=== PATIENT | female | born 1995 | race Caucasian/White ===

== ENCOUNTER 2020-08-18 16:25 | Emergency (ER) | payer OTHER, SELFPAY ==
[2020-08-18 16:52] VITALS: BP 119/92; PULSE 95; RESP 18; TEMP 37.4; O2SAT 99
[2020-08-18 17:08] VITALS: BMI 26.4
--- NOTE | 2020-08-18 17:57 | PC.NURSE ---
covid swab performed
--- NOTE | 2020-08-18 18:40 | ED.URI ---
HPI - URI/Sore Throat General Chief Complaint: Upper Respiratory Symptoms <Arthur Guan NP - Last Filed: 08/18/20 20:34> Stated Complaint: covid screening <Arthur Guan NP - Last Filed: 08/18/20 20:34> Time Seen by Provider: 08/18/20 18:40 <Arthur Guan NP - Last Filed: 08/18/20 20:34> Source: patient <Arthur Guan NP - Last Filed: 08/18/20 20:34> Mode of arrival: ambulatory <Arthur Guan NP - Last Filed: 08/18/20 20:34> Limitations: no limitations <Arthur Guan NP - Last Filed: 08/18/20 20:34> History of Present Illness HPI Narrative: 24-year-old female who reports she had runny nose and sore throat 3 days ago her symptoms resolved now her children have developed symptoms of runny nose and congestion states she would like to get tested for COVID-19. Asymptomatic otherwise. <Arthur Guan NP - Last Filed: 08/18/20 20:34> Severity: mild <Arthur Guan NP - Last Filed: 08/18/20 20:34> Able to tolerate fluids by mouth: Yes <Arthur Guan NP - Last Filed: 08/18/20 20:34> Treatments prior to arrival: none <Arthur Guan NP - Last Filed: 08/18/20 20:34> Related Data Allergies/Adverse Reactions: Allergies Allergy/AdvReac Type Severity Reaction Status Date / Time No Known Allergies Allergy Unverified 04/14/20 19:52 [No Known Allergies*] <Arthur Guan NP - Last Filed: 08/18/20 20:34> Review of Systems Review of Systems: Constitutional: No Weight loss, No Fever, No Chills, No Night Sweats, No Fatigue, No Malaise ENT/Mouth: No Hearing loss, No Ear Pain, No Nasal Congestion, No Sinus Pain, No Hoarseness, No sore throat, No Rhinorrhea, No Swallowing Difficulty Eyes: No Eye Pain, No Swelling, No Redness, No Foreign Body, No Discharge, No Vision Changes Cardiovascular: No Chest Pain, No SOB, No Dyspnea on Exertion, No Orthopnea, No Edema, No Palpitations Respiratory: No Cough, No Sputum, No Wheezing, No Smoke Exposure, No Dyspnea Gastrointestinal: No Nausea, No Vomiting, No Diarrhea, No Constipation, No abdominal Pain, No Hematochezia, No Melena Genitourinary: no irregular bleeding, No Dysuria, No Urinary Frequency, No Hematuria, No Urinary Incontinence, No Urgency, No Flank Pain, No Urinary Flow Changes, No Hesitancy Musculoskeletal: No joint pain, No Myalgias, No Joint Swelling Skin: No Skin Lesions, No rash Neuro: No Weakness, No Numbness, No Paresthesias, No Loss of Consciousness, No Dizziness, No Headache Psych: No Social Issues Heme/Lymph: No Bruising, No Bleeding,No Lymphadenopathy Endocrine: No Polyuria, No Polydipsia, No Temperature Intolerance <Arthur Guan NP - Last Filed: 08/18/20 20:34> Yes all other systems are reviewed and are negative <Arthur Guan NP - Last Filed: 08/18/20 20:34> PMFSH Past Medical History Medical History: Medical History (Updated 08/18/20 @ 18:41 by Arthur Guan NP) No significant past medical history <Arthur Guan NP - Last Filed: 08/18/20 20:34> Social History Social History: Social History Advance Directives: No Advance Directives Information Provided: No <Arthur Guan NP - Last Filed: 08/18/20 20:34> Physical Exam Vital Signs: Vital Signs: Last Vital Signs Temp 99.3 F 08/18/20 16:52 Pulse 95 08/18/20 16:52 Resp 18 08/18/20 16:52 BP 119/92 H 08/18/20 16:52 Pulse Ox 99 08/18/20 16:52 Body Mass Index 26.4 Reviewed <Arthur Guan NP - Last Filed: 08/18/20 20:34> Vital Signs: Last Vital Signs Temp 99.3 F 08/18/20 16:52 Pulse 95 08/18/20 16:52 Resp 18 08/18/20 16:52 BP 119/92 H 08/18/20 16:52 Pulse Ox 99 08/18/20 16:52 Body Mass Index 26.4 <Ross Mendoza MD - Last Filed: 08/29/20 16:48> Const: General: cooperative and healthy appearing; No acute distress or intoxicated appearing <[facility] [employer] BUSINESS [employer]ST - Last Filed: 08/18/20 20:34> Nutritional Appearance: average body habitus <[facility] [employer] BUSINESS ANALYST - Last Filed: 08/18/20 20:34> Orientation/consciousness: patient oriented x3 <[facility] - Last Filed: 08/18/20 20:34> HENMT: Head: Yes normal to inspection <[facility] [employer] BUSINESS ANALYST - Last Filed: 08/18/20 20:34> Ears: hearing grossly normal bilaterally <[facility] - Last Filed: 08/18/20 20:34> Eyes: General: appearance normal, both eyes and all related structures <[facility] - Last Filed: 08/18/20 20:34> Visual Vo: normal visual vo by confrontation <[facility] - Last Filed: 08/18/20 20:34> Neck: Neck: Yes normal visual inspection, No positive Brudzinski's sign, No positive Kernig's sign and No tender <[facility] [employer] BUSINESS ANALYST - Last Filed: 08/18/20 20:34> Thyroid: Thyroid normal <[facility] Last Filed: 08/18/20 20:34> Chest: Chest palpation & inspection: normal inspection of the chest <[facility] [employer] BUSINESS ANALYST - Last Filed: 08/18/20 20:34> Resp: Effort & Inspection: normal respiratory effort <[facility] Last Filed: 08/18/20 20:34> Auscultation: clear to auscultation bilaterally <[facility] - Last Filed: 08/18/20 20:34> Cardio: Jugular venous distension: no JVD <[facility] - Last Filed: 08/18/20 20:34> Rhythm: regular rhythm <[facility] - Last Filed: 08/18/20 20:34> Heart sounds: S1 normal heart sound present and S2 normal heart sound present <[facility] [employer] BUSINESS ANALYST - Last Filed: 08/18/20 20:34> GI: Inspection: Yes normal to inspection <[facility] [employer] BUSINESS ANALYST - Last Filed: 08/18/20 20:34> Percussion: Yes normal to percussion <Arthur Guan NP - Last Filed: 08/18/20 20:34> Auscultation: normal bowel sounds <Arthur Guan NP - Last Filed: 08/18/20 20:34> : General: Yes no CVA tenderness <Arthurshahida Guan NP - Last Filed: 08/18/20 20:34> Back/Spine/Pelvis: Back: no CVA tenderness <Arthur Guan NP - Last Filed: 08/18/20 20:34> Skin: General skin exam: no rashes or lesions noted <Arthur Guan NP - Last Filed: 08/18/20 20:34> Neuro: General: patient oriented x3 <Arthur Guan NP - Last Filed: 08/18/20 20:34> Extrem: General: Yes normal to inspection <Arthurshahida Guan NP - Last Filed: 08/18/20 20:34> Course Course Course Narrative: Asymptomatic requesting COVID-19 here with multiple family members. No other complaints. Requesting the scene to be called with results. , <Arthur Guan NP - Last Filed: 08/18/20 20:34> I have reviewed the chart <Ross Mendoza MD - Last Filed: 08/29/20 16:48> MDM - URI/Sore Throat Lab Data Labs: Lab Results 08/18/20 Range/Units 17:50 Coronavirus (PCR) NEGATIVE (Negative) Influenza Type A (PCR) NEGATIVE (Negative) Influenza Type B (PCR) NEGATIVE (Negative) RSV RNA Qual (PCR) NEGATIVE (Negative) <Arthur Guan NP - Last Filed: 08/18/20 20:34> Lab Results 08/18/20 Range/Units 17:50 Coronavirus (PCR) NEGATIVE (Negative) Influenza Type A (PCR) NEGATIVE (Negative) Influenza Type B (PCR) NEGATIVE (Negative) RSV RNA Qual (PCR) NEGATIVE (Negative) <Ross Mendoza MD - Last Filed: 08/29/20 16:48> Discharge Plan Discharge Clinical Impression: COVID-19 ruled out by laboratory testing <Arthur Guan NP - Last Filed: 08/18/20 20:34> Patient Disposition: Home, Self-Care <Arthur Guan NP - Last Filed: 08/18/20 20:34> Instructions: Viral Syndrome (ED) <Arthur Guan NP - Last Filed: 08/18/20 20:34> Additional Instructions: We will call you with the COVID-19 test results and have home Return if any concerns or worsening symptoms Follow CDC/state guidelines Thank you <Arthur Guan NP - Last Filed: 08/18/20 20:34> Referrals: ED Physician,Generic [Physician] - 1 week <Arthur Guan NP - Last Filed: 08/18/20 20:34> Discharge Date/Time: 08/18/20 18:55 <Arthur Guan NP - Last Filed: 08/18/20 20:34>
[2020-08-18 18:50] LABS: Influenza A PCR NEGATIVE (Negative); Influenza B PCR NEGATIVE (Negative); Resp Syncy Virus RNA Qual PCR NEGATIVE (Negative); SARS COV2 PCR INHOUSE NEGATIVE (Negative)
== END 2020-08-18 18:55 | disposition home or self-care (01) ==
PROVIDERS: Nurse Practitioner Primary Care; Emergency Provider Emergency Medicine
DX: U07.1 COVID-19 (principal); R09.89 Other specified symptoms and signs involving the circulatory and respiratory systems
CPT/HCPCS: 0241U; 36415; 99283

== ENCOUNTER 2021-03-14 10:41 | Emergency (ER) | payer OTHER, SELFPAY ==
--- NOTE | ~2021-03-14 | US_ITS ---
EXAMINATION: US PELVIS CLINICAL INFORMATION: Suprapubic pain. COMPARISON: None TECHNIQUE: Ultrasound of the pelvis is performed using both transabdominal and transvaginal transducers along with Doppler. Transvaginal imaging is performed due to inadequate visualization transabdominally. FINDINGS: Uterus: The uterus is anteverted and measures 10.1 x 3.2 x 4.3 cm. The double wall endometrial thickness is 0.3 mm. The uterus is smooth in contour and has normal myometrial echogenicity. No visible fibroid. Adnexa: Both ovaries are visualized. There is normal color flow to the adnexa. There is no ovarian torsion There is no pelvic ascites or fluid collection. Right ovary measures 1.2 x 2.0 x 2.2 cm (volume 2.8 mL). There is normal Doppler flow. Left ovary measures 3.2 x 1.4 x 1.3 cm (volume 3.1 mL). There is normal Doppler flow. US/US pelvic and transvaginal IMPRESSION: Unremarkable examination.
--- NOTE | ~2021-03-14 | US_ITS ---
EXAMINATION: US PELVIS CLINICAL INFORMATION: Suprapubic pain. COMPARISON: None TECHNIQUE: Ultrasound of the pelvis is performed using both transabdominal and transvaginal transducers along with Doppler. Transvaginal imaging is performed due to inadequate visualization transabdominally. FINDINGS: Uterus: The uterus is anteverted and measures 10.1 x 3.2 x 4.3 cm. The double wall endometrial thickness is 0.3 mm. The uterus is smooth in contour and has normal myometrial echogenicity. No visible fibroid. Adnexa: Both ovaries are visualized. There is normal color flow to the adnexa. There is no ovarian torsion There is no pelvic ascites or fluid collection. Right ovary measures 1.2 x 2.0 x 2.2 cm (volume 2.8 mL). There is normal Doppler flow. Left ovary measures 3.2 x 1.4 x 1.3 cm (volume 3.1 mL). There is normal Doppler flow. US/US pelvic ovarian doppler IMPRESSION: Unremarkable examination.
--- NOTE | ~2021-03-14 | CT_ITS ---
EXAMINATION: CT ABDOMEN AND PELVIS WITHOUT CONTRAST CLINICAL INFORMATION: Lower abdominal pain. COMPARISON: Pelvic ultrasound dated 03/14/2021. TECHNIQUE: Multidetector volumetric imaging was performed from the superior aspect of the liver through the pubic symphysis. Sagittal and coronal reformatted images were obtained on the technologist's workstation. This CT examination was performed using dose optimization techniques as appropriate, variously including the following: *Automated exposure control *Adjustment of mA and/or kV according to patient size (this includes techniques or standardized protocols for targeted exams where dose is matched to indication/reason for exam; i.e. extremities or head) *Use of iterative reconstruction technique DLP: 424 mGy-cm FINDINGS: LUNG BASES: The visualized lung bases are unremarkable. LIVER, GALLBLADDER, AND BILIARY TREE: The liver is normal in size, shape, and attenuation. No focal hepatic lesion or biliary ductal dilatation is present. The gallbladder is unremarkable with no evidence of radiopaque gallstones, gallbladder wall thickening, or obvious pericholecystic inflammatory changes. PANCREAS: Unremarkable. SPLEEN: Unremarkable. ADRENAL GLANDS: Unremarkable. KIDNEYS AND URETERS: The kidneys are normal in size, shape, and attenuation. No hydronephrosis, hydroureter, or calculi seen. No perinephric stranding. BLADDER: Unremarkable. GASTROINTESTINAL TRACT: There is a mild to moderate stool burden, suggesting possible constipation. No bowel obstruction, free intraperitoneal air or abscess is seen. There is no focal bowel wall thickening. No significant diverticulosis or diverticulitis is seen. The vermiform appendix is not appreciated with certainty; however, there is no finding to suggest appendicitis. ABDOMINAL WALL: No significant hernia is appreciated. LYMPH NODES: Normal. VASCULAR: Unremarkable. PELVIC VISCERA: The uterus and adnexa are unremarkable. OSSEOUS STRUCTURES: Unremarkable. CT/CT abdomen pelvis wo con IMPRESSION: 1. Findings suggest possible constipation. Please correlate clinically. No bowel obstruction, free intraperitoneal air or abscess is seen. There is no appendicitis or diverticulitis seen. 2. There is no urinary calculus or obstructive uropathy noted. 3. No abdominopelvic mass, free fluid or lymphadenopathy is seen.
[2021-03-14 11:32] VITALS: BP 121/94; PULSE 75; RESP 15; TEMP 36.6; O2SAT 100; BMI 26.4
[2021-03-14 12:28] LABS: MANUAL DIFF FLAG NO
[2021-03-14 12:32] LABS: Glucose Urine UA NEG (NEG); Leukocyte Esterase Urine 2+ (NEG); Nitrite Urine NEG (NEG); Specific Gravity - Urine 1.025 (1.005-1.025); UACC Culture Trigger YES; Urine Blood 3+ (NEG); Urine Ketones NEG (NEG); Urine Protein TRACE MG/DL (NEG-TRACE)
[2021-03-14 12:33] LABS: Appearance Urine HAZY; Color Urine YELLOW
[2021-03-14 12:34] LABS: Basophils Percent Auto 0.4 % (0-2); Eosinophils Absolute Auto 0.3 X10*3/uL (0.0-0.4); Hematocrit 44.7 % (37-47); Hemoglobin 14.5 g/dl (12.0-16.0); Imm Gran Abs Auto 0.02 X10*3/uL (0.00-0.03); Imm Gran Pct Auto 0.3 % (0.0-0.4); Lymphocytes Absolute Auto 2.4 X10*3/uL (1.2-4.9); Lymphocytes Percent Auto 30.6 % (20-40); Mean Corpuscular HGB Conc 32.4 g/dl (31.0-35.0); Mean Corpuscular Hemoglobin 28.4 pg (27.0-33.0); Mean Corpuscular Volume 87.6 fL (80-98); Mean Platelet Volume 10.2 fL (9.4-12.3); Monocytes Absolute Auto 0.3 X10*3/uL (0.1-1.2); Monocytes Percent Auto 4.1 % (2-11); Neutrophils Absolute Auto 4.8 X10*3/uL (2.0-8.3); Neutrophils Percent Auto 60.6 % (45-73); Platelet Count 286 X10*3/uL (160-400); Red Cell Distribution Width 12.5 % (11.0-16.0)
[2021-03-14 12:43] LABS: Bacteria Urine TRACE /LPF; Squamous Epithelial Cell Urine 1+ /LPF; WBC Urine 30-49 /HPF (0-4)
--- NOTE | 2021-03-14 12:43 | PC.NURSE ---
Pt currently off unit in Ultrasound. No acute distress noted. Urine specimens and labs obtained prior to departure to US.
[2021-03-14 12:44] LABS: Renal Epithelial Cells Urine 1+ /LPF
[2021-03-14 12:54] LABS: UPreg QC Valid YES; Urine Pregnancy NEGATIVE (NEGATIVE)
[2021-03-14 12:59] LABS: Alanine Aminotransferase 16 U/L (0-31); Albumin Level 4.3 g/dL (3.5-5.0); Alkaline Phosphatase 90 U/L (39-117); Anion Gap 11 (12-20); Aspartate Amino Transferase 15 U/L (5-31); Bilirubin Total 0.4 mg/dL (0.0-1.0); Blood Urea Nitrogen 9 mg/dL (9-16); Calcium 9.5 mg/dL (8.4-10.2); Carbon Dioxide 24 mmol/L (22-29); Chloride 107 mmol/L (96-108); Creatinine Clr Calc Pharmacy 102.9; Estimated Glomerular Filt Rate > 60; Glucose Random 82 mg/dL (60-115); Magnesium 2.4 mg/dL (1.6-2.6); Potassium 4.3 mmol/L (3.3-5.1); Sodium 138 mmol/L (135-145); Total Protein 7.3 g/dL (6.5-8.0)
[2021-03-14 13:17] LABS: Influenza A PCR NEGATIVE (Negative); Influenza B PCR NEGATIVE (Negative); Resp Syncy Virus RNA Qual PCR NEGATIVE (Negative); SARS COV2 PCR INHOUSE NEGATIVE (Negative)
[2021-03-14 14:00] VITALS: BP 120/70; PULSE 72; RESP 16; TEMP 36.8; O2SAT 98
--- NOTE | 2021-03-14 14:47 | ED_ITS ---
HPI - Abdominal Pain General Chief Complaint: Urogenital-Female Stated Complaint: pelvic pain Time Seen by Provider: 03/14/21 11:44 Source: patient Mode of arrival: ambulatory Limitations: no limitations History of Present Illness HPI narrative: 25-year-old female with a past surgical history of an appendectomy and a presenting to the ED with complaints of suprapubic abdominal pain with associated dysuria/increased urinary urgency/frequency and dark colored urine or the past few days worse today. Denies any fevers, chills, headaches, dizziness, chest pain, shortness of breath, radiation of the abdom inal pain, back pain, hematuria, abnormal vaginal discharge, diarrhea or constipation, recent travel or sick contacts or any other symptoms complaints or concerns at this time. Patient reports she has not had a menstrual period in approximately 2 years due to the Depo shot. MD elicited complaint: abdominal pain Pertinent past history: none Onset (ago): day(s) Pain Consistency: constant Location: suprapubic Severity: moderate Quality: cramping and aching Radiation: none Migration to: no migration Exacerbating factors: nothing Relieving factors: nothing Associated symptoms: dysuria Related Data Previous Rx's Medication Instructions Recorded docusate sodium 100 mg capsule 100 mg PO BID PRN #14 cap 03/14/21 (Colace) nitrofurantoin 100 mg PO BID 7 Days #14 cap 03/14/21 monohydrate/macrocrystals 100 mg capsule (Macrobid) phenazopyridine 100 mg tablet 100 mg PO TID PRN #6 tab 03/14/21 (Pyridium) sennosides 15 mg chewable tablet 7.5 mg PO DAILY 5 Days #3 tab 03/14/21 (Chocolate Laxative) Allergies Allergy/AdvReac Type Severity Reaction Status Date / Time No Known Allergies Allergy Unverified 04/14/20 19:52 [No Known Allergies*] Review of Systems Review of Systems Constitutional : No Weight loss, No Fever, No Chills, No Night Sweats, No Fatigue, NoMalaise ENT/Mouth: No ear pain, No sore throat, No Difficulty swallowing Cardiovascular : No Chest Pain, No SOB, No Dyspnea on Exertion, No Orthopnea, N oEdema, No Palpitations Respiratory : No Cough, No Sputum, No Wheezing, No Dyspnea Gastrointestinal : Positive suprapubic abdominal pain, No Nausea, No Vomiting, No Diarrhea, No blood streaked emesis, No coffee-ground emesis, No gross hematemesis, No blood streak stool, No gross hematochezia, No Melena Genitourinary : Positive dysuria/urinary frequency/urgency, No irregular bleeding, No Hematuria,No Urinary Incontinence, No Flank Pain Musculoskeletal : No joint pain, No Myalgias, No Joint Swelling Skin : No Skin Lesions, No rash Neuro : No Weakness, No Numbness, No Paresthesias, No Loss of Consciousness, NoDizziness, No Headache Psych : No Social Issues, Heme/Lymph: No Bruising, No Bleeding,No Lymphadenopathy Endocrine : No Polyuria, No Polydipsia, No Temperature Intolerance Yes all other systems are reviewed and are negative Physical Exam Vital Signs: Vital Signs: Last Vital Signs Temp 97.9 F 03/14/21 11:32 Pulse 75 03/14/21 11:32 Resp 15 03/14/21 11:32 BP 121/94 H 03/14/21 11:32 Pulse Ox 100 03/14/21 11:32 Body Mass Index 26.4 vital signs have been reviewed as normal and appeared to be correct. Blood pressure hypertensive at 121/94. Heart rate normal. Respiration rate normal. Temperature normal. Oxygen saturation normal. Appearance: Alert. Oriented X3. No acute distress. Head: Normal external exam. Normocephalic. Eyes: PERRLA. EOMI. Conjunctiva and sclera normal. Eyelids normal. ENT: Pharynx normal. Uvula midline. Moist mucous membranes. Neck: Normal inspection. Neck supple. FROM. No adenopathy. No meningeal signs. CVS: Normal heart rate and rhythm. Heart sound normal. No murmurs noted. Pulses normal throughout. Respiratory: No respiratory distress. Painless inspiration. Breath sounds normal. No wheezes/rales/rhonchi noted. Chest nontender. No accessory muscle usage noted or decreased air movement noted. Abdomen: Soft and and mild suprapubic abdominal tenderness. Nondistended. No guarding. No rigidity. Bowel sounds normal in all 4 quadrants. No distention noted. No organomegaly noted. No visible injury noted. No rebound tenderness. Negative Rovsing sign. Negative obturator's sign. Negative psoas sign. Negative Donnelly sign. Back: No CVA tenderness. Full range of motion noted. Skin: Skin warm and dry. Normal skin color. Normal skin turgor. No rashes/lesions/lacerations noted. Extremities: Extremities exhibit normal range of motion. Extremities nontender. Neuro: Oriented X 3. No motor deficit. No sensory deficit. Reflexes normal. Normal steady gait. Course Course Course Narrative: 12pm - 25-year-old female presenting to the ED with complaints of suprapubic abdominal pain with associated dysuria/increased urinary urgency/frequency and dark colored urine or the past few days worse today. Plan: Labs, UA, UHCG, Doppler/transvaginal/pelvic ultrasound and re-evaluate. Reevaluation(s) Reevaluation #1: - labs reviewed and all within normal limits. UA appears consistent with a UTI. UHCG negative for . Patient negative for COVID/RSV/flu. - gonorrhea/chlamydia swab pending. - transvaginal/Doppler/pelvic ultrasound unremarkable no acute processes noted. - this time I ordered a CT scan abdomen pelvis without IV contrast to evaluate for possible kidney stones if negative will DC home with antibiotics for UTI. Time: 13:22 Reevaluation #2: - CT scan abdomen pelvis revealed mild constipation otherwise no other acute processes therefore at this time will DC home with antibiotics for UTI symptomatic treatment along instructions return if any new or worsening symptoms follow-up with primary care provider. Patient understands agrees with plan. Time: 15:08 [facility] - Abdominal Pain Medical Records Attestation: I reviewed the patient's medical records. Lab Data Attestation: I reviewed the patient's lab results. Result diagrams: 03/14/21 12:16 03/14/21 12:15 Labs: Lab Results 03/14/21 03/14/21 03/14/21 Range/Units 12:15 12:15 12:15 WBC (4.8-10.8) X10*3/uL RBC (4.20-5.50) X10*6/uL Hgb (12.0-16.0) g/dl Hct (37-47) % MCV (80-98) fL MCH (27.0-33.0) pg MCHC (31.0-35.0) g/dl RDW (11.0-16.0) % Plt Count (160-400) X10*3/uL MPV (9.4-12.3) fL Immature Gran % (Auto) (0.0-0.4) % Neut % (Auto) (45-73) % Lymph % (Auto) (20-40) % Tate % (Auto) (2-11) % Eos % (Auto) (0-4) % Baso % (Auto) (0-2) % Lymph # (Auto) (1.2-4.9) X10*3/uL Tate # (Auto) (0.1-1.2) X10*3/uL Eos # (Auto) (0.0-0.4) X10*3/uL Baso # (Auto) (0.0-0.2) X10*3/uL Abs Immat Gran (auto) (0.00-0.03) X10*3/uL Absolute Neuts (auto) (2.0-8.3) X10*3/uL Absolute Nucleated RBC (0.0-0.012) X10*3/uL Nucleated RBC % (auto) (0.0-0.2) /100WBC Sodium 138 (135-145) mmol/L Potassium 4.3 (3.3-5.1) mmol/L Chloride 107 (96-108) mmol/L Carbon Dioxide 24 (22-29) mmol/L Anion Gap 11 L (12-20) BUN 9 (9-16) mg/dL Creatinine 0.72 (0.5-1.4) mg/dL Estim Creat Clear Calc 102.9 Estimated GFR > 60 Random Glucose 82 (60-115) mg/dL Calcium 9.5 (8.4-10.2) mg/dL Magnesium 2.4 (1.6-2.6) mg/dL Total Bilirubin 0.4 (0.0-1.0) mg/dL AST 15 (5-31) U/L ALT 16 (0-31) U/L Alkaline Phosphatase 90 (39-117) U/L Total Protein 7.3 (6.5-8.0) g/dL Albumin 4.3 (3.5-5.0) g/dL Urine Color Urine Appearance Urine pH (5.0-8.0) Ur Specific [place] (1.005-1.025) Urine Protein (NEG-TRACE) MG/DL Urine Glucose (UA) (NEG) MG/DL Urine Ketones (NEG) MG/DL Urine Blood (NEG) Urine Nitrite (NEG) Ur Leukocyte Esterase (NEG) Urine RBC (0) /HPF Urine WBC (0-4) /HPF Ur Squamous Epith Cells /LPF Ur Renal Epithelial Cell /LPF Urine Bacteria /LPF Urine Yeast /HPF Urine Test (NEGATIVE) Coronavirus (PCR) NEGATIVE (Negative) Influenza Type A (PCR) NEGATIVE (Negative) Influenza Type B (PCR) NEGATIVE (Negative) RSV RNA Qual (PCR) NEGATIVE (Negative) 03/14/21 03/14/21 03/14/21 Range/Units 12:16 12:16 12:16 WBC 8.0 (4.8-10.8) X10*3/uL RBC 5.10 (4.20-5.50) X10*6/uL Hgb 14.5 (12.0-16.0) g/dl Hct 44.7 (37-47) % MCV 87.6 (80-98) fL MCH 28.4 (27.0-33.0) pg MCHC 32.4 (31.0-35.0) g/dl RDW 12.5 (11.0-16.0) % Plt Count 286 (160-400) X10*3/uL MPV 10.2 (9.4-12.3) fL Immature Gran % (Auto) 0.3 (0.0-0.4) % Neut % (Auto) 60.6 (45-73) % Lymph % (Auto) 30.6 (20-40) % Tate % (Auto) 4.1 (2-11) % Eos % (Auto) 4.0 (0-4) % Baso % (Auto) 0.4 (0-2) % Lymph # (Auto) 2.4 (1.2-4.9) X10*3/uL Tate # (Auto) 0.3 (0.1-1.2) X10*3/uL Eos # (Auto) 0.3 (0.0-0.4) X10*3/uL Baso # (Auto) 0.0 (0.0-0.2) X10*3/uL Abs Immat Gran (auto) 0.02 (0.00-0.03) X10*3/uL Absolute Neuts (auto) 4.8 (2.0-8.3) X10*3/uL Absolute Nucleated RBC 0.000 (0.0-0.012) X10*3/uL Nucleated RBC % (auto) 0.0 (0.0-0.2) /100WBC Sodium (135-145) mmol/L Potassium (3.3-5.1) mmol/L Chloride (96-108) mmol/L Carbon Dioxide (22-29) mmol/L Anion Gap (12-20) BUN (9-16) mg/dL Creatinine (0.5-1.4) mg/dL Estim Creat Clear Calc Estimated GFR Random Glucose (60-115) mg/dL Calcium (8.4-10.2) mg/dL Magnesium (1.6-2.6) mg/dL Total Bilirubin (0.0-1.0) mg/dL AST (5-31) U/L ALT (0-31) U/L Alkaline Phosphatase (39-117) U/L Total Protein (6.5-8.0) g/dL Albumin (3.5-5.0) g/dL Urine Color YELLOW Urine Appearance HAZY Urine pH 6.0 (5.0-8.0) Ur Specific [place] 1.025 (1.005-1.025) Urine Protein TRACE (NEG-TRACE) MG/DL Urine Glucose (UA) NEG (NEG) MG/DL Urine Ketones NEG (NEG) MG/DL Urine Blood 3+ H (NEG) Urine Nitrite NEG (NEG) Ur Leukocyte Esterase 2+ H (NEG) Urine RBC 15-29 H (0) /HPF Urine WBC 30-49 H (0-4) /HPF Ur Squamous Epith Cells 1+ /LPF Ur Renal Epithelial Cell 1+ /LPF Urine Bacteria TRACE /LPF Urine Yeast TRACE /HPF Urine Test NEGATIVE (NEGATIVE) Coronavirus (PCR) (Negative) Influenza Type A (PCR) (Negative) Influenza Type B (PCR) (Negative) RSV RNA Qual (PCR) (Negative) Imaging Data Pelvis/Doppler/ovarian ultrasound: Attestation: I personally reviewed and interpreted this imaging study as follows: Radiologist's impression: FINDINGS: Uterus: The uterus is anteverted and measures 10.1 x 3.2 x 4.3 cm. The double wall endometrial thickness is 0.3 mm.? The uterus is smooth in contour and has normal myometrial echogenicity. ? No visible fibroid. Adnexa: Both ovaries are visualized. There is normal color flow to the adnexa. There is no ovarian torsion? There is no pelvic ascites or fluid collection. Right ovary measures 1.2 x 2.0 x 2.2 cm (volume 2.8 mL). There is normal Doppler flow. Left ovary measures 3.2 x 1.4 x 1.3 cm (volume 3.1 mL). There is normal Doppler flow. US/US pelvic ovarian doppler IMPRESSION: Unremarkable examination. CT scan abdomen pelvis with out IV contrast: Attestation: I personally reviewed and interpreted this imaging study as follows: Radiologist's impression: FINDINGS: LUNG BASES: The visualized lung bases are unremarkable.? LIVER, GALLBLADDER, AND BILIARY TREE: The liver is normal in size, shape, and attenuation. No focal hepatic lesion or biliary ductal dilatation is present. The gallbladder is unremarkable with no evidence of radiopaque gallstones, gallbladder wall thickening, or obvious pericholecystic inflammatory changes.? PANCREAS: Unremarkable.? SPLEEN: Unremarkable.? ADRENAL GLANDS: Unremarkable.? KIDNEYS AND URETERS: The kidneys are normal in size, shape, and attenuation. No hydronephrosis, hydroureter, or calculi seen. No perinephric stranding. ? BLADDER: Unremarkable.? GASTROINTESTINAL TRACT: There is a mild to moderate stool burden, suggesting possible constipation. No bowel obstruction, free intraperitoneal air or abscess is seen. There is no focal bowel wall thickening. No significant diverticulosis or diverticulitis is seen. The vermiform appendix is not appreciated with certainty; however, there is no finding to suggest appendicitis.? ABDOMINAL WALL: No significant hernia is appreciated.? LYMPH NODES: Normal. VASCULAR: Unremarkable. PELVIC VISCERA: The uterus and adnexa are unremarkable.? OSSEOUS STRUCTURES: Unremarkable.? CT/CT abdomen pelvis wo con IMPRESSION: ? 1. Findings suggest possible constipation. Please correlate clinically. No bowel obstruction, free intraperitoneal air or abscess is seen. There is no appendicitis or diverticulitis seen. ? 2. There is no urinary calculus or obstructive uropathy noted. ? 3. No abdominopelvic mass, free fluid or lymphadenopathy is seen.? Discharge Plan Discharge Clinical Impression: Urinary tract infection, Constipation Patient Disposition: Home, Self-Care Instructions: Constipation (ED), Urinary Tract Infection in Women (ED) Additional Instructions: You have pending lab results if any are positive you will be contacted. Prescriptions: New nitrofurantoin monohyd/m-cryst [Macrobid] 100 mg capsule 100 mg PO BID 7 Days Qty: 14 RF: 0 phenazopyridine [Pyridium] 100 mg tablet 100 mg PO TID PRN (Reason: pain) Qty: 6 RF: 0 docusate sodium [Colace] 100 mg capsule 100 mg PO BID PRN (Reason: Constipation) Qty: 14 RF: 0 Chocolate Laxative 15 mg tablet,chewable 7.5 mg PO DAILY 5 Days Qty: 3 RF: 0 Referrals: Physician,None [Primary Care Provider] - 2 days (your pcp) Print Language: Bulgarian [facility] Past Medical History Attestation statement: The following information was validated with the patient. Medical History No significant past medical history Surgical History History of appendectomy Social History Social History Advance Directives: No Advance Directives Information Provided: No Patient : No
[2021-03-14 15:12] LABS: CT PCR NOT DETECTED (Not Detect.); NG PCR NOT DETECTED (Not Detect.)
== END 2021-03-14 15:45 | disposition home or self-care (01) ==
PROVIDERS: Physician Assistant Medical; Emergency Provider Internal Medicine
DX: N39.0 Urinary tract infection, site not specified (principal); K59.00 Constipation, unspecified; Z20.822 Contact with and (suspected) exposure to COVID-19
CPT/HCPCS: 0241U; 36415; 74176; 76830; 76856; 80053; 81001; 81025; 83735; 85025; 87086; 87491; 87591; 93975; 99284

== ENCOUNTER 2021-05-06 14:38 | Emergency (ER) | payer OTHER, SELFPAY ==
--- NOTE | 2021-05-06 | ECG_ITS ---
Test Reason : CHEST PAIN Blood Pressure : / mmHG Vent. Rate : 075 BPM Atrial Rate : 075 BPM P-R Int : 120 ms QRS Dur : 098 ms QT Int : 378 ms P-R-T Axes : 000 127 151 degrees QTc Int : 422 ms Normal sinus rhythm Right axis deviation Nonspecific ST and T wave abnormality Abnormal ECG No previous ECGs available question limb lead reversal-advise repeat study Referred By: Generic ED Physician Electronically Signed By:JESSICA PIERRE MD
--- NOTE | ~2021-05-06 | XR_ITS ---
EXAMINATION: XR CHEST CLINICAL INFORMATION: Chest pain and shortness of breath COMPARISON: None TECHNIQUE: Frontal view of the chest was obtained. FINDINGS: Lungs are well-inflated and clear. Trachea is midline in position. No interstitial disease, consolidation or mass. No pulmonary edema, pleural effusion or pneumothorax. Cardiac silhouette and pulmonary vessels are normal in size. The mediastinum and kirill have normal contour. The visualized bones, and upper abdomen, are unremarkable. XR/XR chest 1V IMPRESSION: No acute cardiopulmonary abnormality.
[2021-05-06 15:39] VITALS: BP 132/91; PULSE 78; RESP 80; TEMP 37.2; O2SAT 100; BMI 24.5
[2021-05-06 18:25] VITALS: BP 136/87; PULSE 76; RESP 20; O2SAT 99
--- NOTE | 2021-05-06 20:33 | ED_ITS ---
HPI - Chest Pain General Chief Complaint: Chest Pain Stated Complaint: diff breathing, chest pain Time Seen by Provider: 05/06/21 16:21 Source: patient Mode of arrival: ambulatory Limitations: no limitations History of Present Illness HPI narrative: 25-year-old female who presents emergency department for evaluation of sudden onset left-sided chest pain. At 2:00 p.m., the patient was at work. 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 She had a sudden onset of sharp left-sided chest pain. She points to her left breast and left shoulder when asked to localize the pain. She states that the pain was a sharp, constant pain which did not change with movement or breathing she states the pain radiated to her left shoulder and down her left arm. She feels short of breath and had associated dyspnea on exertion. She denied fever, chills, nausea, vomiting, lightheadedness, dizziness, diaphoresis, abdominal pain. The patient states that this is her 1st episode of this type of pain. She denies any pain or swelling in her extremities. She has not been on any long trips recently. She is not aware of any history of clotting disorders in her family. The patient is on Depo-Provera and she gets a shot every 3 months. She states that she is due for her next injection in June of 2021. Related Data Previous Rx's Medication Instructions Recorded docusate sodium 100 mg capsule 100 mg PO BID PRN #14 cap 03/14/21 (Colace) nitrofurantoin 100 mg PO BID 7 Days #14 cap 03/14/21 monohydrate/macrocrystals 100 mg capsule (Macrobid) phenazopyridine 100 mg tablet 100 mg PO TID PRN #6 tab 03/14/21 (Pyridium) sennosides 15 mg chewable tablet 7.5 mg PO DAILY 5 Days #3 tab 03/14/21 (Chocolate Laxative) Allergies Allergy/AdvReac Type Severity Reaction Status Date / Time No Known Allergies Allergy Unverified 04/14/20 19:52 [No Known Allergies*] Review of Systems Review of Systems: Yes all other systems are reviewed and are negative [facility] Past Medical History [facility] Narrative: Past medical history: . Past surgical history: None. 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 She denies tobacco, alcohol and drug use. Medical History No significant past medical history Surgical History History of appendectomy Social History Social History Alcohol intake: never Patient Tobacco Use Status: Never used Tobacco Use of substances other than those prescribed or required for medical reasons: No Advance Directives: No Advance Directives Information Provided: No Patient : No Physical Exam Vital Signs: Vital Signs: Last Vital Signs Temp 98.7 F 05/06/21 21:03 Pulse 66 05/06/21 21:03 Resp 18 05/06/21 21:03 BP 129/84 05/06/21 21:03 Pulse Ox 100 05/06/21 21:03 Body Mass Index 24.5 Const: General: cooperative and no acute distress Orientation/consciousnes s: oriented to person and oriented to place Limitations: no limitations HENMT: Head: Yes normal to inspection, Yes normocephalic and Yes atraumatic Ears: external ears normal General nose exam: Normal external nose present Face and sinus: Yes normal facial exam Mouth: Normal oral and palatal mucosa present Throat: Yes posterior oropharynx normal Eyes: General: appearance normal, both eyes and all related structures Pupils: Equal, round and reactive pupils present Neck: Neck: Yes normal visual inspection, Yes no lymphadenopathy, Yes trachea midline and Yes supple Chest: Chest palpation & inspection: normal inspection of the chest and tenderness sternum, costochondral junction and costal cartilage Resp: Effort & Inspection: normal respiratory effort and able to speak in complete sentences Auscultation: clear to auscultation bilaterally Cardio: Rate: regular rate Rhythm: regular rhythm Heart sounds: S1 normal heart sound present, S2 normal heart sound present and no murmurs GI: Inspection: Yes normal to inspection Palpation (GI): Soft to palpation, nontender and no guarding Auscultation: normal bowel sounds : General: Yes no CVA tenderness Back/Spine/Pelvis: Back: no CVA tenderness Skin: General skin exam: no rashes or lesions noted Neuro: General: oriented to person and oriented to place Cranial nerves: Yes CN's II-XII intact bilaterally and Yes Equal, round and reactive pupils present Cognition (Neuro): normal cognition Motor exam (neuro): 5/5 motor strength present throughout Extrem: General: Yes normal to inspection Psych: Appearance: grossly normal Speech and movement: Normal speech and movement present Affect: normal affect Attitude: cooperative Thought process: Normal thought process present Thought content: Normal thought content present Course Course Course Narrative: 25-year-old female who presents emergency department for evaluation of sudden onset of left-sided chest pain associated with shortness of breath and dyspnea on exertion. The pain does radiate down left arm. The pain did not change with breathing or with movement. Patient's vital signs revealed a normal respiratory rate of 20 and normal pulse of 76. O2 saturation was 99- 100% on room air. The patient does have significant chest wall tenderness. The patient however does take Depo-Provera which does put her at increased risk for pulmonary embolism. The patient's chest x-ray and 12 EKG for unremarkable. I did order a CBC, CMP, INR, PTT and D-dimer. The patient's pain was treated with Toradol 30 mg IV. 2110: The patient's CBC revealed a normal WBC of 6200, she has increased number of lymphocytes 51%. H&H was normal. Coags revealed a non elevated D-dimer. Comprehensive metabolic panel was unremarkable. I did discuss these results with the patient. Given the patient's chest wall tenderness, she most likely has acute costochondritis. She was advised to take ibuprofen 60 mg every 6 hours as needed for pain and extra-strength Tylenol 1000 mg every 6 hours as needed for pain. She was given a note not return to work 05/11/2021. MDM - Chest Pain Lab Data Result diagrams: 05/06/21 20:49 05/06/21 20:49 Labs: Lab Results 05/06/21 05/06/21 05/06/21 Range/Units 20:49 20:49 20:49 WBC 6.2 (4.8-10.8) X10*3/uL RBC 4.87 (4.20-5.50) X10*6/uL Hgb 14.2 (12.0-16.0) g/dl Hct 41.9 (37-47) % MCV 86.0 (80-98) fL MCH 29.2 (27.0-33.0) pg MCHC 33.9 (31.0-35.0) g/dl RDW 12.3 (11.0-16.0) % Plt Count 266 (160-400) X10*3/uL MPV 10.0 (9.4-12.3) fL Immature Gran % (Auto) 0.2 (0.0-0.4) % Neut % (Auto) 39.1 L (45-73) % Lymph % (Auto) 51.0 H (20-40) % [place] % (Auto) 5.2 (2-11) % Eos % (Auto) 4.2 H (0-4) % Baso % (Auto) 0.3 (0-2) % Lymph # (Auto) 3.1 (1.2-4.9) X10*3/uL [place] # (Auto) 0.3 (0.1-1.2) X10*3/uL Eos # (Auto) 0.3 (0.0-0.4) X10*3/uL Baso # (Auto) 0.0 (0.0-0.2) X10*3/uL Abs Immat Gran (auto) 0.01 (0.00-0.03) X10*3/uL Absolute Neuts (auto) 2.4 (2.0-8.3) X10*3/uL Absolute Nucleated RBC 0.000 (0.0-0.012) X10*3/uL Nucleated RBC % (auto) 0.0 (0.0-0.2) /100WBC PT 13.1 H (9.9-13.0) SEC INR 1.2 H (0.9-1.1) APTT 35.9 (24.1-38.0) SEC D-Dimer < 200 NG/ML Sodium 141 (135-145) mmol/L Potassium 3.6 (3.3-5.1) mmol/L Chloride 109 H (96-108) mmol/L Carbon Dioxide 25 (22-29) mmol/L Anion Gap 11 L (12-20) BUN 8 L (9-16) mg/dL Creatinine 0.70 (0.5-1.4) mg/dL Estim Creat Clear Calc 102.2 Estimated GFR > 60 Random Glucose 96 (60-115) mg/dL Calcium 9.1 (8.4-10.2) mg/dL Total Bilirubin 0.6 (0.0-1.0) mg/dL AST 15 (5-31) U/L ALT 12 (0-31) U/L Alkaline Phosphatase 82 (39-117) U/L Total Protein 6.7 (6.5-8.0) g/dL Albumin 4.0 (3.5-5.0) g/dL ECG Data ECG #1: Interpretation: 1549: Normal sinus rhythm rate of 75, normal NE interval QRS duration and QTC interval. No ST segment elevation, no ST segment depression, inverted T-wave in lead 1 , aVL and V1. No ST segment elevation, no ST segment depression, no PACs, no PVCs. The limb leadsAVR and aVL appear to be reverse, this does not change the interpretation. Discharge Plan Discharge Clinical Impression: Costalchondritis Patient Disposition: Home, Self-Care Instructions: Costochondritis (ED) Additional Instructions: Your chest x-ray was normal. Your 12 EKG (electrical picture of your was normal. Your blood work was normal, your D-dimer (marker of making too many blood clots) was below detectable limits which is very reassuring suggesting that your pain is not caused by a blood clot to your lungs. On your exam your very tender when I pushed on the joints of your chest. Your pain is most likely caused by inflammation of your chest joints (costochondritis). Take ibuprofen 200 mg pills, 3 pills every 6 hours as needed for pain. Take Tylenol (acetaminophen) 500 mg pills, 2 pills every 4 to 6 hours as needed for pain. Follow-up with your doctor in 2 days. Please return to the emergency department if your symptoms get worse or if you develop any symptoms that are concerning to you. Please see work note Prescriptions: No Action nitrofurantoin monohyd/m-cryst [Macrobid] 100 mg capsule 100 mg PO BID 7 Days Qty: 14 RF: 0 phenazopyridine [Pyridium] 100 mg tablet 100 mg PO TID PRN (Reason: pain) Qty: 6 RF: 0 docusate sodium [Colace] 100 mg capsule 100 mg PO BID PRN (Reason: Constipation) Qty: 14 RF: 0 Chocolate Laxative 15 mg tablet,chewable 7.5 mg PO DAILY 5 Days Qty: 3 RF: 0 Stand Alone Forms: Work/School Release
[2021-05-06 20:55] LABS: MANUAL DIFF FLAG NO
[2021-05-06 20:56] LABS: Basophils Percent Auto 0.3 % (0-2); Eosinophils Absolute Auto 0.3 X10*3/uL (0.0-0.4); Eosinophils Percent Auto 4.2 % (0-4); Hematocrit 41.9 % (37-47); Hemoglobin 14.2 g/dl (12.0-16.0); Imm Gran Abs Auto 0.01 X10*3/uL (0.00-0.03); Imm Gran Pct Auto 0.2 % (0.0-0.4); Lymphocytes Absolute Auto 3.1 X10*3/uL (1.2-4.9); Mean Corpuscular HGB Conc 33.9 g/dl (31.0-35.0); Mean Corpuscular Hemoglobin 29.2 pg (27.0-33.0); Monocytes Absolute Auto 0.3 X10*3/uL (0.1-1.2); Monocytes Percent Auto 5.2 % (2-11); Neutrophils Absolute Auto 2.4 X10*3/uL (2.0-8.3); Neutrophils Percent Auto 39.1 % (45-73); Platelet Count 266 X10*3/uL (160-400); Red Blood Count 4.87 X10*6/uL (4.20-5.50); Red Cell Distribution Width 12.3 % (11.0-16.0); White Blood Count 6.2 X10*3/uL (4.8-10.8)
[2021-05-06] MEDS: Ketorolac Tromethamine 15 MG/ML VIAL 30 MG IVPUSH (21:01)
[2021-05-06 21:02] LABS: INTERNATIONAL NORM RATIO 1.2 (0.9-1.1); Prothrombin Time 13.1 SEC (9.9-13.0)
[2021-05-06 21:03] VITALS: BP 129/84; PULSE 66; RESP 18; TEMP 37.1; O2SAT 100
[2021-05-06 21:04] LABS: Partial Thromboplastin Time 35.9 SEC (24.1-38.0)
[2021-05-06 21:05] LABS: D Dimer < 200 NG/ML
--- NOTE | 2021-05-06 21:05 | PC.NURSE ---
Patient a&ox3, iv inserted, labs drawn, pt medicated per order, cardiac nurse applied nsr 70s, vss, will continue to monitor.
[2021-05-06 21:10] LABS: Alanine Aminotransferase 12 U/L (0-31); Alkaline Phosphatase 82 U/L (39-117); Anion Gap 11 (12-20); Aspartate Amino Transferase 15 U/L (5-31); Bilirubin Total 0.6 mg/dL (0.0-1.0); Blood Urea Nitrogen 8 mg/dL (9-16); Calcium 9.1 mg/dL (8.4-10.2); Carbon Dioxide 25 mmol/L (22-29); Chloride 109 mmol/L (96-108); Creatinine Clr Calc Pharmacy 102.2; Estimated Glomerular Filt Rate > 60; Glucose Random 96 mg/dL (60-115); Potassium 3.6 mmol/L (3.3-5.1); Sodium 141 mmol/L (135-145); Total Protein 6.7 g/dL (6.5-8.0)
== END 2021-05-06 21:26 | disposition home or self-care (01) ==
PROVIDERS: Emergency Provider Emergency Medicine Emergency Medical Services
DX: M94.0 Chondrocostal junction syndrome [Tietze] (principal); R06.02 Shortness of breath; R07.9 Chest pain, unspecified; Z79.899 Other long term (current) drug therapy
CPT/HCPCS: 36415; 71045; 80053; 85025; 85379; 85610; 85730; 93005; 96374; 99284; 99285; J1885

== ENCOUNTER 2021-05-12 13:57 | Emergency (ER) | payer OTHER, SELFPAY ==
--- NOTE | 2021-05-12 | ECG_ITS ---
Test Reason : CHEST PAIN Blood Pressure : / mmHG Vent. Rate : 103 BPM Atrial Rate : 103 BPM P-R Int : 138 ms QRS Dur : 092 ms QT Int : 336 ms P-R-T Axes : 045 053 025 degrees QTc Int : 440 ms Sinus tachycardia Nonspecific ST abnormality Inferior leads Abnormal ECG Heart rate has increased Referred By: Generic ED Physician Electronically Signed By:JESSCIA PIERRE MD
[2021-05-12 14:18] VITALS: BP 117/84; PULSE 102; RESP 18; TEMP 36.8; O2SAT 100; BMI 26.0
--- NOTE | 2021-05-12 14:23 | PC.NURSE ---
pt not given zofran in triage as she took it at home.
[2021-05-12 14:41] LABS: Appearance Urine CLEAR; Color Urine YELLOW; Glucose Urine UA NEG (NEG); Leukocyte Esterase Urine NEG (NEG); Nitrite Urine NEG (NEG); PH 5.5 (5.0-8.0); Specific Gravity - Urine 1.025 (1.005-1.025); UACC Culture Trigger NO; Urine Blood TRACE (NEG); Urine Ketones NEG (NEG); Urine Protein NEG (NEG-TRACE)
[2021-05-12 14:55] LABS: Bacteria Urine TRACE /LPF; Mucus Urine 2+ /LPF; RBC Urine 0-2 /HPF (0); Squamous Epithelial Cell Urine 2+ /LPF; WBC Urine 0 /HPF (0-4)
[2021-05-12 15:17] LABS: Basophils Percent Auto 0.1 % (0-2); Eosinophils Absolute Auto 0.1 X10*3/uL (0.0-0.4); Eosinophils Percent Auto 0.7 % (0-4); Hematocrit 46.5 % (37-47); Hemoglobin 15.5 g/dl (12.0-16.0); Imm Gran Abs Auto 0.02 X10*3/uL (0.00-0.03); Imm Gran Pct Auto 0.3 % (0.0-0.4); Lymphocytes Absolute Auto 0.4 X10*3/uL (1.2-4.9); Lymphocytes Percent Auto 5.7 % (20-40); MANUAL DIFF FLAG SCAN; Mean Corpuscular HGB Conc 33.3 g/dl (31.0-35.0); Mean Corpuscular Hemoglobin 28.7 pg (27.0-33.0); Mean Corpuscular Volume 86.1 fL (80-98); Mean Platelet Volume 10.2 fL (9.4-12.3); Monocytes Absolute Auto 0.2 X10*3/uL (0.1-1.2); Monocytes Percent Auto 2.2 % (2-11); Neutrophils Absolute Auto 6.7 X10*3/uL (2.0-8.3); Platelet Count 241 X10*3/uL (160-400); Red Cell Distribution Width 12.4 % (11.0-16.0); SCAN SMEAR FLAG 1; White Blood Count 7.4 X10*3/uL (4.8-10.8)
[2021-05-12 15:34] LABS: Alanine Aminotransferase 15 U/L (0-31); Albumin Level 4.4 g/dL (3.5-5.0); Alkaline Phosphatase 86 U/L (39-117); Anion Gap 12 (12-20); Aspartate Amino Transferase 17 U/L (5-31); Bilirubin Direct 0.3 mg/dL (0.0-0.5); Blood Urea Nitrogen 15 mg/dL (9-16); Calcium 9.6 mg/dL (8.4-10.2); Carbon Dioxide 24 mmol/L (22-29); Chloride 110 mmol/L (96-108); Creatinine Clr Calc Pharmacy 96.7; Estimated Glomerular Filt Rate > 60; Glucose Random 88 mg/dL (60-115); Lipase 20 U/L (8-78); Potassium 4.7 mmol/L (3.3-5.1); Sodium 141 mmol/L (135-145); Total Protein 7.5 g/dL (6.5-8.0)
[2021-05-12 15:56] LABS: SLIDE REVIEW VERIFIED
--- NOTE | 2021-05-12 18:00 | ED_ITS ---
HPI - Nausea/Vomiting/Diarrhea General Chief complaint: Nausea/Vomiting/Diarrhea Stated complaint: vomiting, diff breathing, diarrhea Time Seen by Provider: 05/12/21 18:00 Source: patient Mode of arrival: ambulatory Limitations: no limitations History of Present Illness HPI Narrative: seen 05/06 negative EKG, neg ddimer dx with costochondritis, CXR normal at that time as well. MD elicited complaint: nausea, vomiting and abdominal pain Pertinent past history: other (dx with costochondritis last week) Onset (ago): day(s) (woke up this AM with symptoms) Description of vomiting: food contents and watery Associated nausea: Yes Associated abdominal pain: Yes Location of pain: diffuse Radiation: diffuse Pain consistency: constant Severity: moderate Quality: cramping Exacerbating factors: eating Relieving factors: none Associated symptoms: chest pain (states her chest pain never improved) and nausea/vomiting Related Data Previous Rx's Medication Instructions Recorded docusate sodium 100 mg capsule 100 mg PO BID PRN #14 cap 03/14/21 (Colace) nitrofurantoin 100 mg PO BID 7 Days #14 cap 03/14/21 monohydrate/macrocrystals 100 mg capsule (Macrobid) phenazopyridine 100 mg tablet 100 mg PO TID PRN #6 tab 03/14/21 (Pyridium) sennosides 15 mg chewable tablet 7.5 mg PO DAILY 5 Days #3 tab 03/14/21 (Chocolate Laxative) cyclobenzaprine 10 mg tablet 10 mg PO TID PRN #14 tab 05/12/21 promethazine 25 mg rectal 25 mg NM Q6H PRN #12 ea 05/12/21 suppository Allergies Allergy/AdvReac Type Severity Reaction Status Date / Time No Known Allergies Allergy Verified 05/12/21 14:18 [No Known Allergies*] Review of Systems Review of Systems: Constitutional : No Weight loss, No Fever, No Chills ENT/Mouth : No sore throat, No Rhinorrhea Eyes: No Swelling, No Redness Cardiovascular : pos Chest Pain, No SOB, NoEdema Respiratory : No Cough, No Sputum, No Wheezing Gastrointestinal : Positive Nausea, Positive Vomiting, positive Diarrhea, positive abdominal Pain, No Hematochezia, No Melena Genitourinary : No Dysuria, No Urinary Frequency, No Hematuria, No Urgency Musculoskeletal : No joint pain, No Myalgias, No Joint Swelling Skin : No Skin Lesions, No rash Neuro : No Weakness, No Numbness, No Dizziness, No Headache Psych : No Anxiety/Panic, No Depression Heme/Lymph: No Bruising, No Lymphadenopathy Endocrine : No Polyuria, No Polydipsia All other systems reviewed and are negative. Gastrointestinal: Gastrointestinal: Reports nausea PMFSH Past Medical History Attestation statement: The following information was validated with the patient. Medical History Costochondritis Surgical History History of appendectomy [place] teeth extracted Social History Social History Alcohol intake: never Patient Tobacco Use Status: Never used Tobacco Use of substances other than those prescribed or required for medical reasons: No Advance Directives: No Patient : No Physical Exam Vital Signs: Vital Signs: Last Vital Signs Temp 98.3 F 05/12/21 14:18 Pulse 102 H 05/12/21 14:18 Resp 18 05/12/21 14:18 BP 117/84 05/12/21 14:18 Pulse Ox 100 05/12/21 14:18 Body Mass Index 26.0 Appearance: Alert. Oriented X3. No acute distress. Eyes: Pupils equal, round and reactive to light. ENT: Pharynx normal. Neck: Normal inspection. Neck supple. CVS: Normal heart rate and rhythm. Pulses normal. Chest: ttp along sternal rib border Respiratory: No respiratory distress. Breath sounds normal. Abdomen: Soft and mild diffuse ttp no rebound or guarding Skin: Skin warm and dry. Normal skin color. Normal skin turgor. Extremities: No lower extremity edema. No calf ttp Neuro: Oriented X 3. No motor deficit. No sensory deficit. Course Course Course Narrative: feeling better stable for DC MDM - Nausea/Vomiting/Diarrhea MDM Narrative Medical decision making narrative: 25 yo female no sig PMH here with c/o n/v/d and abdominal cramps all day no risk factors no abx use, also notes her CWP has worsened she has no ACS risk factors, pain is reproduceable has no signs of DVT on depo has slight tachycardia but I do not think she has a PE - dispo per results and findings. Lab Data Result diagrams: 05/12/21 15:10 05/12/21 15:10 Labs: Lab Results 05/12/21 05/12/21 05/12/21 Range/Units 14:31 14:31 15:10 WBC 7.4 (4.8-10.8) X10*3/uL RBC 5.40 (4.20-5.50) X10*6/uL Hgb 15.5 (12.0-16.0) g/dl Hct 46.5 (37-47) % MCV 86.1 (80-98) fL MCH 28.7 (27.0-33.0) pg MCHC 33.3 (31.0-35.0) g/dl RDW 12.4 (11.0-16.0) % Plt Count 241 (160-400) X10*3/uL MPV 10.2 (9.4-12.3) fL Immature Gran % (Auto) 0.3 (0.0-0.4) % Neut % (Auto) 91.0 H (45-73) % Lymph % (Auto) 5.7 L (20-40) % [place] % (Auto) 2.2 (2-11) % Eos % (Auto) 0.7 (0-4) % Baso % (Auto) 0.1 (0-2) % Lymph # (Auto) 0.4 L (1.2-4.9) X10*3/uL [place] # (Auto) 0.2 (0.1-1.2) X10*3/uL Eos # (Auto) 0.1 (0.0-0.4) X10*3/uL Baso # (Auto) 0.0 (0.0-0.2) X10*3/uL Abs Immat Gran (auto) 0.02 (0.00-0.03) X10*3/uL Absolute Neuts (auto) 6.7 (2.0-8.3) X10*3/uL Absolute Nucleated RBC 0.000 (0.0-0.012) X10*3/uL Nucleated RBC % (auto) 0.0 (0.0-0.2) /100WBC Smear Tech's Comments VERIFIED Sodium (135-145) mmol/L Potassium (3.3-5.1) mmol/L Chloride (96-108) mmol/L Carbon Dioxide (22-29) mmol/L Anion Gap (12-20) BUN (9-16) mg/dL Creatinine (0.5-1.4) mg/dL Estim Creat Clear Calc Estimated GFR Random Glucose (60-115) mg/dL Calcium (8.4-10.2) mg/dL Total Bilirubin (0.0-1.0) mg/dL Direct Bilirubin (0.0-0.5) mg/dL AST (5-31) U/L ALT (0-31) U/L Alkaline Phosphatase (39-117) U/L Total Protein (6.5-8.0) g/dL Albumin (3.5-5.0) g/dL Lipase (8-78) U/L Urine Color YELLOW Urine Appearance CLEAR Urine pH 5.5 (5.0-8.0) Ur Specific [place] 1.025 (1.005-1.025) Urine Protein NEG (NEG-TRACE) MG/DL Urine Glucose (UA) NEG (NEG) MG/DL Urine Ketones NEG (NEG) MG/DL Urine Blood TRACE (NEG) Urine Nitrite NEG (NEG) Ur Leukocyte Esterase NEG (NEG) Urine RBC 0-2 (0) /HPF Urine WBC 0 (0-4) /HPF Ur Squamous Epith Cells 2+ /LPF Urine Bacteria TRACE /LPF Urine Mucus 2+ /LPF Urine Test NEGATIVE (NEGATIVE) COVID-19 ([place]) (Negative) COVID-19 Clin Com 05/12/21 05/12/21 Range/Units 15:10 21:45 WBC (4.8-10.8) X10*3/uL RBC (4.20-5.50) X10*6/uL Hgb (12.0-16.0) g/dl Hct (37-47) % MCV (80-98) fL MCH (27.0-33.0) pg MCHC (31.0-35.0) g/dl RDW (11.0-16.0) % Plt Count (160-400) X10*3/uL MPV (9.4-12.3) fL Immature Gran % (Auto) (0.0-0.4) % Neut % (Auto) (45-73) % Lymph % (Auto) (20-40) % [place] % (Auto) (2-11) % Eos % (Auto) (0-4) % Baso % (Auto) (0-2) % Lymph # (Auto) (1.2-4.9) X10*3/uL [place] # (Auto) (0.1-1.2) X10*3/uL Eos # (Auto) (0.0-0.4) X10*3/uL Baso # (Auto) (0.0-0.2) X10*3/uL Abs Immat Gran (auto) (0.00-0.03) X10*3/uL Absolute Neuts (auto) (2.0-8.3) X10*3/uL Absolute Nucleated RBC (0.0-0.012) X10*3/uL Nucleated RBC % (auto) (0.0-0.2) /100WBC Smear Tech's Comments Sodium 141 (135-145) mmol/L Potassium 4.7 D (3.3-5.1) mmol/L Chloride 110 H (96-108) mmol/L Carbon Dioxide 24 (22-29) mmol/L Anion Gap 12 (12-20) BUN 15 D (9-16) mg/dL Creatinine 0.76 (0.5-1.4) mg/dL Estim Creat Clear Calc 96.7 Estimated GFR > 60 Random Glucose 88 (60-115) mg/dL Calcium 9.6 (8.4-10.2) mg/dL Total Bilirubin 1.0 (0.0-1.0) mg/dL Direct Bilirubin 0.3 (0.0-0.5) mg/dL AST 17 (5-31) U/L ALT 15 (0-31) U/L Alkaline Phosphatase 86 (39-117) U/L Total Protein 7.5 (6.5-8.0) g/dL Albumin 4.4 (3.5-5.0) g/dL Lipase 20 (8-78) U/L Urine Color Urine Appearance Urine pH (5.0-8.0) Ur Specific [place] (1.005-1.025) Urine Protein (NEG-TRACE) MG/DL Urine Glucose (UA) (NEG) MG/DL Urine Ketones (NEG) MG/DL Urine Blood (NEG) Urine Nitrite (NEG) Ur Leukocyte Esterase (NEG) Urine RBC (0) /HPF Urine WBC (0-4) /HPF Ur Squamous Epith Cells /LPF Urine Bacteria /LPF Urine Mucus /LPF Urine Test (NEGATIVE) COVID-19 ([place]) Negative (Negative) COVID-19 Clin Com See Note ECG Data Attestation: I personally reviewed and interpreted this ECG as follows: ECG interpretation date: 05/12/21 ECG interpretation time: 18:01 Interpretation: Rate: 103 Rhythm: sinus tachycardia [place]: normal Normal P waves. Normal [place]. Normal QRS complex. ST T wave : no [place]< normal qTC: normal prior studies: no acute ischemia The study has been interpreted contemporaneously by me. . Discharge Plan Discharge Clinical Impression: Vomiting, Diarrhea Patient Disposition: Home, Self-Care Instructions: Acute Nausea and Vomiting (ED), Acute Diarrhea (ED) Additional Instructions: return to ED for any worsening symptoms or concerns NEGATIVE FOR COVID Prescriptions: New cyclobenzaprine 10 mg tablet 10 mg PO TID PRN (Reason: muscle spasm) Qty: 14 RF: 0 promethazine 25 mg suppository 25 mg NM Q6H PRN (Reason: nausea and vomiting) Qty: 12 RF: 0 No Action nitrofurantoin monohyd/m-cryst [Macrobid] 100 mg capsule 100 mg PO BID 7 Days Qty: 14 RF: 0 phenazopyridine [Pyridium] 100 mg tablet 100 mg PO TID PRN (Reason: pain) Qty: 6 RF: 0 docusate sodium [Colace] 100 mg capsule 100 mg PO BID PRN (Reason: Constipation) Qty: 14 RF: 0 Chocolate Laxative 15 mg tablet,chewable 7.5 mg PO DAILY 5 Days Qty: 3 RF: 0 Stand Alone Forms: Work/School Release
[2021-05-12 18:20] LABS: UPreg QC Valid YES; Urine Pregnancy NEGATIVE (NEGATIVE)
[2021-05-12] MEDS: Ketorolac Tromethamine 15 MG/ML VIAL 30 MG IVPUSH (20:47)
[2021-05-12] MEDS: 0.9 % Sodium Chloride 1,000 ML 999 ML IV (20:47)
[2021-05-12] MEDS: ondansetron HCL 4 MG/2 ML VIAL IVPUSH (20:48)
--- NOTE | 2021-05-12 21:32 | PC.NURSE ---
Pt alert and oriented x4, clam and cooperative. pt states abd pain and nausea. pt received IV meds and tolerated well. IV intact, vitals stable. Pt resting in stretcher sleeping at this time, will continue to monitor.
[2021-05-12] MEDS: Cyclobenzaprine HCl 10 MG TABLET PO (21:52)
[2021-05-12] MEDS: Lidocaine 4 % Patch ADH..PATCH 1 PATCH TRANSDERMA (21:53)
[2021-05-12 22:13] LABS: COVID-19 Test Negative (Negative)
[2021-05-12 22:31] VITALS: BP 122/64; PULSE 86; RESP 18; TEMP 37; O2SAT 98
== END 2021-05-12 22:31 | disposition home or self-care (01) ==
PROVIDERS: Emergency Provider Emergency Medicine
DX: R11.2 Nausea with vomiting, unspecified (principal); R19.7 Diarrhea, unspecified; Z20.822 Contact with and (suspected) exposure to COVID-19; Z79.899 Other long term (current) drug therapy
CPT/HCPCS: 36415; 80048; 80076; 81001; 81025; 83690; 85025; 87635; 93005; 96361; 96374; 96375; 99284; 99285; J1885; J2405

== ENCOUNTER 2021-07-08 18:30 | Emergency (ER) | payer OTHER, SELFPAY ==
--- NOTE | ~2021-07-08 | XR_ITS ---
EXAMINATION: XR HAND, RIGHT CLINICAL INFORMATION: Pain. COMPARISON: None TECHNIQUE: PA, lateral, and oblique views of the right hand. FINDINGS: The bones and soft tissues are normal. No fracture. Alignment is anatomic. Joint spaces are maintained. No erosions or soft tissue calcifications. XR/XR hand RT min 3V IMPRESSION: Unremarkable examination.
[2021-07-08 18:51] VITALS: BP 124/85; PULSE 98; RESP 18; TEMP 36.9; O2SAT 98; BMI 26.2
--- NOTE | 2021-07-08 20:06 | ED.EXTPRO ---
HPI - Extremity Problem General Chief complaint: Extremity Injury, Upper Stated complaint: hand injury - work related Time Seen by Provider: 07/08/21 20:06 Source: patient Mode of arrival: ambulatory Limitations: no limitations History of Present Illness HPI Narrative: 25-year-old female came in for evaluation of right hand/ right wrist injury at work. 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 Patient reportedly no other injury. Related Data Previous Rx's Medication Instructions Recorded docusate sodium 100 mg capsule 100 mg PO BID PRN #14 cap 03/14/21 (Colace) nitrofurantoin 100 mg PO BID 7 Days #14 cap 03/14/21 monohydrate/macrocrystals 100 mg capsule (Macrobid) phenazopyridine 100 mg tablet 100 mg PO TID PRN #6 tab 03/14/21 (Pyridium) sennosides 15 mg chewable tablet 7.5 mg PO DAILY 5 Days #3 tab 03/14/21 (Chocolate Laxative) cyclobenzaprine 10 mg tablet 10 mg PO TID PRN #14 tab 05/12/21 promethazine 25 mg rectal 25 mg MN Q6H PRN #12 ea 05/12/21 suppository Allergies Allergy/AdvReac Type Severity Reaction Status Date / Time No Known Allergies Allergy Verified 07/08/21 19:16 [No Known Allergies*] Review of Systems Review of Systems: All other systems are reviewed and are negative Constitutional: Reports as per HPI and Reports no additional constitutional complaints Eyes: Reports as per HPI and Reports no additional eye complaints Reports system reviewed and no additional complaints, except as documented Cardiovascular: Reports as per HPI and Reports no additional cardiovascular complaints Respiratory: Reports as per HPI and Reports no additional respiratory complaints Gastrointestinal: Reports as per HPI and Reports no additional gastrointestinal complaints Genitourinary: Reports no additional female genitourinary complaints Musculoskeletal: Reports no additional musculoskeletal complaints Skin/Breast: Reports system reviewed and no additional complaints, except as docu Psychiatric: Reports no additional psychiatric complaints Endocrine: Reports no additional endocrine complaints Hematologic/Lymphatic: Reports no additional hematologic/lymphatic complaints Allergic/Immunologic: Reports no additional allergic/immunologic complaints Reports system reviewed and no additional complaints, except as documented and Reports Abnormal speech present [facility] Past Medical History Medical History Costochondritis Surgical History History of appendectomy [place] teeth extracted Social History Social History Alcohol intake: never Patient Tobacco Use Status: Never used Tobacco Advance Directives: No Patient : No Physical Exam Vital Signs: Vital Signs: Last Vital Signs Temp 98.5 F 07/08/21 18:51 Pulse 98 07/08/21 18:51 Resp 18 07/08/21 18:51 BP 124/85 07/08/21 18:51 Pulse Ox 98 07/08/21 18:51 BMI result Body Mass Index 26.2 vital signs have been reviewed as appeared to be correct. Blood pressure normal. Heart rate normal. Respiration rate normal. Temperature normal. Oxygen saturation normal. Appearance: Alert. Oriented X3. No acute distress. Head: Normal external exam. Normocephalic. Atraumatic. No Interiano signs noted. No raccoon eyes noted Eyes: PERRLA. EOMI. Conjunctiva and sclera normal. Eyelids normal. ENT: TM's Normal. Pharynx normal. Uvula midline. Moist mucous membranes. No trismus noted. No drooling noted. No muffled voice noted. Neck: Normal inspection. Neck supple. FROM. No adenopathy. Thyroid Normal. No meningeal signs. No neck mass noted. CVS: Normal heart rate and rhythm. Heart sound normal. No murmurs noted. Pulses normal throughout. Respiratory: No respiratory distress. Painless inspiration. Breath sounds normal. No wheezes/rales/rhonchi noted. Chest nontender. No accessory muscle usage noted or decreased air movement noted. Abdomen: Soft and nontender. Bowel sounds normal in all 4 quadrants. No distention noted. No organomegaly noted. No visible injury noted. Back: No CVA tenderness. Full range of motion noted. Skin: Skin warm and dry. Normal skin color. Normal skin turgor. No rashes/lesions/lacerations noted. Extremities: Right hand/ right wrist exam: Tenderness over right radial styloid , increased pain when tucking thumb into fist and ulnarly deviate the wrist causing pain Neuro: Oriented X 3. Cranial nerve exam: II-XII are grossly intact No motor deficit. No sensory deficit. Reflexes normal. Course Course Course Narrative: assessment and plan. 25-year-old female with repetitive right hand use, head injury at work, physical exam is consistent with de quervain's injury. Ice/ NSAIDs/ thumb immobilization/follow-up with Ortho. MDM - Extremity (Nontraumatic) Imaging Data Right hand x-ray: Attestation: I personally reviewed and interpreted this imaging study as follows: Radiologist's impression: unremarkable examination Discharge Plan Discharge Clinical Impression: De Quervain's disease (tenosynovitis) Patient Disposition: Home, Self-Care Instructions: De Quervain Disease (ED) Additional Instructions: You can purchase right thumb immobilizer from any drug store, and use it while awake. Prescriptions: No Action nitrofurantoin monohyd/m-cryst [Macrobid] 100 mg capsule 100 mg PO BID 7 Days Qty: 14 RF: 0 phenazopyridine [Pyridium] 100 mg tablet 100 mg PO TID PRN (Reason: pain) Qty: 6 RF: 0 docusate sodium [Colace] 100 mg capsule 100 mg PO BID PRN (Reason: Constipation) Qty: 14 RF: 0 Chocolate Laxative 15 mg tablet,chewable 7.5 mg PO DAILY 5 Days Qty: 3 RF: 0 cyclobenzaprine 10 mg tablet 10 mg PO TID PRN (Reason: muscle spasm) Qty: 14 RF: 0 promethazine 25 mg suppository 25 mg MN Q6H PRN (Reason: nausea and vomiting) Qty: 12 RF: 0 Referrals: Roz Johnson MD [Physician] - 2 days Stand Alone Forms: Work/School Release
== END 2021-07-08 20:30 | disposition home or self-care (01) ==
PROVIDERS: Emergency Provider Emergency Medicine
DX: Z04.2 Encounter for examination and observation following work accident (principal); M65.4 Radial styloid tenosynovitis [de Quervain]; M79.641 Pain in right hand
CPT/HCPCS: 73130; 99283; 99284

== ENCOUNTER → 2021-08-02 09:45 | Outpatient (BNVA) | payer OTHER, SELFPAY | PROVIDERS: Visit Provider Orthopaedic Surgery | DX: M77.8 Other enthesopathies, not elsewhere classified (principal); R20.0 Anesthesia of skin; R20.2 Paresthesia of skin | CPT/HCPCS: 99202 ==

== ENCOUNTER 2021-08-05 22:46 | Emergency (ER) | payer OTHER, SELFPAY ==
--- NOTE | ~2021-08-05 | XR_ITS ---
EXAMINATION: XR ANKLE, LEFT CLINICAL INFORMATION: Fall and rolled ankle and unable to ambulate COMPARISON: None TECHNIQUE: AP, lateral, and mortise views of the left ankle. FINDINGS: The bones and soft tissues are normal. No fracture. Alignment is anatomic. Joint spaces are maintained. No joint effusion. XR/XR ankle LT min 3V IMPRESSION: Normal left ankle.
[2021-08-05 22:59] VITALS: BP 129/91; PULSE 89; RESP 20; TEMP 36.8; O2SAT 100; BMI 58.3
--- NOTE | 2021-08-06 01:01 | ED_ITS ---
HPI - Extremity Injury (Lower) General Chief Complaint: Extremity Injury, Lower Stated Complaint: left ankle pain Source: patient Mode of arrival: ambulatory Limitations: no limitations History of Present Illness HPI Narrative: 25-year-old female presents to ED for left ankle pain. Patient states she was going down stairs and she rolled her ankle and heard a pop in her ankle. Patient denies hitting head or any loss of consciousness Related Data Previous Rx's Medication Instructions Recorded docusate sodium 100 mg capsule 100 mg PO BID PRN #14 cap 03/14/21 (Colace) nitrofurantoin 100 mg PO BID 7 Days #14 cap 03/14/21 monohydrate/macrocrystals 100 mg capsule (Macrobid) phenazopyridine 100 mg tablet 100 mg PO TID PRN #6 tab 03/14/21 (Pyridium) sennosides 15 mg chewable tablet 7.5 mg PO DAILY 5 Days #3 tab 03/14/21 (Chocolate Laxative) cyclobenzaprine 10 mg tablet 10 mg PO TID PRN #14 tab 05/12/21 promethazine 25 mg rectal 25 mg AR Q6H PRN #12 ea 05/12/21 suppository naproxen 500 mg tablet 500 mg PO BID PRN 10 Days #20 tab 08/06/21 prednisone 20 mg tablet 40 mg PO DAILY 5 Days #10 tab 08/06/21 Allergies Allergy/AdvReac Type Severity Reaction Status Date / Time No Known Allergies Allergy Verified 08/02/21 10:10 [No Known Allergies*] Review of Systems Review of Systems: Left ankle pain Yes all other systems are reviewed and are negative PMFSH Past Medical History Medical History Costochondritis Surgical History History of appendectomy [place] teeth extracted Social History Social History (Updated 08/02/21 @ 10:10 by RADHA Swann) Alcohol intake: never Patient Tobacco Use Status: Never used Tobacco Advance Directives: No Advance Directives Information Provided: No Current occupational status: employed 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/ [employer] Physical Exam Vital Signs: Vital Signs: Last Vital Signs Temp 98.3 F 08/05/21 22:59 Pulse 89 08/05/21 22:59 Resp 20 08/05/21 22:59 BP 129/91 H 08/05/21 22:59 Pulse Ox 100 08/05/21 22:59 BMI result Body Mass Index 58.3 Const: General: cooperative, healthy appearing, comfortable, no acute distress, well developed, alert, awake and Physically active Orientation/consciousness: patient oriented x3 HENMT: Head: Yes normal to inspection, Yes No palpable skull fracture present, Yes normocephalic, Yes atraumatic and No abrasion Eyes: General: appearance normal, both eyes and all related structures Neck: Neck: Yes normal visual inspection, Yes full ROM, Yes no lymphadenopathy, Yes no meningeal signs, Yes trachea midline, Yes supple, No anterior neck swelling and No tender Chest: Chest palpation & inspection: normal inspection of the chest and normal palpation of entire chest wall Resp: Effort & Inspection: normal respiratory effort and able to speak in complete sentences Cardio: Jugular venous distension: no JVD Heart sounds: S1 normal heart sound present and S2 normal heart sound present GI: Inspection: Yes normal to inspection and No abdominal wall ecchymosis Palpation (GI): Soft to palpation, not firm, nontender, no guarding and not rigid : General: No CVA tenderness and Yes no CVA tenderness Back/Spine/Pelvis: Back: no CVA tenderness, No CVA tenderness and No back tenderness Skin: General skin exam: no rashes or lesions noted and elasticity normal Neuro: General: patient oriented x3, gait normal, no meningeal signs and CN's II-XI intact bilaterally Cranial nerves: Yes CN's II-XII intact bilaterally Extrem: General: Yes normal to inspection and Yes full ROM Ankle/foot/toe images: 1. Positive for tenderness on palpation. Vascular and neuro exam intact. Motor exam intact but limited due to pain. Alvarado negative. patient has achilles tendon function. Negative for any ecchymosis or deformity of left lower extremity. Left foot negative for any ecchymosis/tenderness/ erythema Psych: Appearance: grossly normal, well kempt and not disheveled Course Course Course Narrative: Left ankle x-ray Reevaluation(s) Reevaluation #1: Left x-ray negative for fracture. Patient placed in Daniel wrap and crutches. Patient informed pain does not improve shortly to follow with primary care provider for MRI to make sure there is no tendon/ligament injury Time: 01:10 MDM - Extremity Injury (Lower) MDM Narrative Medical decision making narrative: Ankle sprain Discharge Plan Discharge Clinical Impression: Ankle sprain and strain Patient Disposition: Home, Self-Care Instructions: Ankle Sprain (ED) Additional Instructions: X-ray came back negative for fracture. Please follow-up with primary care provider for MRI if pain does not improve. Return to ED for any ecchymosis, swelling, redness, bluish black discoloration, numbness, calf pain, swelling, coldenss, hotness, or any other concerning symptoms. Prescriptions: New naproxen 500 mg tablet 500 mg PO BID PRN (Reason: pain) 10 Days Qty: 20 RF: 0 prednisone 20 mg tablet 40 mg PO DAILY 5 Days Qty: 10 RF: 0 No Action nitrofurantoin monohyd/m-cryst [Macrobid] 100 mg capsule 100 mg PO BID 7 Days Qty: 14 RF: 0 phenazopyridine [Pyridium] 100 mg tablet 100 mg PO TID PRN (Reason: pain) Qty: 6 RF: 0 docusate sodium [Colace] 100 mg capsule 100 mg PO BID PRN (Reason: Constipation) Qty: 14 RF: 0 Chocolate Laxative 15 mg tablet,chewable 7.5 mg PO DAILY 5 Days Qty: 3 RF: 0 cyclobenzaprine 10 mg tablet 10 mg PO TID PRN (Reason: muscle spasm) Qty: 14 RF: 0 promethazine 25 mg suppository 25 mg AR Q6H PRN (Reason: nausea and vomiting) Qty: 12 RF: 0 Stand Alone Forms: Work/School Release Interventions: ED Discharge Assessment Last Done: 08/06/21 01:24 Discharge Date/Time: 08/06/21 01:25 Print Language: Swedish
[2021-08-06] MEDS: Ibuprofen 800 MG TABLET PO (01:10)
[2021-08-06] MEDS: predniSONE 20 MG TABLET 60 MG PO (01:11)
== END 2021-08-06 01:25 | disposition home or self-care (01) ==
PROVIDERS: Emergency Provider Emergency Medicine
DX: S93.402A Sprain of unspecified ligament of left ankle, initial encounter (principal); W10.8XXA Fall (on) (from) other stairs and steps, initial encounter; Y93.89 Activity, other specified; Y92.018 Other place in single-family (private) house as the place of occurrence of the external cause; Y99.9 Unspecified external cause status
CPT/HCPCS: 73610; 99283

== ENCOUNTER 2022-03-02 20:20 | Emergency (ER) | payer OTHER, SELFPAY ==
[2022-03-02 20:45] VITALS: BP 154/95; PULSE 93; RESP 16; TEMP 36.9; O2SAT 99; BMI 29.3
[2022-03-02 21:04] LABS: MANUAL DIFF FLAG NO
[2022-03-02 21:06] LABS: Basophils Percent Auto 0.4 % (0-2); Eosinophils Absolute Auto 0.3 X10*3/uL (0.0-0.4); Eosinophils Percent Auto 2.5 % (0-4); Hematocrit 44.3 % (37.0-47.0); Hemoglobin 14.8 g/dl (12.0-16.0); Imm Gran Abs Auto 0.02 X10*3/uL (0.00-0.03); Imm Gran Pct Auto 0.2 % (0.0-0.4); Lymphocytes Absolute Auto 4.9 X10*3/uL (1.2-4.9); Lymphocytes Percent Auto 48.2 % (20-40); Mean Corpuscular HGB Conc 33.4 g/dl (31.0-35.0); Mean Corpuscular Hemoglobin 28.5 pg (27.0-33.0); Mean Corpuscular Volume 85.2 fL (80.0-98.0); Mean Platelet Volume 9.6 fL (9.4-12.3); Monocytes Absolute Auto 0.5 X10*3/uL (0.1-1.2); Monocytes Percent Auto 4.5 % (2-11); Neutrophils Absolute Auto 4.5 x10*3/uL (2.0-8.3); Neutrophils Percent Auto 44.2 % (45-73); Platelet Count 351 X10*3/uL (160-400); Red Cell Distribution Width 12.4 % (11.0-16.0); White Blood Count 10.2 X10*3/uL (4.8-10.8)
[2022-03-02 21:13] LABS: COVID-19 Test Negative (Negative)
[2022-03-02 21:19] LABS: Alanine Aminotransferase 20 U/L (0-31); Albumin Level 4.2 g/dL (3.5-5.0); Alkaline Phosphatase 96 U/L (39-117); Anion Gap 13 (12-20); Aspartate Amino Transferase 17 U/L (5-31); Bilirubin Direct 0.2 mg/dL (0.0-0.5); Bilirubin Total 0.5 mg/dL (0.0-1.0); Blood Urea Nitrogen 11 mg/dL (9-16); Carbon Dioxide 26 mmol/L (22-29); Chloride 105 mmol/L (96-108); Creatinine Clr Calc Pharmacy 97.7; Estimated Glomerular Filt Rate > 60; Glucose Random 89 mg/dL (60-115); Lipase 27 U/L (8-78); Potassium 3.9 mmol/L (3.3-5.1); Sodium 140 mmol/L (135-145); Total Protein 7.2 g/dL (6.5-8.0)
[2022-03-02 23:15] VITALS: BP 135/89; PULSE 82; RESP 16; TEMP 37.3; O2SAT 100
[2022-03-02 23:31] LABS: Appearance Urine CLEAR; Color Urine YELLOW; Glucose Urine UA NEG (NEG); Leukocyte Esterase Urine NEG (NEG); Nitrite Urine NEG (NEG); Urine Blood NEG (NEG); Urine Ketones NEG (NEG); Urine Protein NEG (NEG-TRACE)
--- NOTE | 2022-03-03 00:15 | ED_ITS ---
HPI - Nausea/Vomiting/Diarrhea General Chief complaint: Nausea/Vomiting/Diarrhea Stated complaint: Nauseas Time Seen by Provider: 03/03/22 00:15 Source: patient Mode of arrival: ambulatory Limitations: no limitations History of Present Illness HPI Narrative: 26-year-old female no known pmhx A0 presenting to the emergency department with complaints of nausea since Saturday, 3 days ago. Patient tells me that she has had nausea and poor appetite since this day, she tells me she has not been eating or drinking much because of nausea. She tells me she is currently trying to get . She reports that she has been keeping down fluids however having a hard time eating solids/food because it causes her nausea. She tells me when she does not eat she feels dizzy, confused, fatigued. Tells me this is never happened to her before. Patient tells me she took a test on Saturday which is negative. She denies any fevers, chills, chest pain, shortness of breath, vomiting, diarrhea, abdominal pain, headache, dizziness, headaches or vision changes at this time. MD elicited complaint: nausea Onset (ago): day(s) (3) Associated nausea: Yes Associated abdominal pain: No Location of pain: none Pain consistency: intermittent Severity: moderate Exacerbating factors: other (not eating ) Relieving factors: none Related Data Previous Rx's Medication Instructions Recorded docusate sodium 100 mg capsule 100 mg PO BID PRN Constipation #14 03/14/21 (Colace) caps nitrofurantoin 100 mg PO BID 7 days #14 caps 03/14/21 monohydrate/macrocrystals 100 mg capsule (Macrobid) phenazopyridine 100 mg tablet 100 mg PO TID PRN pain 6 doses #6 03/14/21 (Pyridium) tabs sennosides 15 mg chewable tablet 7.5 mg PO DAILY Constipation 5 03/14/21 (Chocolate Laxative) days #3 tabs cyclobenzaprine 10 mg tablet 10 mg PO TID PRN muscle spasm #14 05/12/21 tabs promethazine 25 mg rectal 25 mg OR Q6H PRN nausea and 05/12/21 suppository vomiting #12 ea naproxen 500 mg tablet 500 mg PO BID PRN pain 10 days #20 01/09/22 tabs prednisone 20 mg tablet 40 mg PO DAILY 5 days #10 tabs 08/06/21 ondansetron 4 mg disintegrating 4 mg PO ONCE PRN nausea and 03/03/22 tablet vomiting #10 tabs Allergies Allergy/AdvReac Type Severity Reaction Status Date / Time No Known Allergies Allergy Verified 03/02/22 20:44 [No Known Allergies*] Review of Systems Review of Systems: Constitutional : No Weight loss, No Fever, No Chills, + Fatigue, + Malaise ENT/Mouth : No sore throat, No Rhinorrhea Eyes: No Eye Pain, No Swelling, No Redness Cardiovascular : No Chest Pain, No SOB, No Dyspnea on Exertion, No Orthopnea, No Edema, No Palpitations Respiratory : No Cough, No Sputum, No Wheezing Gastrointestinal : + Nausea, No Vomiting, No Diarrhea, No Constipation, No abdominal Pain, No Hematochezia, No Melena Genitourinary : No Dysuria, No Urinary Frequency, No Hematuria, Musculoskeletal : No joint pain, No Myalgias, No Joint Swelling Skin : No Skin Lesions, No rash Neuro : + Weakness, No Numbness, + Dizziness, No Headache All other systems reviewed and are negative Yes all other systems are reviewed and are negative Gastrointestinal: Gastrointestinal: Reports nausea PMFSH Past Medical History Attestation statement: The following information was validated with the patient. 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 Oriented X3.? No acute distress.? Head: Normocephalic, atraumatic, no step-offs or deformities Eyes: Pupils equal, round and reactive to light.? ENT: Pharynx normal.?Moist mucus membranes Neck: Normal inspection.? Neck supple.? CVS: Normal heart rate and rhythm.? Pulses normal.? Respiratory: No respiratory distress.? Breath sounds normal.? Abdomen: Soft and nontender.? Negative Donnelly's, Rovsing, obturator, psoas and McBurney's point. Skin: Skin warm and dry.? Normal skin color.? Normal skin turgor.? Extremities: No lower extremity edema.? No calf ttp. 5/5 strength to bilateral upper and lower extremities Neuro: Oriented X 3.? No motor deficit.? No sensory deficit. CN 2-12 intact. Steady tandem gait, normal finger to nose. Course Reevaluation(s) Reevaluation #1: CBC within normal limits. Chemistry with no acute electrolyte abnormalities requiring intervention. HCG by serum negative. Urine clean. COVID negative. Patient currently getting IV fluids Time: 00:41 Reevaluation #2: Reports improvement after fluids and Zofran. Now reports she is having some reflux. Will give and Maalox. Time: 01:15 Reevaluation #3: Relief with medications. At this time patient will be discharged home with p.o. Zofran. Advised her to start vitamins if she is planning to get . At this time I feel comfortable discharge home with prompt PCP follow-up. Educated on worrisome signs and symptoms and when to return. Nausea likely secondary to viral infection. Time: 01:46 MDM - Nausea/Vomiting/Diarrhea [facility] Narrative Medical decision making narrative: 0030 26-year-old female presents with nausea x3 days. Currently trying to get . Reports poor p.o. intake over the past 3 days secondary to nausea. Denies abdominal pain, fevers, chills, changes in urinary habits. Physical examination benign. Likely viral. No pain with palpation of abdomen, low suspicion for any intra- abdominal processes. Neuro exam non focal unlikey ICH or posterior stroke Plan at this time is to obtain labs, urine, COVID. Will give Zofran and fluids. Medical Records Attestation: I reviewed the patient's medical records. Lab Data Attestation: I reviewed the patient's lab results. Result diagrams: 03/02/22 20:50 03/02/22 20:50 Labs: Lab Results 03/02/22 03/02/22 03/02/22 Range/Units 20:50 20:50 20:50 WBC 10.2 (4.8-10.8) X10*3/uL RBC 5.20 (4.20-5.50) X10*6/uL Hgb 14.8 (12.0-16.0) g/dl Hct 44.3 (37.0-47.0) % MCV 85.2 (80.0-98.0) fL MCH 28.5 (27.0-33.0) pg MCHC 33.4 (31.0-35.0) g/dl RDW 12.4 (11.0-16.0) % Plt Count 351 (160-400) X10*3/uL MPV 9.6 (9.4-12.3) fL Immature Gran % (Auto) 0.2 (0.0-0.4) % Neut % (Auto) 44.2 L (45-73) % Lymph % (Auto) 48.2 H (20-40) % [place] % (Auto) 4.5 (2-11) % Eos % (Auto) 2.5 (0-4) % Baso % (Auto) 0.4 (0-2) % Lymph # (Auto) 4.9 (1.2-4.9) X10*3/uL [place] # (Auto) 0.5 (0.1-1.2) X10*3/uL Eos # (Auto) 0.3 (0.0-0.4) X10*3/uL Baso # (Auto) 0.0 (0.0-0.2) X10*3/uL Abs Immat Gran (auto) 0.02 (0.00-0.03) X10*3/uL Absolute Neuts (auto) 4.5 (2.0-8.3) x10*3/uL Absolute Nucleated RBC 0.000 (0.0-0.012) X10*3/uL Nucleated RBC % (auto) 0.0 (0.0-0.2) /100WBC Sodium 140 (135-145) mmol/L Potassium 3.9 (3.3-5.1) mmol/L Chloride 105 (96-108) mmol/L Carbon Dioxide 26 (22-29) mmol/L Anion Gap 13 (12-20) BUN 11 (9-16) mg/dL Creatinine 0.79 (0.5-1.4) mg/dL Estim Creat Clear Calc 97.7 Estimated GFR > 60 Random Glucose 89 (60-115) mg/dL Calcium 9.0 D (8.4-10.2) mg/dL Total Bilirubin 0.5 (0.0-1.0) mg/dL Direct Bilirubin 0.2 (0.0-0.5) mg/dL AST 17 (5-31) U/L ALT 20 (0-31) U/L Alkaline Phosphatase 96 (39-117) U/L Total Protein 7.2 (6.5-8.0) g/dL Albumin 4.2 (3.5-5.0) g/dL Lipase 27 (8-78) U/L Beta HCG, Quant < 2 mIU/mL Urine Color Urine Appearance Urine pH (5.0-8.0) Ur Specific [place] (1.005-1.025) Urine Protein (NEG-TRACE) MG/DL Urine Glucose (UA) (NEG) MG/DL Urine Ketones (NEG) MG/DL Urine Blood (NEG) Urine Nitrite (NEG) Ur Leukocyte Esterase (NEG) COVID-19 ([place]) Negative (Negative) COVID-19 Clin Com See Note 03/02/22 Range/Units 23:24 WBC (4.8-10.8) X10*3/uL RBC (4.20-5.50) X10*6/uL Hgb (12.0-16.0) g/dl Hct (37.0-47.0) % MCV (80.0-98.0) fL MCH (27.0-33.0) pg MCHC (31.0-35.0) g/dl RDW (11.0-16.0) % Plt Count (160-400) X10*3/uL MPV (9.4-12.3) fL Immature Gran % (Auto) (0.0-0.4) % Neut % (Auto) (45-73) % Lymph % (Auto) (20-40) % [place] % (Auto) (2-11) % Eos % (Auto) (0-4) % Baso % (Auto) (0-2) % Lymph # (Auto) (1.2-4.9) X10*3/uL [place] # (Auto) (0.1-1.2) X10*3/uL Eos # (Auto) (0.0-0.4) X10*3/uL Baso # (Auto) (0.0-0.2) X10*3/uL Abs Immat Gran (auto) (0.00-0.03) X10*3/uL Absolute Neuts (auto) (2.0-8.3) x10*3/uL Absolute Nucleated RBC (0.0-0.012) X10*3/uL Nucleated RBC % (auto) (0.0-0.2) /100WBC Sodium (135-145) mmol/L Potassium (3.3-5.1) mmol/L Chloride (96-108) mmol/L Carbon Dioxide (22-29) mmol/L Anion Gap (12-20) BUN (9-16) mg/dL Creatinine (0.5-1.4) mg/dL Estim Creat Clear Calc Estimated GFR Random Glucose (60-115) mg/dL Calcium (8.4-10.2) mg/dL Total Bilirubin (0.0-1.0) mg/dL Direct Bilirubin (0.0-0.5) mg/dL AST (5-31) U/L ALT (0-31) U/L Alkaline Phosphatase (39-117) U/L Total Protein (6.5-8.0) g/dL Albumin (3.5-5.0) g/dL Lipase (8-78) U/L Beta HCG, Quant mIU/mL Urine Color YELLOW Urine Appearance CLEAR Urine pH 7.0 (5.0-8.0) Ur Specific [place] 1.020 (1.005-1.025) Urine Protein NEG (NEG-TRACE) MG/DL Urine Glucose (UA) NEG (NEG) MG/DL Urine Ketones NEG (NEG) MG/DL Urine Blood NEG (NEG) Urine Nitrite NEG (NEG) Ur Leukocyte Esterase NEG (NEG) COVID-19 ([place]) (Negative) COVID-19 Clin Com Critical Care Time Critical Care Time Critical Care Time: No Discharge Plan Discharge Clinical Impression: Nausea, Viral infection Patient Disposition: Home, Self-Care Instructions: Acute Nausea and Vomiting (ED), Viral Syndrome (ED) Additional Instructions: Take your medications as prescribed. If you were prescribed antibiotics today, it is important that you take your medication to their entirety, do not skip any doses, do not finish them early. Follow-up with your primary care provider this week. Return to the emergency department with new or worsening symptoms. Such as fevers, chills, chest pain, shortness of breath, nausea, vomiting, dizziness, headache, vision changes, lethargy In case of emergency call 911 Please drink plenty of fluids to prevent dehydration. If you are planning to get you should start taking vitamins [id number]. Ladi has been sent to her pharmacy, please take this as prescribed, do not take more than the prescribed dose as this can cause cardiac arrhythmias. Prescriptions: New ondansetron 4 mg tablet,disintegrating 4 mg PO ONCE PRN (Reason: nausea and vomiting) Qty: 10 0RF No Action nitrofurantoin monohyd/m-cryst [Macrobid] 100 mg capsule 100 mg PO BID 7 Days Qty: 14 0RF Rx Instructions: must administer with a meal/food phenazopyridine [Pyridium] 100 mg tablet 100 mg PO TID PRN (Reason: pain) Qty: 6 0RF docusate sodium [Colace] 100 mg capsule 100 mg PO BID PRN (Reason: Constipation) Qty: 14 0RF Chocolate Laxative 15 mg tablet,chewable 7.5 mg PO DAILY 5 Days Qty: 3 0RF cyclobenzaprine 10 mg tablet 10 mg PO TID PRN (Reason: muscle spasm) Qty: 14 0RF promethazine 25 mg suppository 25 mg OR Q6H PRN (Reason: nausea and vomiting) Qty: 12 0RF naproxen 500 mg tablet 500 mg PO BID PRN (Reason: pain) 10 Days Qty: 20 0RF prednisone 20 mg tablet 40 mg PO DAILY 5 Days Qty: 10 0RF Referrals: Physician,None [Primary Care Provider] - 2 days Stand Alone Forms: Work/School Release
[2022-03-03 00:37] LABS: HCG Quantitative < 2 mIU/mL
[2022-03-03] MEDS: 0.9 % Sodium Chloride 1,000 ML 999 ML IV (00:48)
[2022-03-03] MEDS: ondansetron HCL 4 MG/2 ML VIAL IVPUSH (00:49)
--- NOTE | 2022-03-03 00:50 | PC.NURSE ---
pt a&o, no chest pain. pt reporting n/v and dizziness. This started saturday. Iv and medication given per Sep.
[2022-03-03 02:00] VITALS: BP 134/96; PULSE 75; RESP 16; TEMP 36.8; O2SAT 98
[2022-03-03] MEDS: Magnesium Hydrox/Alum Hydrox 30 ML ORAL.SUSP PO (02:04)
[2022-03-03] MEDS: PHENobarb/Hyoscy/Atropine/Scop 10 ML ELIXIR PO (02:04)
--- NOTE | 2022-03-03 02:08 | PC.NURSE ---
pt a&o, no sob or chest pain at discharge. medicated per Sep. reviewed discharge instructions with pt . pt verbalized understanding.
== END 2022-03-03 02:20 | disposition home or self-care (01) ==
PROVIDERS: Physician Assistant; Emergency Provider Student in an Organized Health Care Education/Training Program
DX: B34.9 Viral infection, unspecified (principal); R11.2 Nausea with vomiting, unspecified; R19.7 Diarrhea, unspecified; Z20.822 Contact with and (suspected) exposure to COVID-19; Z79.899 Other long term (current) drug therapy
CPT/HCPCS: 36415; 80048; 80076; 81003; 83690; 84702; 85025; 87635; 96374; 99284; J2405

== ENCOUNTER 2022-03-12 11:17 | Emergency (ER) | payer OTHER, SELFPAY ==
--- NOTE | ~2022-03-12 | XR_ITS ---
EXAMINATION: XR CHEST CLINICAL INFORMATION: Chest pain COMPARISON: Chest x-ray 05/06/2021 TECHNIQUE: Frontal portable view of the chest was obtained. 6:13 PM FINDINGS: No significant abnormality is noted involving the heart, lungs, mediastinum, bony thorax or soft tissues. XR/XR chest 1V IMPRESSION: Unremarkable examination.
[2022-03-12 11:23] VITALS: BP 140/101; PULSE 88; RESP 19; TEMP 36.6; O2SAT 98; BMI 28.3
--- NOTE | 2022-03-12 11:28 | ECG_ITS ---
Test Reason : chest pain Blood Pressure : / mmHG Vent. Rate : 088 BPM Atrial Rate : 088 BPM P-R Int : 148 ms QRS Dur : 098 ms QT Int : 362 ms P-R-T Axes : 036 045 028 degrees QTc Int : 438 ms Normal sinus rhythm with sinus arrhythmia Normal ECG When compared with ECG of 12-MAY-2021 15:03, Heart rate has decreased Referred By: Generic ED Physician Electronically Signed By:STEPHANIE HAGER
--- NOTE | 2022-03-12 18:08 | ED_ITS ---
HPI - General Adult General Chief complaint: General Medical Stated complaint: chest pain, cant eat, disoriented Time Seen by Provider: 03/12/22 18:05 Source: patient Mode of arrival: ambulatory Limitations: no limitations History of Present Illness HPI narrative: 26-year-old female came in for evaluation of chest pain and headache. Patient's symptoms started about a week ago with nausea 1st now the symptoms is progressing to chest pain in the mid chest radiating to the left shoulder, generalized weakness, headache, lack of concentration. Chest pain described as constant mid chest pain radiating to the left shoulder pain is worsening with taking a deep breath or moving the left arm. No sick contact, no recent travel, no lower extremity swelling or tenderness, no prolonged immobilization. Related Data Previous Rx's Medication Instructions Recorded docusate sodium 100 mg capsule 100 mg PO BID PRN Constipation #14 03/14/21 (Colace) caps nitrofurantoin 100 mg PO BID 7 days #14 caps 03/14/21 monohydrate/macrocrystals 100 mg capsule (Macrobid) phenazopyridine 100 mg tablet 100 mg PO TID PRN pain 6 doses #6 03/14/21 (Pyridium) tabs sennosides 15 mg chewable tablet 7.5 mg PO DAILY Constipation 5 03/14/21 (Chocolate Laxative) days #3 tabs cyclobenzaprine 10 mg tablet 10 mg PO TID PRN muscle spasm #14 05/12/21 tabs promethazine 25 mg rectal 25 mg FL Q6H PRN nausea and 05/12/21 suppository vomiting #12 ea naproxen 500 mg tablet 500 mg PO BID PRN pain 10 days #20 08/06/21 tabs prednisone 20 mg tablet 40 mg PO DAILY 5 days #10 tabs 08/06/21 ondansetron 4 mg disintegrating 4 mg PO ONCE PRN nausea and 03/03/22 tablet vomiting #10 tabs Allergies Allergy/AdvReac Type Severity Reaction Status Date / Time No Known Allergies Allergy Verified 03/02/22 20:44 [No Known Allergies*] Review of Systems Review of Systems: All other systems are reviewed and are negative Constitutional: Reports as per HPI and Reports no additional constitutional complaints Eyes: Reports as per HPI and Reports no additional eye complaints Reports system reviewed and no additional complaints, except as documented Cardiovascular: Reports as per HPI and Reports no additional cardiovascular c omplaints Respiratory: Reports as per HPI and Reports no additional respiratory complaints Gastrointestinal: Reports as per HPI and Reports no additional gastrointestinal complaints Genitourinary: Reports no additional female genitourinary complaints Musculoskeletal: Reports no additional musculoskeletal complaints Skin/Breast: Reports system reviewed and no additional complaints, except as docu Psychiatric: Reports no additional psychiatric complaints Endocrine: Reports no additional endocrine complaints Hematologic/Lymphatic: Reports no additional hematologic/lymphatic complaints Allergic/Immunologic: Reports no additional allergic/immunologic complaints Reports system reviewed and no additional complaints, except as documented and Reports Abnormal speech present [facility] Past Medical History Medical History Costochondritis Surgical History History of appendectomy [place] teeth extracted Social History Social History Alcohol intake: never Patient Tobacco Use Status: Never used Tobacco Use of substances other than those prescribed or required for medical reasons: No Advance Directives: No Advance Directives Information Provided: No Current occupational status: employed 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 Blood pressure baylee l. Heart rate normal. Respiration rate normal. Temperature normal. Oxygen saturation normal. Appearance: Alert. Oriented X3. No acute distress. Head: Normal external exam. Normocephalic. Atraumatic. No Interiano signs noted. No raccoon eyes noted Eyes: PERRLA. EOMI. Conjunctiva and sclera normal. Eyelids normal. ENT: TM's Normal. Pharynx normal. Uvula midline. Moist mucous membranes. No trismus noted. No drooling noted. No muffled voice noted. Neck: Normal inspection. Neck supple. FROM. No adenopathy. Thyroid Normal. No meningeal signs. No neck mass noted. CVS: Normal heart rate and rhythm. Heart sound normal. No murmurs noted. Pulses normal throughout. Respiratory: No respiratory distress. Painless inspiration. Breath sounds normal. No wheezes/rales/rhonchi noted. Chest tenderness along mid sternal line with palpation, no chest or rash or lesions.. No accessory muscle usage noted or decreased air movement noted. Abdomen: Soft and nontender. Bowel sounds normal in all 4 quadrants. No distention noted. No organomegaly noted. No visible injury noted. Back: No CVA tenderness. Full range of motion noted. Skin: Skin warm and dry. Normal skin color. Normal skin turgor. No rashes/lesions/lacerations noted. Extremities: No lower extremity edema. Extremities exhibit normal range of motion. Extremities nontender. Neuro: Oriented X 3. Cranial nerve exam: II-XII are grossly intact No motor deficit. No sensory deficit. Reflexes normal. Course Course Course Narrative: Assessment and plan. 26-year-old female presented with chest pain, physical exam/lab finding are consistent with costochondritis. Patient was instructed to take ibuprofen every 6 hours p.r.n.. Medical Decision Making Lab Data Lab results reviewed: Yes I reviewed the patient's lab results. Result diagrams: 03/12/22 18:38 03/12/22 18:38 Labs: Lab Results 03/12/22 03/12/22 03/12/22 Range/Units 18:38 18:38 18:38 WBC 7.1 (4.8-10.8) X10*3/uL RBC 5.15 (4.20-5.50) X10*6/uL Hgb 14.7 (12.0-16.0) g/dl Hct 44.5 (37.0-47.0) % MCV 86.4 (80.0-98.0) fL MCH 28.5 (27.0-33.0) pg MCHC 33.0 (31.0-35.0) g/dl RDW 12.2 (11.0-16.0) % Plt Count 304 (160-400) X10*3/uL MPV 9.4 (9.4-12.3) fL Immature Gran % (Auto) 0.3 (0.0-0.4) % Neut % (Auto) 42.4 L (45-73) % Lymph % (Auto) 49.0 H (20-40) % [place] % (Auto) 4.7 (2-11) % Eos % (Auto) 3.2 (0-4) % Baso % (Auto) 0.4 (0-2) % Lymph # (Auto) 3.5 (1.2-4.9) X10*3/uL [place] # (Auto) 0.3 (0.1-1.2) X10*3/uL Eos # (Auto) 0.2 (0.0-0.4) X10*3/uL Baso # (Auto) 0.0 (0.0-0.2) X10*3/uL Abs Immat Gran (auto) 0.02 (0.00-0.03) X10*3/uL Absolute Neuts (auto) 3.0 (2.0-8.3) x10*3/uL Absolute Nucleated RBC 0.000 (0.0-0.012) X10*3/uL Nucleated RBC % (auto) 0.0 (0.0-0.2) /100WBC D-Dimer High Sensitivty NG/ML Sodium 139 (135-145) mmol/L Potassium 4.1 (3.3-5.1) mmol/L Chloride 103 (96-108) mmol/L Carbon Dioxide 26 (22-29) mmol/L Anion Gap 14 (12-20) BUN 9 (9-16) mg/dL Creatinine 0.70 (0.5-1.4) mg/dL Estim Creat Clear Calc 108.4 Estimated GFR > 60 Random Glucose 87 (60-115) mg/dL Calcium 9.2 (8.4-10.2) mg/dL Total Bilirubin 0.6 (0.0-1.0) mg/dL Direct Bilirubin 0.2 (0.0-0.5) mg/dL AST 18 (5-31) U/L ALT 22 (0-31) U/L Alkaline Phosphatase 88 (39-117) U/L Troponin I High Sens < 3.5 (<3.5-17.0) ng/L Total Protein 7.0 (6.5-8.0) g/dL Albumin 4.2 (3.5-5.0) g/dL Lipase 14 (8-78) U/L Urine Color Urine Appearance Urine pH (5.0-8.0) Ur Specific [place] (1.005-1.025) Urine Protein (NEG-TRACE) MG/DL Urine Glucose (UA) (NEG) MG/DL Urine Ketones (NEG) MG/DL Urine Blood (NEG) Urine Nitrite (NEG) Ur Leukocyte Esterase (Negative) Urine Test (NEGATIVE) COVID-19 ([facility]) (Negative) COVID-19 Clin Com S. pyogenes GrpA ALFONZO (Negative) 03/12/22 03/12/22 03/12/22 Range/Units 18:38 18:38 18:48 WBC (4.8-10.8) X10*3/uL RBC (4.20-5.50) X10*6/uL Hgb (12.0-16.0) g/dl Hct (37.0-47.0) % MCV (80.0-98.0) fL MCH (27.0-33.0) pg MCHC (31.0-35.0) g/dl RDW (11.0-16.0) % Plt Count (160-400) X10*3/uL MPV (9.4-12.3) fL Immature Gran % (Auto) (0.0-0.4) % Neut % (Auto) (45-73) % Lymph % (Auto) (20-40) % [place] % (Auto) (2-11) % Eos % (Auto) (0-4) % Baso % (Auto) (0-2) % Lymph # (Auto) (1.2-4.9) X10*3/uL [place] # (Auto) (0.1-1.2) X10*3/uL Eos # (Auto) (0.0-0.4) X10*3/uL Baso # (Auto) (0.0-0.2) X10*3/uL Abs Immat Gran (auto) (0.00-0.03) X10*3/uL Absolute Neuts (auto) (2.0-8.3) x10*3/uL Absolute Nucleated RBC (0.0-0.012) X10*3/uL Nucleated RBC % (auto) (0.0-0.2) /100WBC D-Dimer High Sensitivty < 150 NG/ML Sodium (135-145) mmol/L Potassium (3.3-5.1) mmol/L Chloride (96-108) mmol/L Carbon Dioxide (22-29) mmol/L Anion Gap (12-20) BUN (9-16) mg/dL Creatinine (0.5-1.4) mg/dL Estim Creat Clear Calc Estimated GFR Random Glucose (60-115) mg/dL Calcium (8.4-10.2) mg/dL Total Bilirubin (0.0-1.0) mg/dL Direct Bilirubin (0.0-0.5) mg/dL AST (5-31) U/L ALT (0-31) U/L Alkaline Phosphatase (39-117) U/L Troponin I High Sens (<3.5-17.0) ng/L Total Protein (6.5-8.0) g/dL Albumin (3.5-5.0) g/dL Lipase (8-78) U/L Urine Color YELLOW Urine Appearance CLEAR Urine pH 6.0 (5.0-8.0) Ur Specific [place] 1.020 (1.005-1.025) Urine Protein Negative (NEG-TRACE) MG/DL Urine Glucose (UA) Negative (NEG) MG/DL Urine Ketones Negative (NEG) MG/DL Urine Blood Negative (NEG) Urine Nitrite Negative (NEG) Ur Leukocyte Esterase Negative (Negative) Urine Test (NEGATIVE) COVID-19 ([facility]) (Negative) COVID-19 Clin Com S. pyogenes GrpA ALFONZO Invalid (Negative) 03/12/22 03/12/22 Range/Units 18:48 19:59 WBC (4.8-10.8) X10*3/uL RBC (4.20-5.50) X10*6/uL Hgb (12.0-16.0) g/dl Hct (37.0-47.0) % MCV (80.0-98.0) fL MCH (27.0-33.0) pg MCHC (31.0-35.0) g/dl RDW (11.0-16.0) % Plt Count (160-400) X10*3/uL MPV (9.4-12.3) fL Immature Gran % (Auto) (0.0-0.4) % Neut % (Auto) (45-73) % Lymph % (Auto) (20-40) % [place] % (Auto) (2-11) % Eos % (Auto) (0-4) % Baso % (Auto) (0-2) % Lymph # (Auto) (1.2-4.9) X10*3/uL [place] # (Auto) (0.1-1.2) X10*3/uL Eos # (Auto) (0.0-0.4) X10*3/uL Baso # (Auto) (0.0-0.2) X10*3/uL Abs Immat Gran (auto) (0.00-0.03) X10*3/uL Absolute Neuts (auto) (2.0-8.3) x10*3/uL Absolute Nucleated RBC (0.0-0.012) X10*3/uL Nucleated RBC % (auto) (0.0-0.2) /100WBC D-Dimer High Sensitivty NG/ML Sodium (135-145) mmol/L Potassium (3.3-5.1) mmol/L Chloride (96-108) mmol/L Carbon Dioxide (22-29) mmol/L Anion Gap (12-20) BUN (9-16) mg/dL Creatinine (0.5-1.4) mg/dL Estim Creat Clear Calc Estimated GFR Random Glucose (60-115) mg/dL Calcium (8.4-10.2) mg/dL Total Bilirubin (0.0-1.0) mg/dL Direct Bilirubin (0.0-0.5) mg/dL AST (5-31) U/L ALT (0-31) U/L Alkaline Phosphatase (39-117) U/L Troponin I High Sens (<3.5-17.0) ng/L Total Protein (6.5-8.0) g/dL Albumin (3.5-5.0) g/dL Lipase (8-78) U/L Urine Color Urine Appearance Urine pH (5.0-8.0) Ur Specific [place] (1.005-1.025) Urine Protein (NEG-TRACE) MG/DL Urine Glucose (UA) (NEG) MG/DL Urine Ketones (NEG) MG/DL Urine Blood (NEG) Urine Nitrite (NEG) Ur Leukocyte Esterase (Negative) Urine Test NEGATIVE (NEGATIVE) COVID-19 ([facility]) Negative (Negative) COVID-19 Clin Com See Note S. pyogenes GrpA ALFONZO (Negative) Imaging Data Chest x-ray: Attestation: I personally reviewed and interpreted this imaging study as follows: Radiologist's impression: Unremarkable examination. ECG Data Attestation: I personally reviewed and interpreted this ECG as follows: Interpretation: Normal sinus rhythm at 88 beats per minute, normal intervals, normal axis deviation, no ST-T changes, no change from previous EKG. Discharge Plan Discharge Clinical Impression: Acute costochondritis Patient Disposition: Home, Self-Care Instructions: Costochondritis (ED) Additional Instructions: Take ibuprofen 200 mg tablet every 6 hours if needed for pain, do not take it on empty stomach. Prescriptions: No Action nitrofurantoin monohyd/m-cryst [Macrobid] 100 mg capsule 100 mg PO BID 7 Days Qty: 14 0RF Rx Instructions: must administer with a meal/food phenazopyridine [Pyridium] 100 mg tablet 100 mg PO TID PRN (Reason: pain) Qty: 6 0RF docusate sodium [Colace] 100 mg capsule 100 mg PO BID PRN (Reason: Constipation) Qty: 14 0RF Chocolate Laxative 15 mg tablet,chewable 7.5 mg PO DAILY 5 Days Qty: 3 0RF cyclobenzaprine 10 mg tablet 10 mg PO TID PRN (Reason: muscle spasm) Qty: 14 0RF promethazine 25 mg suppository 25 mg FL Q6H PRN (Reason: nausea and vomiting) Qty: 12 0RF naproxen 500 mg tablet 500 mg PO BID PRN (Reason: pain) 10 Days Qty: 20 0RF prednisone 20 mg tablet 40 mg PO DAILY 5 Days Qty: 10 0RF ondansetron 4 mg tablet,disintegrating 4 mg PO ONCE PRN (Reason: nausea and vomiting) Qty: 10 0RF Referrals: Physician,None [Primary Care Provider] - Stand Alone Forms: Work/School Release
[2022-03-12] MEDS: Magnesium Hydrox/Alum Hydrox 30 ML ORAL.SUSP PO (18:45)
[2022-03-12] MEDS: Omeprazole 40 MG CAPSULE.DR PO (18:45)
[2022-03-12] MEDS: Ibuprofen 600 MG TABLET PO (18:45)
[2022-03-12 18:50] LABS: MANUAL DIFF FLAG NO
[2022-03-12 18:52] LABS: Basophils Percent Auto 0.4 % (0-2); Eosinophils Absolute Auto 0.2 X10*3/uL (0.0-0.4); Eosinophils Percent Auto 3.2 % (0-4); Hematocrit 44.5 % (37.0-47.0); Hemoglobin 14.7 g/dl (12.0-16.0); Imm Gran Abs Auto 0.02 X10*3/uL (0.00-0.03); Imm Gran Pct Auto 0.3 % (0.0-0.4); Lymphocytes Absolute Auto 3.5 X10*3/uL (1.2-4.9); Mean Corpuscular Hemoglobin 28.5 pg (27.0-33.0); Mean Corpuscular Volume 86.4 fL (80.0-98.0); Mean Platelet Volume 9.4 fL (9.4-12.3); Monocytes Absolute Auto 0.3 X10*3/uL (0.1-1.2); Monocytes Percent Auto 4.7 % (2-11); Neutrophils Percent Auto 42.4 % (45-73); Platelet Count 304 X10*3/uL (160-400); Red Blood Count 5.15 X10*6/uL (4.20-5.50); Red Cell Distribution Width 12.2 % (11.0-16.0); White Blood Count 7.1 X10*3/uL (4.8-10.8)
[2022-03-12 18:58] LABS: Appearance Urine CLEAR; Color Urine YELLOW; Glucose Urine UA Negative (NEG); Leukocyte Esterase Urine Negative (Negative); Nitrite Urine Negative (NEG); Urine Blood Negative (NEG); Urine Ketones Negative (NEG); Urine Protein Negative (NEG-TRACE)
[2022-03-12 18:59] LABS: UPreg QC Valid YES; Urine Pregnancy NEGATIVE (NEGATIVE)
[2022-03-12 19:08] LABS: D Dimer High Sensitivity < 150 NG/ML
--- NOTE | 2022-03-12 19:11 | PC.NURSE ---
THIS NURSE HAS NOW ASSUMED CARE OF PT
[2022-03-12 19:14] LABS: Alanine Aminotransferase 22 U/L (0-31); Albumin Level 4.2 g/dL (3.5-5.0); Alkaline Phosphatase 88 U/L (39-117); Anion Gap 14 (12-20); Aspartate Amino Transferase 18 U/L (5-31); Bilirubin Direct 0.2 mg/dL (0.0-0.5); Bilirubin Total 0.6 mg/dL (0.0-1.0); Blood Urea Nitrogen 9 mg/dL (9-16); Calcium 9.2 mg/dL (8.4-10.2); Carbon Dioxide 26 mmol/L (22-29); Chloride 103 mmol/L (96-108); Creatinine Clr Calc Pharmacy 108.4; Estimated Glomerular Filt Rate > 60; Glucose Random 87 mg/dL (60-115); Lipase 14 U/L (8-78); Potassium 4.1 mmol/L (3.3-5.1); Sodium 139 mmol/L (135-145)
[2022-03-12 19:18] LABS: Strep A Nucleic Acid Invalid (Negative)
[2022-03-12 19:20] LABS: Troponin-I High Sensitivity < 3.5 ng/L (<3.5-17.0)
--- NOTE | 2022-03-12 19:43 | PC.NURSE ---
pt re-swabbed for strep by nurse Nickie, specimen sent down to the lab
[2022-03-12 20:25] LABS: COVID-19 Test Negative (Negative)
[2022-03-12 20:54] VITALS: BP 130/91; PULSE 82; RESP 16; TEMP 36.8; O2SAT 99
[2022-03-12 23:08] LABS: Strep A Nucleic Acid Invalid (Negative)
== END 2022-03-12 20:58 | disposition home or self-care (01) ==
PROVIDERS: Emergency Provider Emergency Medicine
DX: M94.0 Chondrocostal junction syndrome [Tietze] (principal); Z20.822 Contact with and (suspected) exposure to COVID-19
CPT/HCPCS: 36415; 71045; 80048; 80076; 81003; 81025; 83690; 84484; 85025; 85379; 87635; 87651; 93005; 99283; 99285

== ENCOUNTER 2022-07-16 17:25 | Emergency (ER) | payer OTHER, SELFPAY ==
--- NOTE | ~2022-07-16 | US_ITS ---
EXAMINATION: US PELVIS CLINICAL INFORMATION: Left-sided pelvic pain. Assess for ovarian abscess COMPARISON: None TECHNIQUE: Ultrasound of the pelvis is performed using both transabdominal and transvaginal transducers along with Doppler. Transvaginal imaging is performed due to inadequate visualization transabdominally. FINDINGS: Uterus: The uterus is anteverted and measures 6.7 x 3.4 x 3.9 cm. No sonographic abnormalities seen within the uterus. The double wall endometrial thickness is 0.1 mm. The uterus is smooth in contour and has normal myometrial echogenicity. No visible fibroid. Adnexa: Both ovaries are visualized. There is normal color flow to the adnexa. There is no ovarian torsion. There is no pelvic ascites or fluid collection. Right ovary measures 3.8 x 2.4 x 3.2 cm. Volume 15 mL simple appearing 2.4 cm follicle noted. Left ovary measures 3.4 x 1.6 x 1.8 cm. Volume 5 mL US/US pelvic and transvaginal IMPRESSION: No acute abnormality seen.
--- NOTE | ~2022-07-16 | US_ITS ---
EXAMINATION: US PELVIS CLINICAL INFORMATION: Left-sided pelvic pain. Assess for ovarian abscess COMPARISON: None TECHNIQUE: Ultrasound of the pelvis is performed using both transabdominal and transvaginal transducers along with Doppler. Transvaginal imaging is performed due to inadequate visualization transabdominally. FINDINGS: Uterus: The uterus is anteverted and measures 6.7 x 3.4 x 3.9 cm. No sonographic abnormalities seen within the uterus. The double wall endometrial thickness is 0.1 mm. The uterus is smooth in contour and has normal myometrial echogenicity. No visible fibroid. Adnexa: Both ovaries are visualized. There is normal color flow to the adnexa. There is no ovarian torsion. There is no pelvic ascites or fluid collection. Right ovary measures 3.8 x 2.4 x 3.2 cm. Volume 15 mL simple appearing 2.4 cm follicle noted. Left ovary measures 3.4 x 1.6 x 1.8 cm. Volume 5 mL US/US pelvic ovarian doppler IMPRESSION: No acute abnormality seen.
[2022-07-16 18:40] VITALS: BP 143/91; PULSE 102; RESP 20; TEMP 36.8; O2SAT 100; BMI 29.8
--- NOTE | 2022-07-16 18:41 | ED_ITS ---
HPI - Abdominal Pain General Chief Complaint: Abdominal Pain <Rena Stinson CNP - Last Filed: 07/16/22 18:46> Stated Complaint: sharp lower abdominal pain, nausea, light headed <Rena Stinson CNP - Last Filed: 07/16/22 18:46> Time Seen by Provider: 07/16/22 19:31 <Rena Stinson CNP - Last Filed: 07/16/22 18:46> History of Present Illness HPI narrative: Patient complains of left low abdominal pain for several days, no nausea no vomiting no bleeding no burning with urination no frequency no unusual discharge no fever <VITO Magana - Last Filed: 08/08/22 10:24> Related Data Home Medications: Previous Rx's Medication Instructions Recorded docusate sodium 100 mg capsule 100 mg PO BID PRN Constipation #14 03/14/21 (Colace) caps nitrofurantoin 100 mg PO BID 7 days #14 caps 03/14/21 monohydrate/macrocrystals 100 mg capsule (Macrobid) phenazopyridine 100 mg tablet 100 mg PO TID PRN pain 6 doses #6 03/14/21 (Pyridium) tabs sennosides 15 mg chewable tablet 7.5 mg PO DAILY Constipation 5 03/14/21 (Chocolate Laxative) days #3 tabs cyclobenzaprine 10 mg tablet 10 mg PO TID PRN muscle spasm #14 05/12/21 tabs promethazine 25 mg rectal 25 mg NM Q6H PRN nausea and 05/12/21 suppository vomiting #12 ea naproxen 500 mg tablet 500 mg PO BID PRN pain 10 days #20 08/06/21 tabs prednisone 20 mg tablet 40 mg PO DAILY 5 days #10 tabs 08/06/21 ondansetron 4 mg disintegrating 4 mg PO ONCE PRN nausea and 03/03/22 tablet vomiting #10 tabs acetaminophen 500 mg tablet 1,000 mg PO TID PRN pain #30 tabs 07/16/22 ibuprofen 600 mg tablet 600 mg PO Q6H PRN pain #20 tabs 07/16/22 metronidazole 500 mg tablet 500 mg PO BID bacterial Vaginosis 07/19/22 7 days #14 tabs <Rena Stinson CNP - Last Filed: 07/16/22 18:46> Allergies/Adverse Reactions: Allergies Allergy/AdvReac Type Severity Reaction Status Date / Time No Known Allergies Allergy Verified 03/02/22 20:44 [No Known Allergies*] <Rena Marie BE Stinson - Last Filed: 07/16/22 18:46> Review of Systems Review of Systems Positive for left low pelvic pain Negatives no fever no chills no dizziness weakness no fainting no feeling faint no headache no neck pain no stiff neck no difficulty breathing or swallowing no chest pain no shortness of breath no nausea vomiting or diarrhea no dysuria no changes to bowel or bladder no skin rash <VITO Magana - Last Filed: 08/08/22 10:24> Yes all other systems are reviewed and are negative <VITO Magana - Last Filed: 08/08/22 10:24> [facility] Past Medical History Source: nursing notes reviewed <VITO Magana - Last Filed: 08/08/22 10:24> Medical History: Medical History Costochondritis <Rena Stinson CNP - Last Filed: 07/16/22 18:46> Surgical History: Surgical History History of appendectomy [place] teeth extracted <Rena Stinson CNP - Last Filed: 07/16/22 18:46> Social History Social History: Social History Alcohol intake: never Patient Tobacco Use Status: Never used Tobacco Advance Directives: No Advance Directives Information Provided: No Current occupational status: employed 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/ [employer] <Rena Stinson CNP - Last Filed: 07/16/22 18:46> Physical Exam ED Vital Signs: Vital Signs - 24 hr 07/16/22 18:40 Temperature 98.2 F Pulse Rate 102 H Respiratory Rate 20 Blood Pressure 143/91 H Pulse Oximetry 100 Oxygen Delivery Method Room Air BMI result Body Mass Index 29.8 <Rena Stinson CNP - Last Filed: 07/16/22 18:46> Vital Signs - 24 hr 07/16/22 18:40 Temperature 98.2 F Pulse Rate 102 H Respiratory Rate 20 Blood Pressure 143/91 H Pulse Oximetry 100 Oxygen Delivery Method Room Air BMI result Body Mass Index 29.8 <VITO Magana - Last Filed: 08/08/22 10:24> General appearance is no acute distress comfortable appearing relaxed and cooperative Eyes anicteric no pallor The pharynx no redness swelling or exudate, mucous membranes are moist Neck is supple Chest clear to auscultation bilateral Heart no murmur Abdomen was soft, there was very mild left groin/pelvic tenderness there was no other abdominal tenderness No rebound no guarding Pelvic exam was normal external appearance, there was scant white discharge in the vault There was no cervical motion tenderness no enlargement of uterus or ovaries palpable, no bleeding no significant tenderness The back no CVA tenderness Extremities no edema Skin no rashes <VITO Magana - Last Filed: 08/08/22 10:24> Course Course Course Narrative: RME: Patient is a 26-year-old female who presents emergency department for evaluation of diffuse lower abdominal pain. Reports positive test 3 days ago, today took another test in the positive showed a faint line, LMP 06/10/2022. Also reporting fatigue, lightheadedness, nausea. Reports tactile fevers without chills. Denies chest pain, shortness of breath. She is overall well-appearing, nontoxic. Vital signs overall stable, she is mildly tachycardic and hypertensive. Abdominal examination with mild tenderness upon palpation to the bilateral lower quadrant. No rebound tenderness. Negative psoas sign, obturator's sign, Rovsing sign. Does not appear consistent with acute abdomen. Plan: Labs, urinalysis, pelvic ultrasound <Rena Stinson CNP - Last Filed: 07/16/22 18:46> RME: Patient is a 26-year-old female who presents emergency department for evaluation of diffuse lower abdominal pain. Reports positive test 3 days ago, today took another test in the positive showed a faint line, LMP 06/10/2022. Also reporting fatigue, lightheadedness, nausea. Reports tactile fevers without chills. Denies chest pain, shortness of breath. She is overall well-appearing, nontoxic. Vital signs overall stable, she is mildly tachycardic and hypertensive. Abdominal examination with mild tenderness upon palpation to the bilateral lower quadrant. No rebound tenderness. Negative psoas sign, obturator's sign, Rovsing sign. Does not appear consistent with acute abdomen. Plan: Labs, urinalysis, pelvic ultrasound Patient was seen complaining of only left low pelvic/abdominal pain which has been going on for 3 days She has been eating and drinking normally There was mild tenderness in the left low pelvic area, pelvic exam was normal Ultrasound was done with no findings, patient has no associated complaints no vomiting or diarrhea No acute findings on the lab workup, non no white count, UA was normal, no significant abnormality on chemistries Repeat abdominal exam had very mild left lower quadrant tenderness Patient is discharged with diagnosis pelvic pain uncertain cause and on discharge pain was 2/10 and was very mild Diverticulitis was considered but pain location seemed more pelvic and less likely, no vomiting, tolerates p.o. no acute lab findings <VITO Magana - Last Filed: 08/08/22 10:24> Medical Decision Making Lab Data MDM Lab Attestation statement: I reviewed the patient's lab results. <VITO Magana - Last Filed: 08/08/22 10:24> Result Diagrams: 07/16/22 19:25 07/16/22 19:25 <Rena Stinson CNP - Last Filed: 07/16/22 18:46> Labs: Lab Results 07/16/22 07/16/22 07/16/22 Range/Units 19:24 19:25 19:25 WBC 7.0 (4.8-10.8) X10*3/uL RBC 4.89 (4.20-5.50) X10*6/uL Hgb 14.0 (12.0-16.0) g/dl Hct 41.4 (37.0-47.0) % MCV 84.7 (80.0-98.0) fL MCH 28.6 (27.0-33.0) pg MCHC 33.8 (31.0-35.0) g/dl RDW 12.3 (11.0-16.0) % Plt Count 358 (160-400) X10*3/uL MPV 9.9 (9.4-12.3) fL Immature Gran % (Auto) 0.3 (0.0-0.4) % Neut % (Auto) 44.6 L (45-73) % Lymph % (Auto) 44.5 H (20-40) % [place] % (Auto) 6.5 (2-11) % Eos % (Auto) 3.7 (0-4) % Baso % (Auto) 0.4 (0-2) % Lymph # (Auto) 3.1 (1.2-4.9) X10*3/uL [place] # (Auto) 0.5 (0.1-1.2) X10*3/uL Eos # (Auto) 0.3 (0.0-0.4) X10*3/uL Baso # (Auto) 0.0 (0.0-0.2) X10*3/uL Abs Immat Gran (auto) 0.02 (0.00-0.03) X10*3/uL Absolute Neuts (auto) 3.1 (2.0-8.3) x10*3/uL Absolute Nucleated RBC 0.000 (0.0-0.012) X10*3/uL Nucleated RBC % (auto) 0.0 (0.0-0.2) /100WBC Sodium 137 (135-145) mmol/L Potassium 4.4 (3.3-5.1) mmol/L Chloride 108 (96-108) mmol/L Carbon Dioxide 23 (22-29) mmol/L Anion Gap 10 L (12-20) BUN 10 (9-16) mg/dL Creatinine 0.61 (0.5-1.4) mg/dL Estim Creat Clear Calc 127.6 Estimated GFR > 60 Random Glucose 97 (60-115) mg/dL Calcium 9.0 (8.4-10.2) mg/dL Total Bilirubin 0.4 (0.0-1.0) mg/dL AST 28 (5-31) U/L ALT 37 H (0-31) U/L Alkaline Phosphatase 127 H (39-117) U/L Total Protein 6.8 (6.5-8.0) g/dL Albumin 3.8 (3.5-5.0) g/dL Lipase 17 (8-78) U/L Beta HCG, Quant < 2 mIU/mL Urine Color Urine Appearance Urine pH (5.0-9.0) Ur Specific [place] (1.005-1.025) Urine Protein (Neg-Trace) mg/dL Urine Glucose (UA) (Negative) mg/dL Urine Ketones (Negative) mg/dL Urine Blood (Negative) Urine Nitrite (Negative) Ur Leukocyte Esterase (Negative) Urine RBC (0-2) /HPF Urine WBC (0-5) /HPF Ur Squamous Epith Cells (0-2) /HPF Urine Bacteria (None Seen) Hyaline Casts (0-2) /LPF Urine Test (NEGATIVE) Jennifer species DNA (Negative) Chlam trachomat DNA PCR (Not Detect.) COVID-19 ([place]) Negative (Negative) COVID-19 Clin Com See Note [place] DNA Probe (Negative) Influenza Type A ([place]) (Negative) Influenza Type B ([place]) (Negative) Influenza A & B Note N.gonorrhoeae DNA (PCR) (Not Detect.) Trichomonas DNA Probe (Negative) 07/16/22 07/16/22 07/16/22 Range/Units 19:25 21:45 21:45 WBC (4.8-10.8) X10*3/uL RBC (4.20-5.50) X10*6/uL Hgb (12.0-16.0) g/dl Hct (37.0-47.0) % MCV (80.0-98.0) fL MCH (27.0-33.0) pg MCHC (31.0-35.0) g/dl RDW (11.0-16.0) % Plt Count (160-400) X10*3/uL MPV (9.4-12.3) fL Immature Gran % (Auto) (0.0-0.4) % Neut % (Auto) (45-73) % Lymph % (Auto) (20-40) % [place] % (Auto) (2-11) % Eos % (Auto) (0-4) % Baso % (Auto) (0-2) % Lymph # (Auto) (1.2-4.9) X10*3/uL [place] # (Auto) (0.1-1.2) X10*3/uL Eos # (Auto) (0.0-0.4) X10*3/uL Baso # (Auto) (0.0-0.2) X10*3/uL Abs Immat Gran (auto) (0.00-0.03) X10*3/uL Absolute Neuts (auto) (2.0-8.3) x10*3/uL Absolute Nucleated RBC (0.0-0.012) X10*3/uL Nucleated RBC % (auto) (0.0-0.2) /100WBC Sodium (135-145) mmol/L Potassium (3.3-5.1) mmol/L Chloride (96-108) mmol/L Carbon Dioxide (22-29) mmol/L Anion Gap (12-20) BUN (9-16) mg/dL Creatinine (0.5-1.4) mg/dL Estim Creat Clear Calc Estimated GFR Random Glucose (60-115) mg/dL Calcium (8.4-10.2) mg/dL Total Bilirubin (0.0-1.0) mg/dL AST (5-31) U/L ALT (0-31) U/L Alkaline Phosphatase (39-117) U/L Total Protein (6.5-8.0) g/dL Albumin (3.5-5.0) g/dL Lipase (8-78) U/L Beta HCG, Quant mIU/mL Urine Color Yellow Urine Appearance Clear Urine pH 6.5 (5.0-9.0) Ur Specific [place] >= 1.030 H (1.005-1.025) Urine Protein Trace (Neg-Trace) mg/dL Urine Glucose (UA) Negative (Negative) mg/dL Urine Ketones Negative (Negative) mg/dL Urine Blood Negative (Negative) Urine Nitrite Negative (Negative) Ur Leukocyte Esterase Trace H (Negative) Urine RBC 0-2 (0-2) /HPF Urine WBC 0-5 (0-5) /HPF Ur Squamous Epith Cells 6-10 (0-2) /HPF Urine Bacteria 3+ (None Seen) Hyaline Casts 0-2 (0-2) /LPF Urine Test NEGATIVE (NEGATIVE) Jennifer species DNA (Negative) Chlam trachomat DNA PCR (Not Detect.) COVID-19 ([place]) (Negative) COVID-19 Clin Com [place] DNA Probe (Negative) Influenza Type A ([place]) Negative (Negative) Influenza Type B ([place]) Negative (Negative) Influenza A & B Note See Note N.gonorrhoeae DNA (PCR) (Not Detect.) Trichomonas DNA Probe (Negative) 07/16/22 07/16/22 Range/Units 22:56 22:56 WBC (4.8-10.8) X10*3/uL RBC (4.20-5.50) X10*6/uL Hgb (12.0-16.0) g/dl Hct (37.0-47.0) % MCV (80.0-98.0) fL MCH (27.0-33.0) pg MCHC (31.0-35.0) g/dl RDW (11.0-16.0) % Plt Count (160-400) X10*3/uL MPV (9.4-12.3) fL Immature Gran % (Auto) (0.0-0.4) % Neut % (Auto) (45-73) % Lymph % (Auto) (20-40) % [place] % (Auto) (2-11) % Eos % (Auto) (0-4) % Baso % (Auto) (0-2) % Lymph # (Auto) (1.2-4.9) X10*3/uL [place] # (Auto) (0.1-1.2) X10*3/uL Eos # (Auto) (0.0-0.4) X10*3/uL Baso # (Auto) (0.0-0.2) X10*3/uL Abs Immat Gran (auto) (0.00-0.03) X10*3/uL Absolute Neuts (auto) (2.0-8.3) x10*3/uL Absolute Nucleated RBC (0.0-0.012) X10*3/uL Nucleated RBC % (auto) (0.0-0.2) /100WBC Sodium (135-145) mmol/L Potassium (3.3-5.1) mmol/L Chloride (96-108) mmol/L Carbon Dioxide (22-29) mmol/L Anion Gap (12-20) BUN (9-16) mg/dL Creatinine (0.5-1.4) mg/dL Estim Creat Clear Calc Estimated GFR Random Glucose (60-115) mg/dL Calcium (8.4-10.2) mg/dL Total Bilirubin (0.0-1.0) mg/dL AST (5-31) U/L ALT (0-31) U/L Alkaline Phosphatase (39-117) U/L Total Protein (6.5-8.0) g/dL Albumin (3.5-5.0) g/dL Lipase (8-78) U/L Beta HCG, Quant mIU/mL Urine Color Urine Appearance Urine pH (5.0-9.0) Ur Specific [place] (1.005-1.025) Urine Protein (Neg-Trace) mg/dL Urine Glucose (UA) (Negative) mg/dL Urine Ketones (Negative) mg/dL Urine Blood (Negative) Urine Nitrite (Negative) Ur Leukocyte Esterase (Negative) Urine RBC (0-2) /HPF Urine WBC (0-5) /HPF Ur Squamous Epith Cells (0-2) /HPF Urine Bacteria (None Seen) Hyaline Casts (0-2) /LPF Urine Test (NEGATIVE) Jennifer species DNA Negative (Negative) Chlam trachomat DNA PCR NOT DETECTED (Not Detect.) COVID-19 ([place]) (Negative) COVID-19 Clin Com [place] DNA Probe Positive A (Negative) Influenza Type A ([place]) (Negative) Influenza Type B ([place]) (Negative) Influenza A & B Note N.gonorrhoeae DNA (PCR) NOT DETECTED (Not Detect.) Trichomonas DNA Probe Negative (Negative) <Rena Stinson, PROJECT STRUCTURAL ENGINEER - Last Filed: 07/16/22 18:46> Lab Results 07/16/22 07/16/22 07/16/22 Range/Units 19:24 19:25 19:25 WBC 7.0 (4.8-10.8) X10*3/uL RBC 4.89 (4.20-5.50) X10*6/uL Hgb 14.0 (12.0-16.0) g/dl Hct 41.4 (37.0-47.0) % MCV 84.7 (80.0-98.0) fL MCH 28.6 (27.0-33.0) pg MCHC 33.8 (31.0-35.0) g/dl RDW 12.3 (11.0-16.0) % Plt Count 358 (160-400) X10*3/uL MPV 9.9 (9.4-12.3) fL Immature Gran % (Auto) 0.3 (0.0-0.4) % Neut % (Auto) 44.6 L (45-73) % Lymph % (Auto) 44.5 H (20-40) % [place] % (Auto) 6.5 (2-11) % Eos % (Auto) 3.7 (0-4) % Baso % (Auto) 0.4 (0-2) % Lymph # (Auto) 3.1 (1.2-4.9) X10*3/uL [place] # (Auto) 0.5 (0.1-1.2) X10*3/uL Eos # (Auto) 0.3 (0.0-0.4) X10*3/uL Baso # (Auto) 0.0 (0.0-0.2) X10*3/uL Abs Immat Gran (auto) 0.02 (0.00-0.03) X10*3/uL Absolute Neuts (auto) 3.1 (2.0-8.3) x10*3/uL Absolute Nucleated RBC 0.000 (0.0-0.012) X10*3/uL Nucleated RBC % (auto) 0.0 (0.0-0.2) /100WBC Sodium 137 (135-145) mmol/L Potassium 4.4 (3.3-5.1) mmol/L Chloride 108 (96-108) mmol/L Carbon Dioxide 23 (22-29) mmol/L Anion Gap 10 L (12-20) BUN 10 (9-16) mg/dL Creatinine 0.61 (0.5-1.4) mg/dL Estim Creat Clear Calc 127.6 Estimated GFR > 60 Random Glucose 97 (60-115) mg/dL Calcium 9.0 (8.4-10.2) mg/dL Total Bilirubin 0.4 (0.0-1.0) mg/dL AST 28 (5-31) U/L ALT 37 H (0-31) U/L Alkaline Phosphatase 127 H (39-117) U/L Total Protein 6.8 (6.5-8.0) g/dL Albumin 3.8 (3.5-5.0) g/dL Lipase 17 (8-78) U/L Beta HCG, Quant < 2 mIU/mL Urine Color Urine Appearance Urine pH (5.0-9.0) Ur Specific [place] (1.005-1.025) Urine Protein (Neg-Trace) mg/dL Urine Glucose (UA) (Negative) mg/dL Urine Ketones (Negative) mg/dL Urine Blood (Negative) Urine Nitrite (Negative) Ur Leukocyte Esterase (Negative) Urine RBC (0-2) /HPF Urine WBC (0-5) /HPF Ur Squamous Epith Cells (0-2) /HPF Urine Bacteria (None Seen) Hyaline Casts (0-2) /LPF Urine Test (NEGATIVE) Jennifer species DNA (Negative) Chlam trachomat DNA PCR (Not Detect.) COVID-19 ([place]) Negative (Negative) COVID-19 Clin Com See Note [place] DNA Probe (Negative) Influenza Type A ([place]) (Negative) Influenza Type B ([place]) (Negative) Influenza A & B Note N.gonorrhoeae DNA (PCR) (Not Detect.) Trichomonas DNA Probe (Negative) 07/16/22 07/16/22 07/16/22 Range/Units 19:25 21:45 21:45 WBC (4.8-10.8) X10*3/uL RBC (4.20-5.50) X10*6/uL Hgb (12.0-16.0) g/dl Hct (37.0-47.0) % MCV (80.0-98.0) fL MCH (27.0-33.0) pg MCHC (31.0-35.0) g/dl RDW (11.0-16.0) % Plt Count (160-400) X10*3/uL MPV (9.4-12.3) fL Immature Gran % (Auto) (0.0-0.4) % Neut % (Auto) (45-73) % Lymph % (Auto) (20-40) % [place] % (Auto) (2-11) % Eos % (Auto) (0-4) % Baso % (Auto) (0-2) % Lymph # (Auto) (1.2-4.9) X10*3/uL [place] # (Auto) (0.1-1.2) X10*3/uL Eos # (Auto) (0.0-0.4) X10*3/uL Baso # (Auto) (0.0-0.2) X10*3/uL Abs Immat Gran (auto) (0.00-0.03) X10*3/uL Absolute Neuts (auto) (2.0-8.3) x10*3/uL Absolute Nucleated RBC (0.0-0.012) X10*3/uL Nucleated RBC % (auto) (0.0-0.2) /100WBC Sodium (135-145) mmol/L Potassium (3.3-5.1) mmol/L Chloride (96-108) mmol/L Carbon Dioxide (22-29) mmol/L Anion Gap (12-20) BUN (9-16) mg/dL Creatinine (0.5-1.4) mg/dL Estim Creat Clear Calc Estimated GFR Random Glucose (60-115) mg/dL Calcium (8.4-10.2) mg/dL Total Bilirubin (0.0-1.0) mg/dL AST (5-31) U/L ALT (0-31) U/L Alkaline Phosphatase (39-117) U/L Total Protein (6.5-8.0) g/dL Albumin (3.5-5.0) g/dL Lipase (8-78) U/L Beta HCG, Quant mIU/mL Urine Color Yellow Urine Appearance Clear Urine pH 6.5 (5.0-9.0) Ur Specific [place] >= 1.030 H (1.005-1.025) Urine Protein Trace (Neg-Trace) mg/dL Urine Glucose (UA) Negative (Negative) mg/dL Urine Ketones Negative (Negative) mg/dL Urine Blood Negative (Negative) Urine Nitrite Negative (Negative) Ur Leukocyte Esterase Trace H (Negative) Urine RBC 0-2 (0-2) /HPF Urine WBC 0-5 (0-5) /HPF Ur Squamous Epith Cells 6-10 (0-2) /HPF Urine Bacteria 3+ (None Seen) Hyaline Casts 0-2 (0-2) /LPF Urine Test NEGATIVE (NEGATIVE) Jennifer species DNA (Negative) Chlam trachomat DNA PCR (Not Detect.) COVID-19 ([place]) (Negative) COVID-19 Clin Com [place] DNA Probe (Negative) Influenza Type A ([place]) Negative (Negative) Influenza Type B ([place]) Negative (Negative) Influenza A & B Note See Note N.gonorrhoeae DNA (PCR) (Not Detect.) Trichomonas DNA Probe (Negative) 07/16/22 07/16/22 Range/Units 22:56 22:56 WBC (4.8-10.8) X10*3/uL RBC (4.20-5.50) X10*6/uL Hgb (12.0-16.0) g/dl Hct (37.0-47.0) % MCV (80.0-98.0) fL MCH (27.0-33.0) pg MCHC (31.0-35.0) g/dl RDW (11.0-16.0) % Plt Count (160-400) X10*3/uL MPV (9.4-12.3) fL Immature Gran % (Auto) (0.0-0.4) % Neut % (Auto) (45-73) % Lymph % (Auto) (20-40) % [place] % (Auto) (2-11) % Eos % (Auto) (0-4) % Baso % (Auto) (0-2) % Lymph # (Auto) (1.2-4.9) X10*3/uL [place] # (Auto) (0.1-1.2) X10*3/uL Eos # (Auto) (0.0-0.4) X10*3/uL Baso # (Auto) (0.0-0.2) X10*3/uL Abs Immat Gran (auto) (0.00-0.03) X10*3/uL Absolute Neuts (auto) (2.0-8.3) x10*3/uL Absolute Nucleated RBC (0.0-0.012) X10*3/uL Nucleated RBC % (auto) (0.0-0.2) /100WBC Sodium (135-145) mmol/L Potassium (3.3-5.1) mmol/L Chloride (96-108) mmol/L Carbon Dioxide (22-29) mmol/L Anion Gap (12-20) BUN (9-16) mg/dL Creatinine (0.5-1.4) mg/dL Estim Creat Clear Calc Estimated GFR Random Glucose (60-115) mg/dL Calcium (8.4-10.2) mg/dL Total Bilirubin (0.0-1.0) mg/dL AST (5-31) U/L ALT (0-31) U/L Alkaline Phosphatase (39-117) U/L Total Protein (6.5-8.0) g/dL Albumin (3.5-5.0) g/dL Lipase (8-78) U/L Beta HCG, Quant mIU/mL Urine Color Urine Appearance Urine pH (5.0-9.0) Ur Specific [place] (1.005-1.025) Urine Protein (Neg-Trace) mg/dL Urine Glucose (UA) (Negative) mg/dL Urine Ketones (Negative) mg/dL Urine Blood (Negative) Urine Nitrite (Negative) Ur Leukocyte Esterase (Negative) Urine RBC (0-2) /HPF Urine WBC (0-5) /HPF Ur Squamous Epith Cells (0-2) /HPF Urine Bacteria (None Seen) Hyaline Casts (0-2) /LPF Urine Test (NEGATIVE) Jennifer species DNA Negative (Negative) Chlam trachomat DNA PCR NOT DETECTED (Not Detect.) COVID-19 ([place]) (Negative) COVID-19 Clin Com [place] DNA Probe Positive A (Negative) Influenza Type A ([place]) (Negative) Influenza Type B ([place]) (Negative) Influenza A & B Note N.gonorrhoeae DNA (PCR) NOT DETECTED (Not Detect.) Trichomonas DNA Probe Negative (Negative) <VITO Magana - Last Filed: 08/08/22 10:24> Medications Administered Discontinued Medications Generic Name Dose Route Start Last Admin Trade Name Freq PRN Reason Stop Dose Admin Ibuprofen 600 mg 07/16/22 23:35 07/16/22 23:43 Ibuprofen 600 Mg Tablet PO 07/16/22 23:36 600 mg ONCE ONE Administration <Rena Stinson CNP - Last Filed: 07/16/22 18:46> Medications Administered Discontinued Medications Generic Name Dose Route Start Last Admin Trade Name Freq PRN Reason Stop Dose Admin Ibuprofen 600 mg 07/16/22 23:35 07/16/22 23:43 Ibuprofen 600 Mg Tablet PO 07/16/22 23:36 600 mg ONCE ONE Administration <VITO Magana - Last Filed: 08/08/22 10:24> Discharge Plan Discharge Clinical Impression: Pelvic pain, Bacterial vaginosis <Rena Stinson CNP - Last Filed: 07/16/22 18:46> Patient Disposition: Home, Self-Care <Rena Stinson CNP - Last Filed: 07/16/22 18:46> Additional Instructions: Our workup today did not find anything dangerous or worrisome We are not sure what is causing the pain but it does not appear to be any kind of infection or surgical emergency Use Tylenol or Motrin as needed, 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 if pain continues at a mild level Return to the ER any time for any worse pain vomiting fever burning with urination any change or worse condition or any concerns <Rena Stinson CNP - Last Filed: 07/16/22 18:46> Prescriptions: New acetaminophen 500 mg tablet 1,000 mg PO TID PRN (Reason: pain) Qty: 30 0RF ibuprofen 600 mg tablet 600 mg PO Q6H PRN (Reason: pain) Qty: 20 0RF metronidazole 500 mg tablet 500 mg PO BID 7 Days Qty: 14 0RF No Action nitrofurantoin monohyd/m-cryst [Macrobid] 100 mg capsule 100 mg PO BID 7 Days Qty: 14 0RF Rx Instructions: must administer with a meal/food phenazopyridine [Pyridium] 100 mg tablet 100 mg PO TID PRN (Reason: pain) Qty: 6 0RF docusate sodium [Colace] 100 mg capsule 100 mg PO BID PRN (Reason: Constipation) Qty: 14 0RF Chocolate Laxative 15 mg tablet,chewable 7.5 mg PO DAILY 5 Days Qty: 3 0RF cyclobenzaprine 10 mg tablet 10 mg PO TID PRN (Reason: muscle spasm) Qty: 14 0RF promethazine 25 mg suppository 25 mg NM Q6H PRN (Reason: nausea and vomiting) Qty: 12 0RF naproxen 500 mg tablet 500 mg PO BID PRN (Reason: pain) 10 Days Qty: 20 0RF prednisone 20 mg tablet 40 mg PO DAILY 5 Days Qty: 10 0RF ondansetron 4 mg tablet,disintegrating 4 mg PO ONCE PRN (Reason: nausea and vomiting) Qty: 10 0RF <Rena Stinson CNP - Last Filed: 07/16/22 18:46> Interventions: ED Discharge Assessment Last Done: 07/16/22 23:59 <Rena Stinson CNP - Last Filed: 07/16/22 18:46> Discharge Date/Time: 07/16/22 23:59 <Rena Stinson CNP - Last Filed: 07/16/22 18:46>
--- OUTSIDE RECORDS SUMMARY | 2022-07-16 19:29 | XMS_ITS | Continuity of Care Document ---
:1995 Author Organization [facility] ic Address [address] [place] [id number]- Care Team Providers Name Role Phone Spencer SCANLON, Mireya Clemens Primary Care Physician Encounter [facility] Date(s): 09/25/21 - 10/25/[address] [id number]- Allergies, Adverse Reactions, Alerts No Known Allergies Immunizations Given and Recorded Vaccine Date Status Refusal Reason influenza virus vaccine, inactivated 07/05/21 Given influenza virus vaccine, inactivated 05/24/20 Given influenza virus vaccine, inactivated 04/15/19 Given influenza virus vaccine, inactivated 08/13/18 Given influenza virus vaccine, inactivated 04/24/17 Given tetanus/diphtheria/pertussis, acel(Tdap) 01/15/19 Given tetanus/diphtheria/pertussis, acel(Tdap) 02/20/17 Given Medications oxyCODONE 5 mg oral capsule 1 capsule = 5 mg, By Mouth, Every 6 hours, PRN Pain , Severe, Take for post-op pain, # 5 capsule, 0 Refills, Maintenance, 10/02/21 12:59:00 EST, Capsule, [id number], Partial fill upon patient request if the prescription is for a schedule II op... 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
--- OUTSIDE RECORDS SUMMARY | 2022-07-16 19:29 | XMS_ITS | Continuity of Care Document ---
:1995 Author Organization [facility] ic Address [address] [place] [address]- Care Team Providers Name Role Phone Spencer SCANLON, Mireya Clemens Primary Care Physician [facility]counter [facility] Date(s): 05/24/20 - 09/15/[address] [address]- Attending Physician: Not on Staff, Attending MD Allergies, Adverse Reactions, Alerts Substance Reaction Severity Status NKA Active Immunizations Given and Recorded Vaccine Date Status Refusal Reason influenza virus vaccine, inactivated 05/24/20 Given influenza virus vaccine, inactivated 04/15/19 Given influenza virus vaccine, inactivated 08/13/18 Given influenza virus vaccine, inactivated 04/24/17 Given tetanus/diphtheria/pertussis, acel(Tdap) 01/15/19 Given tetanus/diphtheria/pertussis, acel(Tdap) 02/20/17 Given Problem List Condition Effective Dates Status Health Status Informant History of polyhydramnios(Confirmed) Active History of herpes genitalis(Confirmed) Active Uterine scar from previous Active delivery(Confirmed) Social History Social History Type Response Smoking Status Never smoker; Tobacco user i n household: No entered on: 12/04/17 Sex Female
--- OUTSIDE RECORDS SUMMARY | 2022-07-16 19:29 | XMS_ITS | Continuity of Care Document ---
:1995 Author Organization [facility] Address [address] [place] [address]- Care Team Providers Name Role Phone Not on Staff, PCP Primary Care Physician Unavailable [place] [facility] [place] - 03/30/[address] [address]- Attending Physician: Manju Rodriguez Admitting Physician: Manju Rodriguez Referring Physician: AdmManju croft Allergies, Adverse Reactions, Alerts No Known Allergies [...] Refills, Maintenance, 10/02/21 12:59:00 EST, Capsule, [id number], Partial fill upon patient request if the [...] household: No entered on: 12/04/17 Sex Female Care Team PersonnelName: Not on Staff, PCP
--- OUTSIDE RECORDS SUMMARY | 2022-07-16 19:29 | XMS_ITS | Continuity of Care Document ---
:1995 Author Organization [facility] ic Address [address] [place] [address]- Care Team Providers Name Role Phone Spencer SCANLON, Mireya Clemens Primary Care Physician Encounter [facility] Date(s): 07/05/21 - 10/20/[address] [address] Attending Physician: Not on Staff, Attending MD Allergies, Adverse Reactions, Alerts No Known Allergies [...] Refills, Maintenance, 10/02/21 12:59:00 EST, Capsule, [id number], Partial fill upon patient request if the [...]
--- OUTSIDE RECORDS SUMMARY | 2022-07-16 19:30 | XMS_ITS | Continuity of Care Document ---
:1995 Author Organization [facility] Address [address] [place] [address]- Care Team Providers Name Role Phone Not on Staff, PCP Primary Care Physician Unavailable Encounter [facility] [place] Date(s): 09/18/21 - 01/03/[address] [address]- Attending Physician: Not on Staff, Attending MD [...] Refills, Maintenance, 10/02/21 12:59:00 EST, Capsule, [id number], Partial fill upon patient request if the [...]
--- OUTSIDE RECORDS SUMMARY | 2022-07-16 19:30 | XMS_ITS | Continuity of Care Document ---
:1995 Author Organization [facility] Address [address] [place] [address]- Care Team Providers Name Role Phone Mireya Palmer MD Primary Care Physician [facility]counter [facility] Date(s): 06/02/19 - 09/23/[address] [address]- [facility] Attending Physician: Ronald Marshall MD Admitting Physician: Ronald Marshall MD Allergies, Adverse Reactions, Alerts Substance Reaction Severity Status NKA Active Immunizations Given and Recorded Vaccine Date Status Refusal Reason influenza virus vaccine, inactivated 04/15/19 Given influenza virus vaccine, inactivated 08/13/18 Given influenza virus vaccine, inactivated 04/24/17 Given tetanus/diphtheria/pertussis, acel(Tdap) 01/15/19 Given tetanus/diphtheria/pertussis, acel(Tdap) 02/20/17 Given Medications No Known Medications Problem List Condition Effective Dates Status Health Status Informant History of polyhydramnios(Confirmed) Active History of herpes genitalis(Confirmed) Active Uterine scar from previous Active delivery(Confirmed) Vital Signs Most recent to oldest [Reference Range]: 1 Height 154.94 cm (07/07/19 8:35 AM) Weight 65.91 kg (07/07/19 8:35 AM) Body Mass Index [18.5-24.99] 27.46 *H* (07/07/19 8:35 AM) Dry Weight 65.91 kg (07/07/19 8:35 AM) Weight Obtained Via Patient/family stated (07/07/19 8:35 AM) Dry Weight Obtained Via Patient/family stated (07/07/19 8:35 AM) Social History Social History Type Response Smoking Status Never smoker; Tobacco user i n household: No entered on: 12/04/17 Sex
--- OUTSIDE RECORDS SUMMARY | 2022-07-16 19:30 | XMS_ITS | Continuity of Care Document ---
:1995 Author Organization [facility] Address [address] [place] [address]- Care Team Providers Name Role Phone Not on Staff, PCP Primary Care Physician Unavailable [place] [facility] [place] - 06/30/[address] [address]- Attending Physician: Manju Rodriguez Admitting Physician: Manju Rodriguez Referring Physician: AdmtrManju Allergies, Adverse Reactions, Alerts No Known Allergies [...] Refills, Maintenance, 10/02/21 12:59:00 EST, Capsule, [id number], Partial fill upon patient request if the prescription is for a schedule II op... 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 History of herpes Confirmed Active genitalis Uterine scar from Confirmed Active previous delivery Social History Social History Type Response Smoking Status Never smoker; Tobacco user i n household: No entered on: 12/04/17 Sex Female Note Naveen Palomino: PERFORM, SIGN, VERIFY Event Display: Patient Education/Instruction Authored Date: [id number] [facility] Clinical Summary Person Information Visit Date 12/04/2016 2:40 PM Name BRIANA MCHUGH Age 20 Years 1995 12:00 AM PCP Mireya Palmer MD PCP Sex Female Race White Ethnicity / Language Egyptian You can now view a summary of your hospital visit from the comfort of your home through a free online portal called [employer]. [employer] is a website that allows you to securely view yourmedical information including discharge summary, medications and follow-up visits. You can also senda secure electronic message to your doctor???s office to request appointments, renew medications or just ask a question. You can enroll at [email or web address] or register during your next office visit. Smoking can increase your chances of developing chronic health problems and can cause harmful effects to other family members in your house. If you smoke, you are strongly encouraged to quit. Please call the [place] Smokers??? Helpline at 8-260-ESWGNOW (or ) or log on to [email or web address] for more information. Reason for Visit: Allergy Info: NKA Smoking Status Never smoker Vital Signs Height Weight BMI Blood Pressure / Temperature Pulse Rate Respiratory Rate 02 Sat Mode of Delivery / Medication Information Azithromycin (azithromycin 500 mg oral tablet) 2 tablet, Oral, once, Refills: 0 Docusate (Colace sodium 100 mg oral capsule) 1 capsule, Oral, twice a day, As Needed, for constipation, Refills: 0 Durable Medical Equipment (Crutches) , See Instructions, None, Refills: 0 Durable Medical Equipment (Post operative shoe) , See Instructions, None, Refills: 0 Multivitamin, ( Multivitamins with Folic Acid 1 mg oral tablet) 1 tablet, Oral, Daily, Refills: 2 Polyethylene Glycol 3350 (MiraLax oral powder for reconstitution) 17 Gm, Oral, Daily, dissolve in water before taking, As Needed, Constipation, Refills: 0 Future Orders No future orders Orders Completed this Visit No visit orders documented Problem List Problem Acute urinary tract infection Varicella non-immune Chlamydial infection Diagnosis Procedures No Procedures Documented If the following labs have been performed in the last year, the most recent result is displayed below. Diagnostic Results Lab Result Value Date Lead Hemoglobin A1C LDL HDL Triglycerides Total Cholesterol Disclaimer: The information provided is of a general nature and is intended to be used in conjunction with the recommendations and advice of your health care practitioner. Every effort has been made toensure that the information provided is accurate and complete at the time it is provided to you however, as your needs change, or, as new information becomes available, different or additional instructions may be required. If you have questions, please consult with your primary care provider or pharmacist, as appropriate.This information is not intended to serve as substitution for assessment and evaluation by a qualified health care provider. If you do not have a primary care provider, you may find a [facility] [employer] pr ovider by calling [facility] [employer] at [phone]. For information about the plan of care including goals and instructions for your diagnosis, please see the patient education orders section of this document. Patient Visit Summary: Future Appointments: Type Location Start Finish State Return [facility] 12/04/2016 2:40 PM 12/04/2016 3:00 PM Pending Follow-Up Instructions Patient Education Materials Additional Instructions: Patient Care team information Care Team PersonnelName: Dina Mills Position: S RN Member Role: Primary Care Nurse Name: Not on Staff, PCP Position: S Physician (General Medicine) Member Role: PCP Care Team Related PersonsName: CHANTE LEE Address: home [address] [place] [address] Name: FRANK CASTILLO Address: home [address] [place] [address] Name: ARCADIO JOSÉ Address: home [address] [place] [address] Name: ILEANA BA Address: home [address] [place] [address]
--- OUTSIDE RECORDS SUMMARY | 2022-07-16 19:30 | XMS_ITS | Continuity of Care Document ---
:1995 Author Organization [facility] Address [address] [place] [address]- Care Team Providers Name Role Phone Not on Staff, PCP Primary Care Physician Unavailable [facility]counter [facility] Date(s): 10/13/21 - 10/13/[address] [address] Discharge Disposition: A-D/C Home Attending Physician: Michael Christie MD Admitting Physician: Michael Christie MD Referring Physician: Michael Christie MD Allergies, Adverse Reactions, Alerts No Known [...] Refills, Maintenance, 10/02/21 12:59:00 EST, Capsule, [id number], Partial fill upon patient request if the prescription is for a schedule II op... 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(Confirmed) Active History of herpes genitalis(Confirmed) Active Uterine scar from previous Active delivery(Confirmed) Vital Signs Most recent to oldest 1 2 3 [Reference Range]: Height 155 cm 155 cm (10/13/21 12:29 PM) (10/02/21 6:35 PM) Weight 63.3 kg 63.5 kg (10/13/21 12:29 PM) (10/02/21 6:35 PM) Oxygen Saturation [94-100 100 % 100 % 100 % %] (10/13/21 1:45 PM) (10/13/21 1:30 PM) (10/13/21 1:1 5 PM) Pulse Rate [55-90 bpm] 78 bpm (10/13/21 12:29 PM) Body Mass Index 26.35 26.43 [18.5-24.99] *H* *H* (10/13/21 12:29 PM) (10/02/21 6:35 PM) Blood Pressure 124/78 mm Hg 128/85 mm Hg 126/81 mm Hg [90-138/55-84 mm Hg] (10/13/21 1:45 PM) (10/13/21 1:30 PM) ( 2 1:15 PM) Respiratory Rate [16-30 13 br/min 11 br/min 13 br/mi n br/min] *L* *L* *L* (10/13/21 1:45 PM) (10/13/21 1:30 PM) (10/13/21 1:1 5 PM) Temperature [96.8-100.4 97.7 DegF 98.3 DegF 98.3 Deg F DegF] (10/13/21 2:00 PM) (10/13/21 1:15 PM) (10/13/21 12: 29 PM) Liters per Minute 6 L/min (10/13/21 1:15 PM) Mode of Delivery (Oxygen) Room air Room air Room a ir (10/13/21 2:00 PM) (10/13/21 1:45 PM) (10/13/21 1:3 0 PM) Blood pressure sites Arm, right (10/13/21 12:29 PM) Temperature Route Temporal Temporal Temporal (10/13/21 2:00 PM) (10/13/21 1:15 PM) (10/13/21 12: 29 PM) Dry Weight 63.3 kg 63.5 kg (10/13/21 12:29 PM) (10/02/21 6:35 PM) Weight Obtained Via Standing scale (10/13/21 12:29 PM) Dry Weight Obtained Via Patient/family stated (10/02/21 6:35 PM) Social History Social History Type Response Smoking Status Never smoker; Tobacco user i n household: No entered on: 12/04/17 Sex Female
--- OUTSIDE RECORDS SUMMARY | 2022-07-16 19:30 | XMS_ITS | Continuity of Care Document ---
:1995 Author Organization [facility] Address [address] [place] [address]- Care Team Providers Name Role Phone Not on Staff, PCP Primary Care Physician Unavailable [place] [facility] [place]18[place] - 06/17/[address] [address]- Allergies, Adverse Reactions, Alerts No Known Allergies [...] Refills, Maintenance, 10/02/21 12:59:00 EST, Capsule, [id number], Partial fill upon patient request if the [...] household: No entered on: 12/04/17 Sex Female Patient Care team information Care Team PersonnelName: Dina Mills Position: [facility] RN Member Role: Primary Care Nurse Name: Not on Staff, PCP Position: [facility] Physician (General Medicine) Member Role: PCP Care Team Related PersonsName: CHANTE LEE Address: home [address] [place] [address] Name: FRANK CASTILLO Address: [address] [place] [address] Name: ARCADIO JOSÉ Address: [address] [place] [address] Name: ILEANA BA Address: [address] [place] [address]
--- OUTSIDE RECORDS SUMMARY | 2022-07-16 19:30 | XMS_ITS | Continuity of Care Document ---
:1995 Author Organization [facility] ic Address [address] [place] [address]- Care Team Providers Name Role Phone Spencer SCANLON, Mireya Clemens Primary Care Physician Encounter [facility] [place] Date(s): 06/19/19 - 10/30/[address] [address]- [facility] Attending Physician: Not on Staff, Attending MD [...]
--- OUTSIDE RECORDS SUMMARY | 2022-07-16 19:30 | XMS_ITS | Continuity of Care Document ---
:1995 Author Organization [facility] ic Address [address] [place] [address]- Care Team Providers Name Role Phone Spencer SCANLON, Mireya Clemens Primary Care Physician Encounter [facility] Date(s): 04/18/21 - 08/03/[address] [address]- Attending Physician: Not on Staff, Attending MD [...]
--- OUTSIDE RECORDS SUMMARY | 2022-07-16 19:30 | XMS_ITS | Continuity of Care Document ---
:1995 Author Organization [facility] Address [address] [place] [address]- Care Team Providers Name Role Phone Not on Staff, PCP Primary Care Physician Unavailable Encounter [facility] [place] Date(s): 09/18/21 - 10/18/[address] [address]- Allergies, Adverse Reactions, Alerts No Known Allergies [...] Refills, Maintenance, 10/02/21 12:59:00 EST, Capsule, [id number], Partial fill upon patient request if the [...]
--- OUTSIDE RECORDS SUMMARY | 2022-07-16 19:30 | XMS_ITS | Continuity of Care Document ---
:1995 Author Organization [facility] Address [address] [place] [address]- Care Team Providers Name Role Phone Not on Staff, PCP Primary Care Physician Unavailable [facility]counter [facility] Date(s): 02/26/22 - 03/30/[address] [address]- Attending Physician: Not on Staff, Attending MD [...] Refills, Maintenance, 10/02/21 12:59:00 EST, Capsule, [id number], Partial fill upon patient request if the [...]
--- OUTSIDE RECORDS SUMMARY | 2022-07-16 19:30 | XMS_ITS | Continuity of Care Document ---
:1995 Author Organization [facility] ic Address [address] [place] [address]- Care Team Providers Name Role Phone Spencer SCANLON, Mireya Clemens Primary Care Physician Encounter [facility] [place] Date(s): 01/20/21 - 02/19/[address] [address] Attending Physician: Manju Rodriguez Admitting Physician: Manju Rodriguez Referring Physician: AdmtrManju Allergies, Adverse Reactions, Alerts Substance Reaction Severity [...]
--- OUTSIDE RECORDS SUMMARY | 2022-07-16 19:30 | XMS_ITS | Continuity of Care Document ---
:1995 Author Organization [facility] ic Address [address] [place] [address]- Care Team Providers Name Role Phone Spencer SCANLON, Mireya Clemens Primary Care Physician [facility]counter [facility] Date(s): 12/24/19 - 04/09/[address] [address]- [facility] Attending Physician: Not on Staff, Attending MD [...]
--- OUTSIDE RECORDS SUMMARY | 2022-07-16 19:30 | XMS_ITS | Continuity of Care Document ---
:1995 Author Organization [facility] ic Address [address] [place] [address]- Care Team Providers Name Role Phone Spencer SCANLON, Mireya Clemens Primary Care Physician Encounter [facility] Date(s): 07/14/21 - 08/13/[address] [address]- Allergies, Adverse Reactions, Alerts No Known Allergies [...]
--- OUTSIDE RECORDS SUMMARY | 2022-07-16 19:30 | XMS_ITS | Continuity of Care Document ---
:1995 Author Organization [facility] ic Address [address] [place] [address]- Care Team Providers Name Role Phone Spencer SCANLON, Mireya Cleemns Primary Care Physician [place] [facility] [place] Date(s): 03/10/20 - 04/09/[address] [address]- [facility] Attending Physician: Manju Rodriguez Admitting Physician: Manju Rodriguez Referring Physician: Manju Rodriguez Allergies, Adverse Reactions, Alerts Substance Reaction Severity [...]
--- OUTSIDE RECORDS SUMMARY | 2022-07-16 19:30 | XMS_ITS | Continuity of Care Document ---
:1995 Author Organization [facility] Address [address] [place] [address]- Care Team Providers Name Role Phone Not on Staff, PCP Primary Care Physician Unavailable [facility]counter [facility] Date(s): 06/06/22 - 07/15/[address] [address] Attending Physician: Niall Haque MD Admitting Physician: Niall Haque MD Referring Physician: Tish Galaviz MD Allergies, Adverse Reactions, Alerts No Known [...] Refills, Maintenance, 10/02/21 12:59:00 EST, Capsule, [id number], Partial fill upon patient request if the [...] information Care Team PersonnelName: Dina Mills Position: [facility] RN Member Role: Primary Care Nurse Name: Not on Staff, PCP Position: [facility] Physician (General Medicine) Member Role: PCP Care Team Related PersonsName: LEECHANTE BA Address: home [address] [place] [address] Name: FRANK CASTILLO Address: [address] [place] [address] Name: ARCADIO JOSÉ Address: [address] [place] [address] Name: ILEANA BA Address: [address] [place] [address]
--- OUTSIDE RECORDS SUMMARY | 2022-07-16 19:30 | XMS_ITS | Continuity of Care Document ---
:1995 Author Organization [facility] Address [address] [place] [address]- Care Team Providers Name Role Phone Not on Staff, PCP Primary Care Physician Unavailable Encounter [facility] [place] Date(s): 09/14/21 - 10/14/[address] [address]- Allergies, Adverse Reactions, Alerts No Known Allergies [...] Refills, Maintenance, 10/02/21 12:59:00 EST, Capsule, [id number], Partial fill upon patient request if the [...]
[2022-07-16 19:31] LABS: Basophils Percent Auto 0.4 % (0-2); Eosinophils Absolute Auto 0.3 X10*3/uL (0.0-0.4); Eosinophils Percent Auto 3.7 % (0-4); Hematocrit 41.4 % (37.0-47.0); Imm Gran Abs Auto 0.02 X10*3/uL (0.00-0.03); Imm Gran Pct Auto 0.3 % (0.0-0.4); Lymphocytes Absolute Auto 3.1 X10*3/uL (1.2-4.9); Lymphocytes Percent Auto 44.5 % (20-40); MANUAL DIFF FLAG NO; Mean Corpuscular HGB Conc 33.8 g/dl (31.0-35.0); Mean Corpuscular Hemoglobin 28.6 pg (27.0-33.0); Mean Corpuscular Volume 84.7 fL (80.0-98.0); Mean Platelet Volume 9.9 fL (9.4-12.3); Monocytes Absolute Auto 0.5 X10*3/uL (0.1-1.2); Monocytes Percent Auto 6.5 % (2-11); Neutrophils Absolute Auto 3.1 x10*3/uL (2.0-8.3); Neutrophils Percent Auto 44.6 % (45-73); Platelet Count 358 X10*3/uL (160-400); Red Blood Count 4.89 X10*6/uL (4.20-5.50); Red Cell Distribution Width 12.3 % (11.0-16.0)
[2022-07-16 19:51] LABS: COVID-19 Test Negative (Negative)
[2022-07-16 19:52] LABS: IDNOW Serial# 08D9AD1C; Influenza A Negative (Negative); Influenza B2 Negative (Negative)
[2022-07-16 20:23] LABS: Alanine Aminotransferase 37 U/L (0-31); Albumin Level 3.8 g/dL (3.5-5.0); Alkaline Phosphatase 127 U/L (39-117); Anion Gap 10 (12-20); Aspartate Amino Transferase 28 U/L (5-31); Bilirubin Total 0.4 mg/dL (0.0-1.0); Blood Urea Nitrogen 10 mg/dL (9-16); Carbon Dioxide 23 mmol/L (22-29); Chloride 108 mmol/L (96-108); Creatinine Clr Calc Pharmacy 127.6; Estimated Glomerular Filt Rate > 60; Glucose Random 97 mg/dL (60-115); HCG Quantitative < 2 mIU/mL; Lipase 17 U/L (8-78); Potassium 4.4 mmol/L (3.3-5.1); Sodium 137 mmol/L (135-145); Total Protein 6.8 g/dL (6.5-8.0)
[2022-07-16 21:51] LABS: Appearance Urine Clear; Color Urine Yellow; Glucose Urine UA Negative (Negative); Leukocyte Esterase Urine Trace (Negative); Nitrite Urine Negative (Negative); PH 6.5 (5.0-9.0); Specific Gravity - Urine >= 1.030 (1.005-1.025); UMIC TRIGGER UACC YES; Urine Blood Negative (Negative); Urine Ketones Negative (Negative); Urine Protein Trace mg/dL (Neg-Trace)
[2022-07-16 21:52] LABS: UPreg QC Valid YES; Urine Pregnancy NEGATIVE (NEGATIVE)
[2022-07-16 21:56] LABS: Bacteria Urine 3+ (None Seen); Hyaline Casts Urine 0-2 /LPF (0-2); RBC Urine 0-2 /HPF (0-2); WBC Urine 0-5 /HPF (0-5)
[2022-07-16] MEDS: Ibuprofen 600 MG TABLET PO (23:43)
[2022-07-17 04:31] LABS: CT PCR NOT DETECTED (Not Detect.); NG PCR NOT DETECTED (Not Detect.)
[2022-07-17 09:16] LABS: BV Int Neg Control Negative (Negative); BV Int Pos Control Positive (Positive)
== END 2022-07-16 23:59 | disposition home or self-care (01) ==
PROVIDERS: Nurse Practitioner Family; Physician Assistant Medical; Emergency Provider Emergency Medicine
DX: R10.2 Pelvic and perineal pain (principal); R42 Dizziness and giddiness; R11.2 Nausea with vomiting, unspecified; Z20.822 Contact with and (suspected) exposure to COVID-19; Z79.899 Other long term (current) drug therapy
CPT/HCPCS: 76830; 76856; 80053; 81001; 81025; 83690; 84702; 85025; 87480; 87491; 87502; 87510; 87591; 87635; 87660; 93975; 99283; 99284

== ENCOUNTER 2022-08-15 17:16 | Emergency (ER) | payer OTHER, SELFPAY ==
--- NOTE | ~2022-08-15 | XR_ITS ---
EXAMINATION: XR SHOULDER, LEFT CLINICAL INFORMATION: Atraumatic shoulder pain. COMPARISON: Chest radiograph 03/12/2022. TECHNIQUE: Four views of the left shoulder. FINDINGS: The bones and soft tissues are normal. No fracture. Glenohumeral and acromioclavicular alignment is anatomic with normal joint space. No abnormal soft tissue calcifications. XR/XR shoulder LT min 2V IMPRESSION: Normal left shoulder.
[2022-08-15 17:24] VITALS: BP 148/93; PULSE 93; RESP 18; TEMP 36.3; O2SAT 99; BMI 30.2
--- NOTE | 2022-08-15 17:29 | ED.EXTPRO ---
HPI - Extremity Problem General Chief complaint: Extremity Injury, Upper <VITO Ayala - Last Filed: 08/15/22 17:31> Stated complaint: Work inj. L shoulder popped? <VITO Ayala - Last Filed: 08/15/22 17:31> Time Seen by Provider: 08/15/22 17:33 <VITO Ayala - Last Filed: 08/15/22 17:31> Source: patient <VITO Beavers - Last Filed: 08/15/22 18:21> Mode of arrival: ambulatory <VITO Beavers - Last Filed: 08/15/22 18:21> Limitations: no limitations <VITO Beavers - Last Filed: 08/15/22 18:21> History of Present Illness HPI Narrative: 26 yo female presenting to the ER with left shoulder pain after she heard a pop when reaching behind her today at work. She has had pain in the front of her shoulder since. Worse with movement and palpation. She states the pain radiates down her upper arm half way. It does not radiate to her neck or back. She denies any weakness, numbness or tingling. <VITO Beavers - Last Filed: 08/15/22 18:21> MD Complaint: joint pain <VITO Beavers - Last Filed: 08/15/22 18:21> Onset (ago): hour(s) <VITO Beavers - Last Filed: 08/15/22 18:21> Location: left and upper extremity <VITO Beavers - Last Filed: 08/15/22 18:21> Quality: aching <VITO Beavers - Last Filed: 08/15/22 18:21> Radiation: none <VITO Beavers - Last Filed: 08/15/22 18:21> Relieving factors: immobilization and rest <VITO Beavers Last Filed: 08/15/22 18:21> Exacerbating factors: range of motion, weight bearing and palpation <VITO Beavers - Last Filed: 08/15/22 18:21> Associated symptoms: denies other symptoms <VITO Beavers - Last Filed: 08/15/22 18:21> Related Data Home medications: Previous Rx's Medication Instructions Recorded docusate sodium 100 mg capsule 100 mg PO BID PRN Constipation #14 03/14/21 (Colace) caps nitrofurantoin 100 mg PO BID 7 days #14 caps 03/14/21 monohydrate/macrocrystals 100 mg capsule (Macrobid) phenazopyridine 100 mg tablet 100 mg PO TID PRN pain 6 doses #6 03/14/21 (Pyridium) tabs sennosides 15 mg chewable tablet 7.5 mg PO DAILY Constipation 5 03/14/21 (Chocolate Laxative) days #3 tabs cyclobenzaprine 10 mg tablet 10 mg PO TID PRN muscle spasm #14 05/12/21 tabs promethazine 25 mg rectal 25 mg MS Q6H PRN nausea and 05/12/21 suppository vomiting #12 ea naproxen 500 mg tablet 500 mg PO BID PRN pain 10 days #20 08/06/21 tabs prednisone 20 mg tablet 40 mg PO DAILY 5 days #10 tabs 08/06/21 ondansetron 4 mg disintegrating 4 mg PO ONCE PRN nausea and 03/03/22 tablet vomiting #10 tabs acetaminophen 500 mg tablet 1,000 mg PO TID PRN pain #30 tabs 07/16/22 ibuprofen 600 mg tablet 600 mg PO Q6H PRN pain #20 tabs 07/16/22 metronidazole 500 mg tablet 500 mg PO BID bacterial Vaginosis 07/19/22 7 days #14 tabs lidocaine 5 % topical patch 1 patch topical DAILY #15 ea 08/15/22 naproxen 500 mg tablet 500 mg PO BID PRN pain #20 tabs 08/15/22 <VITO Ayala - Last Filed: 08/15/22 17:31> Allergies/Adverse reactions: Allergies Allergy/AdvReac Type Severity Reaction Status Date / Time No Known Allergies Allergy Verified 03/02/22 20:44 [No Known Allergies*] <VITO Ayala - Last Filed: 08/15/22 17:31> Review of Systems Review of Systems: Yes all other systems are reviewed and are negative <VITO Beavers - Last Filed: 08/15/22 18:21> PMFSH Past Medical History Medical History: Medical History Costochondritis <VITO Ayala - Last Filed: 08/15/22 17:31> Surgical History: Surgical History History of appendectomy [place] teeth extracted <VITO Ayala - Last Filed: 08/15/22 17:31> Social History Social History: Social History Alcohol intake: never Patient Tobacco Use Status: Never used Tobacco Advance Directives: No Advance Directives Information Provided: No Current occupational status: employed 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/ [employer] <VITO Ayala - Last Filed: 08/15/22 17:31> Physical Exam Vital Signs: Vital Signs: Last Vital Signs Temp 97.3 F 08/15/22 17:24 Pulse 93 08/15/22 17:24 Resp 18 08/15/22 17:24 BP 148/93 H 08/15/22 17:24 Pulse Ox 99 08/15/22 17:24 O2 Del Method 08/15/22 17:24 BMI result Body Mass Index 30.2 <VITO Ayala - Last Filed: 08/15/22 17:31> Vital Signs: Last Vital Signs Temp 97.3 F 08/15/22 17:24 Pulse 93 08/15/22 17:24 Resp 18 08/15/22 17:24 BP 148/93 H 08/15/22 17:24 Pulse Ox 99 08/15/22 17:24 O2 Del Method 08/15/22 17:24 BMI result Body Mass Index 30.2 <VITO Beavers - Last Filed: 08/15/22 18:21> Appearance: Alert. Oriented X3. No acute distress. HEENT: normal inspection CVS: Normal heart rate and rhythm. Pulses normal. Respiratory: No respiratory distress. Skin: Skin warm and dry. Normal skin color. Normal skin turgor. No rashes. Extremities: normal inspection left shoulder. tenderness of the AC joint without any palpable separation. pain with passive abduction to 90 degrees. negative empty can test. no posterior tenderness. 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 Neuro: Oriented X 3. No motor deficit. No sensory deficit. <VITO Beavers - Last Filed: 08/15/22 18:21> Course Course Course Narrative: MARY- 17:30PM - 26-year-old female presenting to the ER with complaints of sharp left shoulder pain that started prior to arrival while she was at work. Reports that she wishes typing and went to grab something behind her and since then has been having pain. Reports this has never happened in the past. Denies any other symptoms complaints or concerns at this time. Plan: Left shoulder xray ordered at this time. <VITO Ayala - Last Filed: 08/15/22 17:31> Reevaluation(s) Reevaluation #1: Placed in sling for comfort. PO motrin and tylenol ordered. <VITO Beavers - Last Filed: 08/15/22 18:21> Medications Administered Discontinued Medications Generic Name Dose Route Start Last Admin Trade Name Freq PRN Reason Stop Dose Admin Acetaminophen 975 mg 08/15/22 17:54 08/15/22 18:00 Acetaminophen 325 Mg Tablet PO 08/15/22 17:55 975 mg ONCE ONE Administration Ibuprofen 600 mg 08/15/22 17:54 08/15/22 18:00 Ibuprofen 600 Mg Tablet PO 08/15/22 17:55 600 mg ONCE ONE Administration <VITO Ayala - Last Filed: 08/15/22 17:31> Medications Administered Discontinued Medications Generic Name Dose Route Start Last Admin Trade Name Freq PRN Reason Stop Dose Admin Acetaminophen 975 mg 08/15/22 17:54 08/15/22 18:00 Acetaminophen 325 Mg Tablet PO 08/15/22 17:55 975 mg ONCE ONE Administration Ibuprofen 600 mg 08/15/22 17:54 08/15/22 18:00 Ibuprofen 600 Mg Tablet PO 08/15/22 17:55 600 mg ONCE ONE Administration <VITO Beavers - Last Filed: 08/15/22 18:21> Medical Decision Making Differential Diagnosis Differential Diagnoses: The differential diagnosis associated with the presentation includes <VITO Beavers Last Filed: 08/15/22 18:21> AC joint separation, shoulder strain, shoulder sprain, muscle spasm, torn rotator cuff <VITO Beavers - Last Filed: 08/15/22 18:21> Lab Data Labs: Lab Results 08/15/22 Range/Units 17:49 Urine Test NEGATIVE (NEGATIVE) <VITO Ayala - Last Filed: 08/15/22 17:31> Lab Results 08/15/22 Range/Units 17:49 Urine Test NEGATIVE (NEGATIVE) <VITO Beavers - Last Filed: 08/15/22 18:21> Discharge Plan Discharge Clinical Impression: Acute shoulder pain <VITO Ayala - Last Filed: 08/15/22 17:31> Patient Disposition: Home, Self-Care <VITO Ayala Last Filed: 08/15/22 17:31> Instructions: Shoulder Pain (ED) <VITO Ayala - Last Filed: 08/15/22 17:31> Additional Instructions: Your x-ray today was normal. Use ice to the area several times per day for the next 48 hours then you can change to heat. Wear the sling to rest the shoulder for the next 2 days then start to do gentle range of motion exercises. Take the prescribed anti-inflammatory pain medication as needed for pain. Follow up with your doctor. If you have ongoing pain, recommend following up with Orthopedics for further evaluation and treatment. <VITO Ayala - Last Filed: 08/15/22 17:31> Prescriptions: New lidocaine 5 % adhesive patch,medicated 1 patch topical DAILY Qty: 15 0RF Rx Instructions: leave on most painful area for up to 12 hrs naproxen 500 mg tablet 500 mg PO BID PRN (Reason: pain) Qty: 20 0RF No Action nitrofurantoin monohyd/m-cryst [Macrobid] 100 mg capsule 100 mg PO BID 7 Days Qty: 14 0RF Rx Instructions: must administer with a meal/food phenazopyridine [Pyridium] 100 mg tablet 100 mg PO TID PRN (Reason: pain) Qty: 6 0RF docusate sodium [Colace] 100 mg capsule 100 mg PO BID PRN (Reason: Constipation) Qty: 14 0RF Chocolate Laxative 15 mg tablet,chewable 7.5 mg PO DAILY 5 Days Qty: 3 0RF cyclobenzaprine 10 mg tablet 10 mg PO TID PRN (Reason: muscle spasm) Qty: 14 0RF promethazine 25 mg suppository 25 mg MS Q6H PRN (Reason: nausea and vomiting) Qty: 12 0RF naproxen 500 mg tablet 500 mg PO BID PRN (Reason: pain) 10 Days Qty: 20 0RF prednisone 20 mg tablet 40 mg PO DAILY 5 Days Qty: 10 0RF ondansetron 4 mg tablet,disintegrating 4 mg PO ONCE PRN (Reason: nausea and vomiting) Qty: 10 0RF acetaminophen 500 mg tablet 1,000 mg PO TID PRN (Reason: pain) Qty: 30 0RF ibuprofen 600 mg tablet 600 mg PO Q6H PRN (Reason: pain) Qty: 20 0RF metronidazole 500 mg tablet 500 mg PO BID 7 Days Qty: 14 0RF <VITO Ayala - Last Filed: 08/15/22 17:31> Referrals: [facility] [Provider Group] <VITO Ayala - Last Filed: 08/15/22 17:31> Stand Alone Forms: Work/School Release <VITO Ayala - Last Filed: 08/15/22 17:31>
[2022-08-15 17:57] LABS: UPreg QC Valid YES; Urine Pregnancy NEGATIVE (NEGATIVE)
[2022-08-15] MEDS: Acetaminophen 325 MG TABLET 975 MG PO (18:00)
[2022-08-15] MEDS: Ibuprofen 600 MG TABLET PO (18:00)
== END 2022-08-15 19:12 | disposition home or self-care (01) ==
PROVIDERS: Physician Assistant; Emergency Provider Emergency Medicine Emergency Medical Services
DX: Z04.2 Encounter for examination and observation following work accident (principal); G89.11 Acute pain due to trauma; M25.512 Pain in left shoulder
CPT/HCPCS: 73030; 81025; 99283

== ENCOUNTER 2023-06-16 10:28 | Emergency (ER) | payer OTHER, SELFPAY ==
[2023-06-16 10:41] VITALS: BP 133/98; PULSE 118; RESP 18; TEMP 37.9; O2SAT 97; BMI 31.5
[2023-06-16 11:14] LABS: IDNOW Serial# 08D9AD1C; Strep A Nucleic Acid Positive (Negative)
[2023-06-16] MEDS: Ibuprofen 600 MG TABLET PO (11:28)
--- NOTE | 2023-06-16 11:30 | ED_ITS ---
HPI - General Adult General Chief complaint: Upper Respiratory Symptoms Stated complaint: Sore throat Time Seen by Provider: 06/16/23 10:58 Source: patient and RN notes reviewed Mode of arrival: ambulatory Limitations: no limitations History of Present Illness HPI narrative: This is a 27-year-old female presenting to the emergency department complaints of sore throat, and fevers since last night. Patient reports that she is still able to swallow however reports left-side of her throat hurts more right. Reports pain radiates into her left ear. She took Tylenol at 2:00 a.m. this morning after having a fever of 101. Denies any chest pain, shortness breath, cough, abdominal pain common nausea, vomiting or diarrhea. Patient reports son was sick with a cold recently. No other complaints or concerns at this time. MD complaint: Sore throat Onset (ago): day(s) Radiation: non-radiation Severity: moderate Quality: aching Pain Consistency: constant Relieving factors: none Exacerbating factors: none Associated symptoms: denies other symptoms Treatments prior to arrival: other ( Tylenol at 2 a.m.) Related Data Previous Rx's Medication Instructions Recorded docusate sodium 100 mg capsule 100 mg PO BID PRN Constipation #14 03/14/21 (Colace) caps nitrofurantoin 100 mg PO BID 7 days #14 caps 03/14/21 monohydrate/macrocrystals 100 mg capsule (Macrobid) phenazopyridine 100 mg tablet 100 mg PO TID PRN pain 6 doses #6 03/14/21 (Pyridium) tabs sennosides 15 mg chewable tablet 7.5 mg (1/2 x 15 mg) PO DAILY 03/14/21 (Chocolate Laxative) Constipation 5 days #3 tabs cyclobenzaprine 10 mg tablet 10 mg PO TID PRN muscle spasm #14 05/12/21 tabs promethazine 25 mg rectal 25 mg [place] Q6H PRN nausea and 05/12/21 suppository vomiting #12 ea naproxen 500 mg tablet 500 mg PO BID PRN pain 10 days #20 08/06/21 tabs prednisone 20 mg tablet 40 mg (2 x 20 mg) PO DAILY 5 days 08/06/21 #10 tabs ondansetron 4 mg disintegrating 4 mg PO ONCE PRN nausea and 08/06/22 tablet vomiting #10 tabs acetaminophen 500 mg tablet 1,000 mg (2 x 500 mg) PO TID PRN 07/16/22 pain #30 tabs ibuprofen 600 mg tablet 600 mg PO Q6H PRN pain #20 tabs 07/16/22 metronidazole 500 mg tablet 500 mg PO BID bacterial Vaginosis 07/19/22 7 days #14 tabs lidocaine 5 % topical patch 1 patch topical DAILY #15 ea 08/15/22 naproxen 500 mg tablet 500 mg PO BID PRN pain #20 tabs 08/15/22 acetaminophen 500 mg tablet 500 mg PO Q6H PRN fever or pain 06/16/23 (Tylenol Extra Strength) #30 tabs amoxicillin 500 mg tablet 500 mg PO BID 10 days #20 tabs 06/16/23 ibuprofen 600 mg tablet 600 mg PO Q6H PRN fever or pain 06/16/23 #30 tabs phenol 1.4 % mucosal aerosol spray 1 spray mucous membrane Q4H PRN 06/16/23 (Oral Relief Sore Throat [place]) sore throat #177 mL Allergies Allergy/AdvReac Type Severity Reaction Status Date / Time No Known Allergies Allergy Verified 06/16/23 10:41 [No Known Allergies*] Review of Systems Review of Systems: Yes all other systems are reviewed and are negative Constitutional: Constitutional: Reports as per [facility] Past Medical History Attestation statement: The following information was validated with the patient. 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 Uvula is midline. No trismus, drooling or dysphonia. No cervical lymphadenopathy. Able to open and close jaw without difficulty. Head: Yes normal to inspection, Yes normocephalic and Yes atraumatic Ears: hearing grossly normal bilaterally and other ( TMs obscured by cerumen ) General nose exam: Normal external nose present Face and sinus: Yes normal facial exam Throat: Yes posterior oropharynx normal Eyes General: appearance normal, both eyes and all related structures Eyelids: Yes eyelids normal Conjunctivae: conjunctivae normal Sclerae: sclerae normal Pupils: Equal, round and reactive pupils present EOM: EOMs intact bilaterally Neck Neck: Yes normal visual inspection, Yes full ROM and Yes no lymphadenopathy Lymphatic: no lymphadenopathy noted Chest Chest palpation & inspection: normal inspection of the chest Resp Effort & Inspection: normal respiratory effort and able to speak in complete sentences Auscultation: clear to auscultation bilaterally, no crackles, no rales, no rhonchi and no wheezes Cardio Rate: regular rate Rhythm: regular rhythm Heart sounds: S1 normal heart sound present and S2 normal heart sound present GI Inspection: Yes normal to inspection Skin General skin exam: no rashes or lesions noted Trauma: no lacerations or abrasions Wounds: no wounds Neuro General: patient oriented x3 and moves all extremities Cranial nerves: Yes Equal, round and reactive pupils present Extrem General: Yes normal to inspection Right upper extremity: normal to inspection Left upper extremity: normal to inspection Right lower extremity: normal to inspection Left lower extremity: normal to inspection Course Reevaluation(s) Reevaluation #1: Patient tested positive for strep throat, COVID, flu, and RSV negative. given 1st dose of amoxicillin apartment. Patient feeling well, ready for discharge. Medicated with Motrin, and 1st dose of amoxicillin in the department. Given return precautions. Patient stable for discharge. Time: 11:44 Medications Administered Discontinued Medications Generic Name Dose Route Start Last Admin Trade Name Freq PRN Reason Stop Dose Admin Ibuprofen 600 mg 06/16/23 11:20 06/16/23 11:28 Ibuprofen 600 Mg Tablet PO 06/16/23 11:21 600 mg ONCE ONE Administration Medical Decision Making Medical Decision Making MDM Narrative: this is a 27-year-old female presenting to the emergency department for evaluation of sore throat and fever since yesterday. On arrival, patient afebrile, pulse 118. Oral mucosa is erythematous with tonsillar hypertrophy, no exudates. Patient without trismus, drooling, or dysphonia. Uvula is midline. Labs were obtained, positive for strep throat. Will treat with course of amox icillin, given 1st dose in department. Advised to drink plenty of fluids get plenty of rest, tachycardia improved to 106, likely slight dehydration as patient admits that she is not drinking fluids. Educated the importance of staying well hydrated especially with this infection. Given return precautions if any new or worsening symptoms occur. Patient understands and agrees with plan. Patient stable for discharge. Differential Diagnosis Differential Diagnoses: The differential diagnosis associated with the presentation includes Strep pharyngitis, tonsillitis, uvulitis, peritonsillar abscess Lab Data MDM Lab Attestation statement: I reviewed the patient's lab results. Labs: Lab Results 06/16/23 Range/Units 10:56 Influenza Type A (PCR) NEGATIVE (Negative) Influenza Type B (PCR) NEGATIVE (Negative) RSV RNA Qual (PCR) NEGATIVE (Negative) SARS-CoV-2 RNA (RT-PCR) NEGATIVE (Negative) S. pyogenes GrpA ALFONZO Positive A (Negative) Discharge Plan Discharge Clinical Impression: Acute streptococcal pharyngitis Patient Disposition: Home, Self-Care Instructions: Strep Throat (ED) Additional Instructions: You tested positive for strep throat. this is a bacterial infection which you need a course of antibiotics for, for treatment. Please drink plenty of fluids and get plenty of rest. Take ibuprofen and Tylenol as needed for fevers and pain. I am also giving you a throat spray to help numb your throat, use this as needed. Popsicles and cold foods can help decrease the inflammation. Throw away your toothbrush after completing course of antibiotics. Please return if you are unable to swallow, or your symptoms are worsening. If any new or worsening symptoms occur, please return for re-evaluation Prescriptions: New amoxicillin 500 mg tablet 500 mg PO BID 10 Days Qty: 20 0RF acetaminophen [Tylenol Extra Strength] 500 mg tablet 500 mg PO Q6H PRN (Reason: fever or pain) Qty: 30 0RF ibuprofen 600 mg tablet 600 mg PO Q6H PRN (Reason: fever or pain) Qty: 30 0RF Oral Relief Sore Throat [place] 1.4 % aerosol,spray 1 spray mucous membrane Q4H PRN (Reason: sore throat) Qty: 177 0RF No Action nitrofurantoin monohyd/m-cryst [Macrobid] 100 mg capsule 100 mg PO BID 7 Days Qty: 14 0RF Rx Instructions: must administer with a meal/food phenazopyridine [Pyridium] 100 mg tablet 100 mg PO TID PRN (Reason: pain) Qty: 6 0RF docusate sodium [Colace] 100 mg capsule 100 mg PO BID PRN (Reason: Constipation) Qty: 14 0RF Chocolate Laxative 15 mg tablet,chewable 7.5 mg PO DAILY 5 Days Qty: 3 0RF cyclobenzaprine 10 mg tablet 10 mg PO TID PRN (Reason: muscle spasm) Qty: 14 0RF promethazine 25 mg suppository 25 mg OR Q6H PRN (Reason: nausea and vomiting) Qty: 12 0RF naproxen 500 mg tablet 500 mg PO BID PRN (Reason: pain) 10 Days Qty: 20 0RF prednisone 20 mg tablet 40 mg PO DAILY 5 Days Qty: 10 0RF ondansetron 4 mg tablet,disintegrating 4 mg PO ONCE PRN (Reason: nausea and vomiting) Qty: 10 0RF lidocaine 5 % adhesive patch,medicated 1 patch topical DAILY Qty: 15 0RF Rx Instructions: leave on most painful area for up to 12 hrs naproxen 500 mg tablet 500 mg PO BID PRN (Reason: pain) Qty: 20 0RF acetaminophen 500 mg tablet 1,000 mg PO TID PRN (Reason: pain) Qty: 30 0RF ibuprofen 600 mg tablet 600 mg PO Q6H PRN (Reason: pain) Qty: 20 0RF metronidazole 500 mg tablet 500 mg PO BID 7 Days Qty: 14 0RF
[2023-06-16 11:41] LABS: Influenza A PCR NEGATIVE (Negative); Influenza B PCR NEGATIVE (Negative); Resp Syncy Virus RNA Qual PCR NEGATIVE (Negative); SARS COV2 PCR INHOUSE NEGATIVE (Negative)
[2023-06-16] MEDS: Amoxicillin 500 MG CAPSULE PO (12:01)
[2023-06-16 12:03] VITALS: BP 119/82; PULSE 106; RESP 20; TEMP 37.9; O2SAT 96
== END 2023-06-16 12:07 | disposition home or self-care (01) ==
PROVIDERS: Emergency Provider Emergency Medicine
DX: J02.0 Streptococcal pharyngitis (principal); Z20.822 Contact with and (suspected) exposure to COVID-19; Z20.828 Contact with and (suspected) exposure to other viral communicable diseases
CPT/HCPCS: 0241U; 87651; 99283

== ENCOUNTER 2023-07-03 12:29 | Emergency (ER) | payer OTHER, SELFPAY ==
--- NOTE | ~2023-07-03 | XR_ITS ---
EXAMINATION: XR CHEST CLINICAL INFORMATION: SOB and cough. COMPARISON: X-ray chest 03/12/2022 TECHNIQUE: 2 views of the chest were obtained. FINDINGS: No significant abnormality is noted involving the heart, lungs, mediastinum, bony thorax or soft tissues. XR/XR chest 2V IMPRESSION: Unremarkable chest examination.
[2023-07-03 13:47] VITALS: BP 147/90; PULSE 92; RESP 18; TEMP 37.2; O2SAT 99; BMI 31.5
--- NOTE | 2023-07-03 13:51 | ED_ITS ---
HPI - General Adult General Chief complaint: Upper Respiratory Symptoms Stated complaint: SOB Ach[place] Time Seen by Provider: 07/03/23 17:51 Source: patient Mode of arrival: ambulatory Limitations: no limitations History of Present Illness HPI narrative: Patient is a 27 year old assigned female at with no reported medical history presenting to the emergency department today with a cough. Patient states that over the last 24 hours she has had a cough and felt generally unwell. Patient denies any dizziness, lightheadedness, abdominal pain, nausea, vomiting, fever, chills, blurry vision, double vision, loss of vision, chest pain, difficulty breathing, shortness of breath, back pain, night sweats, pain with urination, increased urinary frequency, increased urinary urgency, blood in her urine or stool, syncope or a near syncopal episode, recent trauma or falls, bowel incontinence, bladder incontinence, bowel retention, bladder retention, or any other complaints at this time. Onset (ago): day(s) (1) Severity: mild Severity scale (1-10): 3 Relieving factors: none Exacerbating factors: none Associated symptoms: cough Treatments prior to arrival: none Related Data Previous Rx's Medication Instructions Recorded docusate sodium 100 mg capsule 100 mg PO BID PRN Constipation #14 03/14/21 (Colace) caps nitrofurantoin 100 mg PO BID 7 days #14 caps 03/14/21 monohydrate/macrocrystals 100 mg capsule (Macrobid) phenazopyridine 100 mg tablet 100 mg PO TID PRN pain 6 doses #6 03/14/21 (Pyridium) tabs sennosides 15 mg chewable tablet 7.5 mg (1/2 x 15 mg) PO DAILY 03/14/21 (Chocolate Laxative) Constipation 5 days #3 tabs cyclobenzaprine 10 mg tablet 10 mg PO TID PRN muscle spasm #14 05/12/21 tabs promethazine 25 mg rectal 25 mg WA Q6H PRN nausea and 05/12/21 suppository vomiting #12 ea naproxen 500 mg tablet 500 mg PO BID PRN pain 10 days #20 08/06/21 tabs prednisone 20 mg tablet 40 mg (2 x 20 mg) PO DAILY 5 days 08/06/21 #10 tabs ondansetron 4 mg disintegrating 4 mg PO ONCE PRN nausea and 03/03/22 tablet vomiting #10 tabs acetaminophen 500 mg tablet 1,000 mg (2 x 500 mg) PO TID PRN 07/16/22 pain #30 tabs ibuprofen 600 mg tablet 600 mg PO Q6H PRN pain #20 tabs 07/16/22 metronidazole 500 mg tablet 500 mg PO BID bacterial Vaginosis 07/19/22 7 days #14 tabs lidocaine 5 % topical patch 1 patch topical DAILY #15 ea 08/15/22 naproxen 500 mg tablet 500 mg PO BID PRN pain #20 tabs 08/15/22 acetaminophen 500 mg tablet 500 mg PO Q6H PRN fever or pain 06/16/23 (Tylenol Extra Strength) #30 tabs amoxicillin 500 mg tablet 500 mg PO BID 10 days #20 tabs 06/16/23 ibuprofen 600 mg tablet 600 mg PO Q6H PRN fever or pain 06/16/23 #30 tabs phenol 1.4 % mucosal aerosol spray 1 spray mucous membrane Q4H PRN 06/16/23 (Oral Relief Sore Throat [place]) sore throat #177 mL Allergies Allergy/AdvReac Type Severity Reaction Status Date / Time No Known Allergies Allergy Verified 06/16/23 10:41 [No Known Allergies*] Review of Systems Constitutional: Constitutional: Reports no additional constitutional complaints, Reports body ache(s), Denies chills, Denies fever(s) and Denies night sweats Eyes: Eyes: Reports no additional eye complaints, Denies blurry vision, Denies change in vision, Denies diplopia, Denies eye discharge, Denies loss of vision and Denies eye pain ENT: Denies dizziness Cardiovascular: Cardiovascular: Reports no additional cardiovascular complaints, Denies chest pain, Denies lightheadedness, Denies Loss of C onsciousness and Denies dyspnea Respiratory: Respiratory: Reports no additional respiratory complaints, Reports cough and Denies dyspnea Gastrointestinal: Gastrointestinal: Reports no additional gastrointestinal complaints, Denies abdominal pain, Denies melena, Denies hematochezia, Denies ch leana in bowel habits and Denies change in stool character Genitourinary: Genitourinary: Denies hematuria, Denies urinary frequency, Denies dysuria, Denies urinary incontinence, Denies urinary hesitancy and Denies urinary urgency Musculoskeletal: Musculoskeletal: Reports no additional musculoskeletal complaints, Denies numbness and Denies tingling Neurologic: Denies dizziness, Denies loss of vision, Denies numbness and Denies tingling Psychiatric: Psychiatric: Reports no additional psychiatric complaints Endocrine: Endocrine: Reports no additional endocrine complaints Hematologic/Lymphatic: Hematologic/Lymphatic: Reports no additional hematologic/lymphatic complaints Allergic/Immunologic: Allergic/Immunologic: Reports no additional allergic/immunologic complaints [facility] Past Medical History Attestation statement: The following information was validated with the patient. 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/ [employer] Physical Exam ED Vital Signs: Vital Signs - 24 hr 07/03/23 13:47 07/03/23 18:00 Temperature 98.9 F Pulse Rate 92 99 Respiratory Rate 18 18 Blood Pressure 147/90 H Pulse Oximetry 99 98 Oxygen Delivery Method Room Air Room Air BMI result Body Mass Index 31.5 Const General: cooperative, no acute distress, alert and awake Nutritional Appearance: well nourished Orientation/consciousness: patient oriented x3 Limitations: no limitations [facility] Head: Yes normal to inspection and Yes atraumatic Ears: hearing grossly normal bilaterally and external ears normal General nose exam: Normal external nose present, no nasal discharge noted and no epistaxis Face and sinus: Yes normal facial exam, No abrasion and No laceration Mouth: Normal oral and palatal mucosa present, no drooling and no muffled voice Eyes General: appearance normal, both eyes and all related structures Periorbital: periorbital findings normal Eyelids: Yes eyelids normal Conjunctivae: conjunctivae normal Pupils: Equal, round and reactive pupils present EOM: EOMs intact bilaterally Neck Neck: Yes normal visual inspection, Yes full ROM and Yes no lymphadenopathy Chest Chest palpation & inspection: normal inspection of the chest Resp Effort & Inspection: normal respiratory effort and able to speak in complete sentences GI Inspection: Yes normal to inspection Neuro General: patient oriented x3 and moves all extremities Cranial nerves: Yes Equal, round and reactive pupils present Cognition (Neuro): normal cognition Motor exam (neuro): 5/5 motor strength present throughout Sensory Exam: Normal double simultaneous stimulation for sensation Coordination: [id number] test normal Extrem General: Yes normal to inspection, Yes full ROM and Yes capillary refill normal Psych Appearance: grossly normal Mental Status: mental status grossly normal Affect: normal affect Attitude: cooperative Thought process: Normal thought process present Thought content: Normal thought content present Insight: Good insight present (Psych) Course Course Course Narrative: This is an RME: Additional HPI, ROS, PE not included below will be deferred to primary provider. This is a 27-year-old female presenting to the emergency department with complaints of right-sided facial pain, cough, congestion, shortness of breath x 1 day. On arrival, patient nontoxic appearing, lungs are clear to auscultation bilaterally. Child is tested positive for RSV. Plan: COVID, UA, U preg, chest x-ray Medications Administered Discontinued Medications Generic Name Dose Route Start Last Admin Trade Name Freq PRN Reason Stop Dose Admin Dexamethasone Sodium Phosphate 10 mg 07/03/23 17:54 07/03/23 18:04 Dexamethasone Sod Phosphate 10 Mg/Ml Vial PO 07/03/23 17:55 10 mg ONCE ONE Administration Medical Decision Making Medical Decision Making [facility] Narrative: Patient is a 27 year old assigned female at with no reported medical history presenting to the emergency department today with a cough and body aches. Patient's physical exam was unremarkable. Patient's COVID-19 test was positive. Patient's influenza and RSV tests were negative. Patienet's urine showed no acute process. Patient's chest x-ray showed no acute process. I explained my physical exam findings as well as all test results to the patient. I answered all questions asked by the patient. I stressed the importance of the patient taking her medication as prescribed. I stressed the importance of the patient following up with her primary care provider. I stressed the importance of the patient returning to the emergency department immediately if her symptoms were to worsen or if she were to develop any dizziness, shortness of breath, difficulty breathing, chest pain, blurry vision, loss of vision, nausea, vomiting, abdominal pain, fever, chills, back pain, or any other complaints. Patient verbalized agreement and understanding with this treatment plan and discharge. Differential Diagnosis Differential Diagnoses: The differential diagnosis associated with the presentation includes COVID-19 Influenza RSV URI Admission/Observation Consideration of admission/observation: Escalation of care including admission/observation considered Patient would have been admitted to the hospital had her work up had any findings where hospital admission was appropriate and her clinical presentation warranted hospital admission. Lab Data [facility] Lab Attestation statement: I reviewed the patient's lab results. My interpretation of these results are in the [facility] Rationale portion of this note. Labs: Lab Results 07/03/23 Range/Units 16:28 Urine Color Yellow Urine Appearance Clear Urine pH 7.5 (5.0-9.0) Ur Specific [place] 1.015 (1.005-1.025) Urine Protein Negative (Neg-Trace) mg/dL Urine Glucose (UA) Negative (Negative) mg/dL Urine Ketones Negative (Negative) mg/dL Urine Blood Negative (Negative) Urine Nitrite Negative (Negative) Ur Leukocyte Esterase Negative (Negative) Urine Test NEGATIVE (NEGATIVE) Influenza Type A (PCR) NEGATIVE (Negative) Influenza Type B (PCR) NEGATIVE (Negative) RSV RNA Qual (PCR) NEGATIVE (Negative) SARS-CoV-2 RNA (RT-PCR) POSITIVE A (Negative) Independent Interpretation I performed an independent interpretation of an: Plain X-Ray Interpretation: My interpretation is in agreement with the radiologist's impression of this imaging study. EXAMINATION: XR CHEST CLINICAL INFORMATION: SOB and cough. COMPARISON: X-ray chest 03/12/2022 TECHNIQUE: 2 views of the chest were obtained. FINDINGS: No significant abnormality is noted involving the heart, lungs, mediastinum, bony thorax or soft tissues. XR/XR chest 2V IMPRESSION: Unremarkable chest examination. Dictated By: Juan Helm MD Signed By: Electronically signed by Juan Helm MD 07/03/23 1500 Radiology Impression Discussion of test interpretation with radiology: I have reviewed the radiologist's reading. Discharge Plan Discharge Clinical Impression: COVID-19 Patient Disposition: Home, Self-Care Instructions: COVID-19 (Coronavirus Disease 2019) (ED) Additional Instructions: Follow up with your primary care provider. Return to the emergency department immediately if your symptoms worsen or if you develop any dizziness, shortness of breath, difficulty breathing, chest pain, blurry vision, loss of vision, nausea, vomiting, abdominal pain, fever, chills, back pain, or any other complaints. Prescriptions: No Action nitrofurantoin monohyd/m-cryst [Macrobid] 100 mg capsule 100 mg PO BID 7 Days Qty: 14 0RF Rx Instructions: must administer with a meal/food phenazopyridine [Pyridium] 100 mg tablet 100 mg PO TID PRN (Reason: pain) Qty: 6 0RF docusate sodium [Colace] 100 mg capsule 100 mg PO BID PRN (Reason: Constipation) Qty: 14 0RF Chocolate Laxative 15 mg tablet,chewable 7.5 mg PO DAILY 5 Days Qty: 3 0RF cyclobenzaprine 10 mg tablet 10 mg PO TID PRN (Reason: muscle spasm) Qty: 14 0RF promethazine 25 mg suppository 25 mg WA Q6H PRN (Reason: nausea and vomiting) Qty: 12 0RF naproxen 500 mg tablet 500 mg PO BID PRN (Reason: pain) 10 Days Qty: 20 0RF prednisone 20 mg tablet 40 mg PO DAILY 5 Days Qty: 10 0RF ondansetron 4 mg tablet,disintegrating 4 mg PO ONCE PRN (Reason: nausea and vomiting) Qty: 10 0RF lidocaine 5 % adhesive patch,medicated 1 patch topical DAILY Qty: 15 0RF Rx Instructions: leave on most painful area for up to 12 hrs naproxen 500 mg tablet 500 mg PO BID PRN (Reason: pain) Qty: 20 0RF acetaminophen 500 mg tablet 1,000 mg PO TID PRN (Reason: pain) Qty: 30 0RF ibuprofen 600 mg tablet 600 mg PO Q6H PRN (Reason: pain) Qty: 20 0RF metronidazole 500 mg tablet 500 mg PO BID 7 Days Qty: 14 0RF amoxicillin 500 mg tablet 500 mg PO BID 10 Days Qty: 20 0RF acetaminophen [Tylenol Extra Strength] 500 mg tablet 500 mg PO Q6H PRN (Reason: fever or pain) Qty: 30 0RF ibuprofen 600 mg tablet 600 mg PO Q6H PRN (Reason: fever or pain) Qty: 30 0RF Oral Relief Sore Throat [place] 1.4 % aerosol,spray 1 spray mucous membrane Q4H PRN (Reason: sore throat) Qty: 177 0RF Referrals: [facility] [place] [facility] [place] [Provider Group] (Call to establish and follow up with a primary care provider. If you already have a primary care provider, please follow up with them.) [facility] [place] [place] [facility] [place] [facility], [place] [Provider Group] (Call to establish and follow up with a primary care provider. If you already have a primary care provider, please follow up with them.) [facility] [place] [place] [facility] [place] [facility],[place] [Provider Group] (Call to establish and follow up with a primary care provider. If you already have a primary care provider, please follow up with them.) Stand Alone Forms: Work/School Release Interventions: ED Discharge Assessment Last Done: 07/03/23 18:08 Discharge Date/Time: 07/03/23 18:09 Print Language: Sen[place]e
[2023-07-03 16:37] LABS: UPreg QC Valid YES; Urine Pregnancy NEGATIVE (NEGATIVE)
[2023-07-03 16:38] LABS: Appearance Urine Clear; Color Urine Yellow; Glucose Urine UA Negative (Negative); Leukocyte Esterase Urine Negative (Negative); Nitrite Urine Negative (Negative); PH 7.5 (5.0-9.0); Specific Gravity - Urine 1.015 (1.005-1.025); Urine Blood Negative (Negative); Urine Ketones Negative (Negative); Urine Protein Negative (Neg-Trace)
[2023-07-03 17:19] LABS: Influenza A PCR NEGATIVE (Negative); Influenza B PCR NEGATIVE (Negative); Resp Syncy Virus RNA Qual PCR NEGATIVE (Negative); SARS COV2 PCR INHOUSE POSITIVE (Negative)
[2023-07-03 18:00] VITALS: PULSE 99; RESP 18; O2SAT 98
[2023-07-03] MEDS: dexAMETHasone sod phosphate 10 MG/ML VIAL PO (18:04)
== END 2023-07-03 18:09 | disposition home or self-care (01) ==
PROVIDERS: Physician Assistant Medical; Emergency Provider Internal Medicine
DX: U07.1 COVID-19 (principal); R06.02 Shortness of breath
CPT/HCPCS: 0241U; 71046; 81003; 81025; 99283; J1100

== ENCOUNTER 2023-10-07 10:32 | Emergency (ER) | payer OTHER, SELFPAY ==
[2023-10-07 10:48] VITALS: BP 124/90; PULSE 98; RESP 18; TEMP 36.6; O2SAT 98; BMI 31.7
--- NOTE | 2023-10-07 11:18 | ED_ITS ---
HPI - General Adult General Chief complaint: General Medical Stated complaint: vomiting Time Seen by Provider: 10/07/23 11:18 Source: patient Mode of arrival: ambulatory Limitations: no limitations History of Present Illness HPI narrative: Patient is a 27 year old assigned female at with no reported medical history presenting to the emergency department today with body aches, nausea, and vomiting. Patient states that starting this morning she began to have body aches with nausea and vomiting. Patient denies any dizziness, lightheadedness, abdominal pain, fever, chills, blurry vision, double vision, loss of vision, chest pain, difficulty breathing, shortness of breath, back pain, night sweats, pain with urination, increased urinary frequency, increased urinary urgency, blood in her urine or stool, syncope or a near syncopal episode, recent trauma or falls, bowel incontinence, bladder incontinence, bowel retention, bladder retention, or any other complaints at this time. Onset (ago): hour(s) Relieving factors: none Exacerbating factors: none Associated symptoms: nausea/vomiting Treatments prior to arrival: none Related Data Previous Rx's Medication Instructions Recorded docusate sodium 100 mg capsule 100 mg PO BID PRN Constipation #14 03/14/21 (Colace) caps nitrofurantoin 100 mg PO BID 7 days #14 caps 03/14/21 monohydrate/macrocrystals 100 mg capsule (Macrobid) phenazopyridine 100 mg tablet 100 mg PO TID PRN pain 6 doses #6 03/14/21 (Pyridium) tabs sennosides 15 mg chewable tablet 7.5 mg (1/2 x 15 mg) PO DAILY 03/14/21 (Chocolate Laxative) Constipation 5 days #3 tabs cyclobenzaprine 10 mg tablet 10 mg PO TID PRN muscle spasm #14 05/12/21 tabs promethazine 25 mg rectal 25 mg IN Q6H PRN nausea and 05/12/21 suppository vomiting #12 ea naproxen 500 mg tablet 500 mg PO BID PRN pain 10 days #20 08/06/21 tabs prednisone 20 mg tablet 40 mg (2 x 20 mg) PO DAILY 5 days 08/06/21 #10 tabs ondansetron 4 mg disintegrating 4 mg PO ONCE PRN nausea and 03/03/22 tablet vomiting #10 tabs acetaminophen 500 mg tablet 1,000 mg (2 x 500 mg) PO TID PRN 07/16/22 pain #30 tabs ibuprofen 600 mg tablet 600 mg PO Q6H PRN pain #20 tabs 07/16/22 metronidazole 500 mg tablet 500 mg PO BID bacterial Vaginosis 07/19/22 7 days #14 tabs lidocaine 5 % topical patch 1 patch topical DAILY #15 ea 08/15/22 naproxen 500 mg tablet 500 mg PO BID PRN pain #20 tabs 08/15/22 acetaminophen 500 mg tablet 500 mg PO Q6H PRN fever or pain 06/16/23 (Tylenol Extra Strength) #30 tabs amoxicillin 500 mg tablet 500 mg PO BID 10 days #20 tabs 06/16/23 ibuprofen 600 mg tablet 600 mg PO Q6H PRN fever or pain 06/16/23 #30 tabs phenol 1.4 % mucosal aerosol spray 1 spray mucous membrane Q4H PRN 06/16/23 (Oral Relief Sore Throat [place]) sore throat #177 mL ondansetron 4 mg disintegrating 4 mg PO Q8H 3 days #9 tabs 10/07/23 tablet Allergies Allergy/AdvReac Type Severity Reaction Status Date / Time No Known Allergies Allergy Verified 10/07/23 10:48 [No Known Allergies*] Review of Systems 2 Constitutional: Constitutional: Reports no additional constitutional complaints, Reports body ache(s), Denies chills, Denies fever(s) and Denies night sweats Eyes: Eyes: Reports no additional eye complaints, Denies blurry vision, Denies change in vision, Denies diplopia, Denies eye discharge, Denies loss of vision and Denies eye pain ENT: Denies dizziness Cardiovascular: Cardiovascular: Reports no additional cardiovascular complaints, Denies chest pain, Denies lightheadedness, Denies Loss of Consciousness and Denies dyspnea Respiratory: Respiratory: Reports no additional respiratory complaints and Denies dyspnea Gastrointestinal: Gastrointestinal: Reports no additional gastrointestinal complaints, Denies abdominal pain, Denies melena, Denies hematochezia, Denies change in bowel habits, Denies change in stool character, Reports nausea and Reports vomiting Genitourinary: Genitourinary: Denies hematuria, Denies urinary frequency, Denies dysuria, Denies urinary incontinence, Denies urinary hesitancy and Denies urinary urgency Musculoskeletal: Musculoskeletal: Reports no additional musculoskeletal complaints, Denies numbness and Denies tingling Neurologic: Denies dizziness, Denies loss of vision, Denies numbness and Denies tingling Psychiatric: Psychiatric: Reports no additional psychiatric complaints Endocrine: Endocrine: Reports no additional endocrine complaints Hematologic/Lymphatic: Hematologic/Lymphatic: Reports no additional hematologic/lymphatic complaints Allergic/Immunologic: Allergic/Immunologic: Reports no additional allergic/immunologic complaints PMFSH Past Medical History Attestation statement: The following information was validated with the patient. Source: old records reviewed and nursing notes reviewed Medical History COVID-19 Pelvic pain Numbness and tingling in right hand Right wrist tendinitis COVID-19 ruled out by laboratory testing Costochondritis Surgical History [place] teeth extracted History of appendectomy Social History Social History Alcohol intake: never Patient Tobacco Use Status: Never used Tobacco Smoked in Last 30 Days: No Use of substances other than those prescribed or required for medical reasons: No Advance Directives: No Advance Directives Information Provided: No Patient : No Current occupational status: employed 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/ [employer] Physical Exam ED Vital Signs: Vital Signs - 24 hr 10/07/23 10:48 10/07/23 14:56 Temperature 98 F 98.2 F Pulse Rate 98 100 Respiratory Rate 18 16 Blood Pressure 124/90 H 109/71 Pulse Oximetry 98 99 Oxygen Delivery Method Room Air Room Air BMI result Body Mass Index 31.7 Const General: cooperative, no acute distress, alert and awake Nutritional Appearance: well nourished Orientation/consciousness: patient oriented x3 Limitations: no limitations HENMT Head: Yes normal to inspection and Yes atraumatic Ears: hearing grossly normal bilaterally and external ears normal General nose exam: Normal external nose present, no nasal discharge noted and no epistaxis Face and sinus: Yes normal facial exam, No abrasion and No laceration Mouth: Normal oral and palatal mucosa present, no drooling and no muffled voice Eyes General: appearance normal, both eyes and all related structures Periorbital: periorbital findings normal Eyelids: Yes eyelids normal Conjunctivae: conjunctivae normal Pupils: Equal, round and reactive pupils present EOM: EOMs intact bilaterally Neck Neck: Yes normal visual inspection, Yes full ROM and Yes no lymphadenopathy Chest Chest palpation & inspection: normal inspection of the chest Resp Effort & Inspection: normal respiratory effort and able to speak in complete sentences GI Inspection: Yes normal to inspection Palpation (GI): Soft to palpation, not firm, nontender, no guarding and not rigid Neuro General: patient oriented x3 and moves all extremities Cranial nerves: Yes Equal, round and reactive pupils present Cognition (Neuro): normal cognition Motor exam (neuro): 5/5 motor strength present throughout Sensory Exam: Normal double simultaneous stimulation for sensation Coordination: [id number] test normal Extrem General: Yes normal to inspection, Yes full ROM and Yes capillary refill normal Psych Appearance: grossly normal Mental Status: mental status grossly normal Affect: normal affect Attitude: cooperative Thought process: Normal thought process present Thought content: Normal thought content present Insight: Good insight present (Psych) Medications Administered Discontinued Medications Generic Name Dose Route Start Last Admin Trade Name Freq PRN Reason Stop Dose Admin Sodium Chloride 1,000 mls @ 999 mls/hr 10/07/23 11:45 10/07/23 12:04 Ns IV 10/07/23 12:45 999 mls/hr .Q1H1M DENIS Administration Morphine Sulfate 4 mg 10/07/23 11:59 10/07/23 12:05 Morphine Sulfate 4 Mg/Ml Cartridge IVPUSH 10/07/23 12:00 4 mg ONCE ONE Administration Protocol Ondansetron HCl 4 mg 10/07/23 11:44 10/07/23 12:06 Ondansetron Hcl 4 Mg/2 Ml Vial IVPUSH 10/07/23 11:45 4 mg ONCE ONE Administration Medical Decision Making Medical Decision Making [facility] Narrative: Patient is a 27 year old assigned female at with no reported medical history presenting to the emergency department today with body aches, nausea, and vomiting. Patient's physical exam was unremarkable. Patient's blood work was unremarkable. Patient's urine showed no acute process. Patient's COVID-19, influenza, and RSV tests were negative. I explained my physical exam findings as well as all test results to the patient. I answered all questions asked by the patient. Patient received IV fluids and pain medication which she stated helped her symptoms significantly. I stressed the importance of the patient taking her medication as prescribed. I stressed the importance of the patient following up with her primary care provider. I stressed the importance of the patient returning to the emergency department immediately if her symptoms were to worsen or if she were to develop any dizziness, shortness of breath, difficulty breathing, chest pain, blurry vision, loss of vision, nausea, vomiting, abdominal pain, fever, chills, back pain, or any other complaints. Patient verbalized agreement and understanding with this treatment plan and discharge. Differential Diagnosis Differential Diagnoses: The differential diagnosis associated with the presentation includes Nausea Vomiting Viral illness Gastroenteritis COVID-19 Influenza UTI Admission/Observation Consideration of admission/observation: Escalation of care including admission/observation considered Patient would have been admitted to the hospital had her work up had any findings where hospital admission was appropriate and her clinical presentation warranted hospital admission. Lab Data [facility] Lab Attestation statement: I reviewed the patient's lab results. My interpretation of these results are in the [facility] Rationale portion of this note. 10/07/23 11:58 10/07/23 11:58 Labs: Lab Results 10/07/23 10/07/23 10/07/23 Range/Units 10:55 11:58 14:44 WBC 9.6 (4.8-10.8) X10*3/uL RBC 5.26 (4.20-5.50) X10*6/uL Hgb 15.5 (12.0-16.0) g/dl Hct 46.2 (37.0-47.0) % MCV 87.8 (80.0-98.0) fL MCH 29.5 (27.0-33.0) pg MCHC 33.5 (31.0-35.0) g/dl RDW 12.5 (11.0-16.0) % Plt Count 312 (160-400) X10*3/uL MPV 9.8 (9.4-12.3) fL Immature Gran % (Auto) 0.2 (0.0-0.4) % Neut % (Auto) 89.6 H (45-73) % Lymph % (Auto) 7.7 L (20-40) % [place] % (Auto) 1.8 L (2-11) % Eos % (Auto) 0.5 (0-4) % Baso % (Auto) 0.2 (0-2) % Lymph # (Auto) 0.7 L (1.2-4.9) X10*3/uL [place] # (Auto) 0.2 (0.1-1.2) X10*3/uL Eos # (Auto) 0.1 (0.0-0.4) X10*3/uL Baso # (Auto) 0.0 (0.0-0.2) X10*3/uL Abs Immat Gran (auto) 0.02 (0.00-0.03) X10*3/uL Absolute Neuts (auto) 8.6 H (2.0-8.3) x10*3/uL Absolute Nucleated RBC 0.000 (0.0-0.012) X10*3/uL Nucleated RBC % (auto) 0.0 (0.0-0.2) /100WBC Sodium 140 (135-145) mmol/L Potassium 4.3 (3.3-5.1) mmol/L Chloride 107 (96-108) mmol/L Carbon Dioxide 28 (22-29) mmol/L Anion Gap 9 L (12-20) BUN 13 (9-16) mg/dL Creatinine 0.71 (0.5-1.4) mg/dL Estim Creat Clear Calc 112.1 Estimated GFR > 60 Random Glucose 94 (60-115) mg/dL Calcium 9.3 (8.4-10.2) mg/dL Magnesium 2.1 (1.6-2.6) mg/dL Total Bilirubin 0.6 (0.0-1.0) mg/dL AST 17 (5-31) U/L ALT 17 (0-31) U/L Alkaline Phosphatase 103 (39-117) U/L Total Protein 7.7 (6.5-8.0) g/dL Albumin 4.2 (3.5-5.0) g/dL Lipase 11 (8-78) U/L Beta HCG, Quant < 2 mIU/mL Urine Color Yellow Urine Appearance Clear Urine pH 8.5 (5.0-9.0) Ur Specific [place] 1.020 (1.005-1.025) Urine Protein Negative (Neg-Trace) mg/dL Urine Glucose (UA) Negative (Negative) mg/dL Urine Ketones 15 (Negative) mg/dL Urine Blood Negative (Negative) Urine Nitrite Negative (Negative) Ur Leukocyte Esterase Negative (Negative) Influenza Type A (PCR) NEGATIVE (Negative) Influenza Type B (PCR) NEGATIVE (Negative) RSV RNA Qual (PCR) NEGATIVE (Negative) SARS-CoV-2 RNA (RT-PCR) NEGATIVE (Negative) Tests considered The following testing was considered but not selected: A CT scan of the abdomen/pelvis was considered however, the patient's current clinical presentation did not warrant this. I discussed this with the patient who verbalized understanding and agreement. Prescription Management I considered prescription management with: Other (patient prescribed an anti- emetic.) Critical Care Time Critical Care Time Critical Care Time: Yes Total Critical Care Time: 45 Attestation: I spent 45 minutes of Critical Care Time with this patient. This does not include time spent on separately reported billable procedures. Discharge Plan Discharge Clinical Impression: Viral illness Patient Disposition: Home, Self-Care Instructions: Viral Syndrome (ED) Additional Instructions: Your lab work is very reassuring. There is no evidence of any abnormality. Your COVID, influenza, RSV test was negative. Your urine showed no evidence of infection. Follow up with your primary care provider. Return to the emergency department immediately if your symptoms worsen or if you develop any dizziness, shortness of breath, difficulty breathing, chest pain, blurry vision, loss of vision, nausea, vomiting, abdominal pain, fever, chills, back pain, or any other complaints. Prescriptions: New ondansetron 4 mg tablet,disintegrating 4 mg PO Q8H 3 Days Qty: 9 0RF No Action nitrofurantoin monohyd/m-cryst [Macrobid] 100 mg capsule 100 mg PO BID 7 Days Qty: 14 0RF Rx Instructions: must administer with a meal/food phenazopyridine [Pyridium] 100 mg tablet 100 mg PO TID PRN (Reason: pain) Qty: 6 0RF docusate sodium [Colace] 100 mg capsule 100 mg PO BID PRN (Reason: Constipation) Qty: 14 0RF Chocolate Laxative 15 mg tablet,chewable 7.5 mg PO DAILY 5 Days Qty: 3 0RF cyclobenzaprine 10 mg tablet 10 mg PO TID PRN (Reason: muscle spasm) Qty: 14 0RF promethazine 25 mg suppository 25 mg IN Q6H PRN (Reason: nausea and vomiting) Qty: 12 0RF naproxen 500 mg tablet 500 mg PO BID PRN (Reason: pain) 10 Days Qty: 20 0RF prednisone 20 mg tablet 40 mg PO DAILY 5 Days Qty: 10 0RF ondansetron 4 mg tablet,disintegrating 4 mg PO ONCE PRN (Reason: nausea and vomiting) Qty: 10 0RF lidocaine 5 % adhesive patch,medicated 1 patch topical DAILY Qty: 15 0RF Rx Instructions: leave on most painful area for up to 12 hrs naproxen 500 mg tablet 500 mg PO BID PRN (Reason: pain) Qty: 20 0RF acetaminophen 500 mg tablet 1,000 mg PO TID PRN (Reason: pain) Qty: 30 0RF ibuprofen 600 mg tablet 600 mg PO Q6H PRN (Reason: pain) Qty: 20 0RF metronidazole 500 mg tablet 500 mg PO BID 7 Days Qty: 14 0RF amoxicillin 500 mg tablet 500 mg PO BID 10 Days Qty: 20 0RF acetaminophen [Tylenol Extra Strength] 500 mg tablet 500 mg PO Q6H PRN (Reason: fever or pain) Qty: 30 0RF ibuprofen 600 mg tablet 600 mg PO Q6H PRN (Reason: fever or pain) Qty: 30 0RF Oral Relief Sore Throat [place] 1.4 % aerosol,spray 1 spray mucous membrane Q4H PRN (Reason: sore throat) Qty: 177 0RF Referrals: [facility] Family [facility] [Provider Group] (Call to establish and follow up with a primary care provider. If you already have a primary care provider, please follow up with them.) [facility] [Provider Group] (Call to establish and follow up with a primary care provider. If you already have a primary care provider, please follow up with them.) [facility],[place] [Provider Group] (Call to establish and follow up with a primary care provider. If you already have a primary care provider, please follow up with them.) Print Language: [place]
[2023-10-07 11:41] LABS: Influenza A PCR NEGATIVE (Negative); Influenza B PCR NEGATIVE (Negative); Resp Syncy Virus RNA Qual PCR NEGATIVE (Negative); SARS COV2 PCR INHOUSE NEGATIVE (Negative)
[2023-10-07 12:03] LABS: MANUAL DIFF FLAG NO
[2023-10-07 12:04] LABS: Basophils Percent Auto 0.2 % (0-2); Eosinophils Absolute Auto 0.1 X10*3/uL (0.0-0.4); Eosinophils Percent Auto 0.5 % (0-4); Hematocrit 46.2 % (37.0-47.0); Hemoglobin 15.5 g/dl (12.0-16.0); Imm Gran Abs Auto 0.02 X10*3/uL (0.00-0.03); Imm Gran Pct Auto 0.2 % (0.0-0.4); Lymphocytes Absolute Auto 0.7 X10*3/uL (1.2-4.9); Lymphocytes Percent Auto 7.7 % (20-40); Mean Corpuscular HGB Conc 33.5 g/dl (31.0-35.0); Mean Corpuscular Hemoglobin 29.5 pg (27.0-33.0); Mean Corpuscular Volume 87.8 fL (80.0-98.0); Mean Platelet Volume 9.8 fL (9.4-12.3); Monocytes Absolute Auto 0.2 X10*3/uL (0.1-1.2); Monocytes Percent Auto 1.8 % (2-11); Neutrophils Absolute Auto 8.6 x10*3/uL (2.0-8.3); Neutrophils Percent Auto 89.6 % (45-73); Platelet Count 312 X10*3/uL (160-400); Red Blood Count 5.26 X10*6/uL (4.20-5.50); Red Cell Distribution Width 12.5 % (11.0-16.0); White Blood Count 9.6 X10*3/uL (4.8-10.8)
[2023-10-07] MEDS: 0.9 % Sodium Chloride 1,000 ML 999 ML IV (12:04)
[2023-10-07] MEDS: Morphine Sulfate 4 MG/ML CARTRIDGE IVPUSH (12:05)
[2023-10-07] MEDS: ondansetron HCL 4 MG/2 ML VIAL IVPUSH (12:06)
[2023-10-07 12:30] LABS: Alanine Aminotransferase 17 U/L (0-31); Albumin Level 4.2 g/dL (3.5-5.0); Alkaline Phosphatase 103 U/L (39-117); Anion Gap 9 (12-20); Aspartate Amino Transferase 17 U/L (5-31); Bilirubin Total 0.6 mg/dL (0.0-1.0); Blood Urea Nitrogen 13 mg/dL (9-16); Calcium 9.3 mg/dL (8.4-10.2); Carbon Dioxide 28 mmol/L (22-29); Chloride 107 mmol/L (96-108); Creatinine Clr Calc Pharmacy 112.1; Estimated Glomerular Filt Rate > 60; Glucose Random 94 mg/dL (60-115); HCG Quantitative < 2 mIU/mL; Magnesium 2.1 mg/dL (1.6-2.6); Potassium 4.3 mmol/L (3.3-5.1); Sodium 140 mmol/L (135-145); Total Protein 7.7 g/dL (6.5-8.0)
[2023-10-07 12:49] LABS: Lipase 11 U/L (8-78)
[2023-10-07 14:50] LABS: Appearance Urine Clear; Color Urine Yellow; Glucose Urine UA Negative (Negative); Leukocyte Esterase Urine Negative (Negative); Nitrite Urine Negative (Negative); PH 8.5 (5.0-9.0); Urine Blood Negative (Negative); Urine Ketones 15 mg/dL (Negative); Urine Protein Negative (Neg-Trace)
[2023-10-07 14:56] VITALS: BP 109/71; PULSE 100; RESP 16; TEMP 36.8; O2SAT 99
[2023-10-07] MEDS: Ketorolac Tromethamine 15 MG/ML VIAL IVPUSH (15:14)
== END 2023-10-07 15:27 | disposition home or self-care (01) ==
PROVIDERS: Physician Assistant Medical; Emergency Provider Emergency Medicine
DX: B34.9 Viral infection, unspecified (principal); Z11.52 Encounter for screening for COVID-19; Z20.828 Contact with and (suspected) exposure to other viral communicable diseases
CPT/HCPCS: 0241U; 36415; 80053; 81003; 83690; 83735; 84702; 85025; 96361; 96374; 96375; 99284; J1885; J2270; J2405

== ENCOUNTER → 2023-10-23 15:18 | Outpatient (BNVA) | payer OTHER, SELFPAY | PROVIDERS: Visit Provider Physician Assistant Surgical ==

== ENCOUNTER 2023-11-04 08:44 | Emergency (ER) | payer OTHER, SELFPAY ==
[2023-11-04 08:55] VITALS: BP 132/84; PULSE 70; RESP 20; TEMP 37; O2SAT 98; BMI 31.6
--- NOTE | 2023-11-04 09:33 | ED_ITS ---
HPI - General Adult General Chief complaint: Skin/Abscess/Foreign Body Stated complaint: facial burning sensation Time Seen by Provider: 11/04/23 09:29 Source: patient Mode of arrival: ambulatory Limitations: no limitations History of Present Illness HPI narrative: Patient is a 27 year old assigned female at with a history of skin issues / sensitive skin presenting to the emergency department today with facial redness. Patient states that last night after washing her face her cheeks were red and somewhat burning. Patient states that she woke up this morning and the feeling and redness continued. Patient denies any new product use or exfoliation. Patient denies any dizziness, lightheadedness, abdominal pain, nausea, vomiting, fever, chills, blurry vision, double vision, loss of vision, chest pain, difficulty breathing, shortness of breath, back pain, night sweats, pain with urination, increased urinary frequency, increased urinary urgency, blood in her urine or stool, syncope or a near syncopal episode, recent trauma or falls, bowel incontinence, bladder incontinence, bowel retention, bladder retention, or any other complaints at this time. Onset (ago): day(s) (1) Location: face Radiation: non-radiation Severity: mild Relieving factors: none Exacerbating factors: none Associated symptoms: rash Treatments prior to arrival: none Related Data Previous Rx's ?Medication ?Instructions ?Recorded docusate sodium 100 mg capsule 100 mg PO BID PRN Constipation #14 03/14/21 (Colace) caps nitrofurantoin 100 mg PO BID 7 days #14 caps 03/14/21 monohydrate/macrocrystals 100 mg capsule (Macrobid) phenazopyridine 100 mg tablet 100 mg PO TID PRN pain 6 doses #6 03/14/21 (Pyridium) tabs sennosides 15 mg chewable tablet 7.5 mg (1/2 x 15 mg) PO DAILY 03/14/21 (Chocolate Laxative) Constipation 5 days #3 tabs cyclobenzaprine 10 mg tablet 10 mg PO TID PRN muscle spasm #14 05/12/21 tabs promethazine 25 mg rectal 25 mg NE Q6H PRN nausea and 05/12/21 suppository vomiting #12 ea naproxen 500 mg tablet 500 mg PO BID PRN pain 10 days #20 08/06/21 tabs prednisone 20 mg tablet 40 mg (2 x 20 mg) PO DAILY 5 days 08/06/21 #10 tabs ondansetron 4 mg disintegrating 4 mg PO ONCE PRN nausea and 03/03/22 tablet vomiting #10 tabs acetaminophen 500 mg tablet 1,000 mg (2 x 500 mg) PO TID PRN 07/16/22 pain #30 tabs ibuprofen 600 mg tablet 600 mg PO Q6H PRN pain #20 tabs 07/16/22 metronidazole 500 mg tablet 500 mg PO BID bacterial Vaginosis 07/19/22 7 days #14 tabs lidocaine 5 % topical patch 1 patch topical DAILY #15 ea 08/15/22 naproxen 500 mg tablet 500 mg PO BID PRN pain #20 tabs 08/15/22 acetaminophen 500 mg tablet 500 mg PO Q6H PRN fever or pain 06/16/23 (Tylenol Extra Strength) #30 tabs amoxicillin 500 mg tablet 500 mg PO BID 10 days #20 tabs 06/16/23 ibuprofen 600 mg tablet 600 mg PO Q6H PRN fever or pain 06/16/23 #30 tabs phenol 1.4 % mucosal aerosol spray 1 spray mucous membrane Q4H PRN 06/16/23 (Oral Relief Sore Throat [place]) sore throat #177 mL ondansetron 4 mg disintegrating 4 mg PO Q8H 3 days #9 tabs 10/07/23 tablet prednisone 20 mg tablet 20 mg PO DAILY 7 days #7 tabs 11/04/23 Allergies Allergy/AdvReac Type Severity Reaction Status Date / Time No Known Allergies Allergy Verified 11/04/23 08:56 [No Known Allergies*] Review of Systems Constitutional: Constitutional: Reports no additional constitutional complai nts, Denies chills, Denies fever(s) and Denies night sweats Eyes: Eyes: Reports no additional eye complaints, Denies blurry vision, Denies change in vision, Denies diplopia, Denies eye discharge, Denies loss of vision and Denies eye pain ENT: Denies dizziness Comments: facial redness with burning sensation Cardiovascular: Cardiovascular: Reports no additional cardiovascular complaints, Denies chest pain, Denies lightheadedness, Denies Loss of Consciousness and Denies dyspnea Respiratory: Respiratory: Reports no additional respiratory complaints and Denies dyspnea Gastrointestinal: Gastrointestinal: Reports no additional gastrointestinal complaints, Denies abdominal pain, Denies melena, Denies hematochezia, Denies change in bowel habits and Denies change in stool character Genitourinary: Genitourinary: Denies hematuria, Denies urinary frequency, Denies dysuria, Denies urinary incontinence, Denies urinary hesitancy and Denies urinary urgency Musculoskeletal: Musculoskeletal: Reports no additional musculoskeletal complaints, Denies numbness and Denies tingling Neurologic: Denies dizziness, Denies loss of vision, Denies numbness and Denies tingling Psychiatric: Psychiatric: Reports no additional psychiatric complaints Endocrine: Endocrine: Reports no additional endocrine complaints Hematologic/Lymphatic: Hematologic/Lymphatic: Reports no additional hematologic/lymphatic complaints Allergic/Immunologic: Allergic/Immunologic: Reports no additional allergic/immunologic complaints [facility] Past Medical History Attestation statement: The following information was validated with the patient. 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/ [employer] Physical Exam ED Vital Signs: Vital Signs - 24 hr 11/04/23 08:55 Temperature 98.6 F Pulse Rate 70 Respiratory Rate 20 Blood Pressure 132/84 Pulse Oximetry 98 Oxygen Delivery Method Room Air BMI result Body Mass Index 31.6 Const General: cooperative, no acute distress, alert and awake Nutritional Appearance: well nourished Orientation/consciousness: patient oriented x3 Limitations: no limitations HENMT Head: Yes normal to inspection and Yes atraumatic Ears: hearing grossly normal bilaterally and external ears normal General nose exam: Normal external nose present, no nasal discharge noted and no epistaxis Face and sinus: No abrasion, No laceration and Yes other (rosacea type rash pre sent to bilateral cheeks) Mouth: Normal oral and palatal mucosa present, no drooling and no muffled voice Eyes General: appearance normal, both eyes and all related structures Periorbital: periorbital findings normal Eyelids: Yes eyelids normal Conjunctivae: conjunctivae normal Pupils: Equal, round and reactive pupils present EOM: EOMs intact bilaterally Neck Neck: Yes normal visual inspection, Yes full ROM and Yes no lymphadenopathy Chest Chest palpation & inspection: normal inspection of the chest Resp Effort & Inspection: normal respiratory effort and able to speak in complete sentences GI Inspection: Yes normal to inspection Neuro General: patient oriented x3 and moves all extremities Cranial nerves: Yes Equal, round and reactive pupils present Cognition (Neuro): normal cognition Motor exam (neuro): 5/5 motor strength present throughout Sensory Exam: Normal double simultaneous stimulation for sensation Coordination: [id number] test normal Extrem General: Yes normal to inspection, Yes full ROM and Yes capillary refill normal Psych Appearance: grossly normal Mental Status: mental status grossly normal Affect: normal affect Attitude: cooperative Thought process: Normal thought process present Thought content: Normal thought content present Insight: Good insight present (Psych) Medical Decision Making Medical Decision Making MDM Narrative: Patient is a 27 year old assigned female at with a history of skin issues / sensitive skin presenting to the emergency department today with face redness and burning. Patient's physical exam was as noted in the physical exam portion of this note. No evidence of zoster, most consistent with rosacea. I explained my physical exam findings to the patient. I answered all questions asked by the patient. I stressed the importance of the patient taking her medication as prescribed. I stressed the importance of the patient following up with her primary care provider and a behavioral therapy coordinator. I stressed the importance of the patient returning to the emergency department immediately if her symptoms were to worsen or if she were to develop any dizziness, shortness of breath, difficulty breathing, chest pain, blurry vision, loss of vision, nausea, vomiting, abdominal pain, fever, chills, back pain, or any other complaints. Patient verbalized agreement and understanding with this treatment plan and discharge. Differential Diagnosis Differential Diagnoses: The differential diagnosis associated with the presentation includes Rash Rosacea Dermatitis Admission/Observation Consideration of admission/observation: Escalation of care including admission/observation considered Patient would have been admitted to the hospital had her clinical presentation warranted hospital admission. Prescription Management I considered prescription management with: Other (patient prescribed prednisone for rosacea) Discharge Plan Discharge Clinical Impression: Rosacea Patient Disposition: Home, Self-Care Instructions: Rosacea (ED) Additional Instructions: Follow up with your primary care provider and a behavioral therapy coordinator. Return to the emergency department immediately if your symptoms worsen or if you develop any dizziness, shortness of breath, difficulty breathing, chest pain, blurry vision, loss of vision, nausea, vomiting, abdominal pain, fever, chills, back pain, or any other complaints. Prescriptions: New prednisone 20 mg tablet 20 mg PO DAILY 7 Days Qty: 7 0RF No Action nitrofurantoin monohyd/m-cryst [Macrobid] 100 mg capsule 100 mg PO BID 7 Days Qty: 14 0RF Rx Instructions: must administer with a meal/food phenazopyridine [Pyridium] 100 mg tablet 100 mg PO TID PRN (Reason: pain) Qty: 6 0RF docusate sodium [Colace] 100 mg capsule 100 mg PO BID PRN (Reason: Constipation) Qty: 14 0RF Chocolate Laxative 15 mg tablet,chewable 7.5 mg PO DAILY 5 Days Qty: 3 0RF cyclobenzaprine 10 mg tablet 10 mg PO TID PRN (Reason: muscle spasm) Qty: 14 0RF promethazine 25 mg suppository 25 mg NE Q6H PRN (Reason: nausea and vomiting) Qty: 12 0RF naproxen 500 mg tablet 500 mg PO BID PRN (Reason: pain) 10 Days Qty: 20 0RF prednisone 20 mg tablet 40 mg PO DAILY 5 Days Qty: 10 0RF ondansetron 4 mg tablet,disintegrating 4 mg PO ONCE PRN (Reason: nausea and vomiting) Qty: 10 0RF lidocaine 5 % adhesive patch,medicated 1 patch topical DAILY Qty: 15 0RF Rx Instructions: leave on most painful area for up to 12 hrs naproxen 500 mg tablet 500 mg PO BID PRN (Reason: pain) Qty: 20 0RF acetaminophen 500 mg tablet 1,000 mg PO TID PRN (Reason: pain) Qty: 30 0RF ibuprofen 600 mg tablet 600 mg PO Q6H PRN (Reason: pain) Qty: 20 0RF metronidazole 500 mg tablet 500 mg PO BID 7 Days Qty: 14 0RF amoxicillin 500 mg tablet 500 mg PO BID 10 Days Qty: 20 0RF acetaminophen [Tylenol Extra Strength] 500 mg tablet 500 mg PO Q6H PRN (Reason: fever or pain) Qty: 30 0RF ibuprofen 600 mg tablet 600 mg PO Q6H PRN (Reason: fever or pain) Qty: 30 0RF Oral Relief Sore Throat [place] 1.4 % aerosol,spray 1 spray mucous membrane Q4H PRN (Reason: sore throat) Qty: 177 0RF ondansetron 4 mg tablet,disintegrating 4 mg PO Q8H 3 Days Qty: 9 0RF Referrals: [facility] [Provider Group] (Call to establish and follow up with a behavioral therapy coordinator.) [facility] Family Medicine [Provider Group] (Call to establish and follow up with a primary care provider. If you already have a primary care provider, please follow up with them.) [facility] [Provider Group] [facility] [Provider Group] Stand Alone Forms: Work/School Release Interventions: ED Discharge Assessment Last Done: 11/04/23 09:47 Print Language: Thai
[2023-11-04 09:47] VITALS: BP 132/84; PULSE 70; RESP 20; TEMP 37; O2SAT 98
== END 2023-11-04 09:47 | disposition home or self-care (01) ==
PROVIDERS: Emergency Provider Emergency Medicine
DX: L71.9 Rosacea, unspecified (principal)
CPT/HCPCS: 99282; 99283

== ENCOUNTER 2024-02-24 18:31 | Emergency (ER) | payer OTHER, SELFPAY ==
[2024-02-24 18:51] VITALS: BP 148/80; PULSE 77; RESP 18; TEMP 36.6; O2SAT 99; BMI 31.4
[2024-02-24 19:39] LABS: Influenza A PCR NEGATIVE (Negative); Influenza B PCR NEGATIVE (Negative); Resp Syncy Virus RNA Qual PCR NEGATIVE (Negative); SARS COV2 PCR INHOUSE NEGATIVE (Negative)
--- NOTE | 2024-02-24 19:51 | ED_ITS ---
HPI - General Adult General Chief complaint: General Medical Stated complaint: has a metal taste Time Seen by Provider: 02/24/24 22:56 Source: patient Mode of arrival: ambulatory Limitations: no limitations History of Present Illness ED Provider: CORNELIUS HPI narrative: 28 yo female no sig PMH here with distinct metal taste in her mouth that at first was on Saturday and was intermittent then for the last 24 hours is non stop. She has no other complaints and this has never happened before. No new meds, mouth pain or sores. MD complaint: metal taste in mouth Onset (ago): day(s) (3) Location: mouth Radiation: non-radiation Severity: moderate Relieving factors: none Exacerbating factors: eating Associated symptoms: denies other symptoms Treatments prior to arrival: none Related Data Previous Rx's ?Medication ?Instructions ?Recorded docusate sodium 100 mg capsule 100 mg PO BID PRN Constipation #14 03/14/21 (Colace) caps nitrofurantoin 100 mg PO BID 7 days #14 caps 03/14/21 monohydrate/macrocrystals 100 mg capsule (Macrobid) phenazopyridine 100 mg tablet 100 mg PO TID PRN pain 6 doses #6 03/14/21 (Pyridium) tabs sennosides 15 mg chewable tablet 7.5 mg (1/2 x 15 mg) PO DAILY 03/14/21 (Chocolate Laxative) Constipation 5 days #3 tabs cyclobenzaprine 10 mg tablet 10 mg PO TID PRN muscle spasm #14 05/12/21 tabs promethazine 25 mg rectal 25 mg ND Q6H PRN nausea and 05/12/21 suppository vomiting #12 ea naproxen 500 mg tablet 500 mg PO BID PRN pain 10 days #20 08/06/21 tabs prednisone 20 mg tablet 40 mg (2 x 20 mg) PO DAILY 5 days 08/06/21 #10 tabs ondansetron 4 mg disintegrating 4 mg PO ONCE PRN nausea and 03/03/22 tablet vomiting #10 tabs acetaminophen 500 mg tablet 1,000 mg (2 x 500 mg) PO TID PRN 07/16/22 pain #30 tabs ibuprofen 600 mg tablet 600 mg PO Q6H PRN pain #20 tabs 07/16/22 metronidazole 500 mg tablet 500 mg PO BID bacterial Vaginosis 07/19/22 7 days #14 tabs lidocaine 5 % topical patch 1 patch topical DAILY #15 ea 08/15/22 naproxen 500 mg tablet 500 mg PO BID PRN pain #20 tabs 08/15/22 acetaminophen 500 mg tablet 500 mg PO Q6H PRN fever or pain 06/16/23 (Tylenol Extra Strength) #30 tabs amoxicillin 500 mg tablet 500 mg PO BID 10 days #20 tabs 06/16/23 ibuprofen 600 mg tablet 600 mg PO Q6H PRN fever or pain 06/16/23 #30 tabs phenol 1.4 % mucosal aerosol spray 1 spray mucous membrane Q4H PRN 06/16/23 (Oral Relief Sore Throat [place]) sore throat #177 mL ondansetron 4 mg disintegrating 4 mg PO Q8H 3 days #9 tabs 10/07/23 tablet prednisone 20 mg tablet 20 mg PO DAILY 7 days #7 tabs 11/04/23 amoxicillin 500 mg tablet 500 mg PO BID #19 tabs 02/25/24 Allergies Allergy/AdvReac Type Severity Reaction Status Date / Time No Known Allergies Allergy Verified 02/24/24 18:54 [No Known Allergies*] Review of Systems 2 Review of Systems: Constitutional : No Fever, No Chills, No Fatigue ENT/Mouth : No sore throat, No Rhinorrhea Eyes: No Eye Pain, No Swelling, No Redness Cardiovascular : No Chest Pain, No SOB, No Dyspnea on Exertion Respiratory : No Cough, No Sputum Gastrointestinal : No Nausea, No Vomiting, No Diarrhea, No abdominal Pain Genitourinary : No Dysuria, No Urinary Frequency, No Hematuria, Musculoskeletal : No joint pain, No Myalgias, No Joint Swelling Skin : No Skin Lesions, No rash Neuro : No Weakness, No Numbness, No Dizziness, no Headache Psych : No Anxiety/Panic, No Depression Heme/Lymph: No Bruising, No Bleeding,No Lymphadenopathy Endocrine : No Polyuria, No Polydipsia All other systems reviewed and are negative [facility] Past Medical History Attestation statement: The following information was validated with the patient. 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 Oriented X3. No acute distress. Eyes: Pupils equal, round and reactive to light. ENT: Pharynx normal. no signs of lesions or infection Neck: Normal inspection. Neck supple. CVS: Normal heart rate and rhythm. Pulses normal. Respiratory: No respiratory distress. Breath sounds normal. Abdomen: Soft and nontender. Skin: Skin warm and dry. Normal skin color. Normal skin turgor. Extremities: No lower extremity edema. No calf ttp Neuro: Oriented X 3. No motor deficit. No sensory deficit. Course Course Course Narrative: This is an RME: Additional HPI, ROS, PE not included below will be deferred to primary provider. RME assessment and note performed by: Michelle Dominguez PA-C This is a [id number]-female who presents to the ER with complaints of metallic like taste in mouth x 2 days. Reports that her symptoms started saturday, no other symptoms. No fevers, chills, congestion, sore throat, ear pain, cough. Plan: Viral swabs Medical Decision Making Medical Decision Making [facility] Narrative: 28 yo female no sig PMH here with c/o metal taste in mouth worsening since Saturday at this time no signs of infection in mouth no other known source at this time will obtain basic labs infl markers Differential Diagnosis Differential Diagnoses: The differential diagnosis associated with the presentation includes dysguesia, strep throat Admission/Observation Consideration of admission/observation: Escalation of care including admission/observation considered labs reassuring stable for DC Lab Data [facility] Lab Attestation statement: I reviewed the patient's lab results. 02/24/24 23:38 02/24/24 23:38 Labs: Lab Results 02/24/24 02/24/24 02/24/24 Range/Units 18:58 23:35 23:38 WBC 6.6 (4.8-10.8) X10*3/uL RBC 4.55 (4.20-5.50) X10*6/uL Hgb 13.6 (12.0-16.0) g/dl Hct 39.2 (37.0-47.0) % MCV 86.2 (80.0-98.0) fL MCH 29.9 (27.0-33.0) pg MCHC 34.7 (31.0-35.0) g/dl RDW 12.6 (11.0-16.0) % Plt Count 275 (160-400) X10*3/uL MPV 9.5 (9.4-12.3) fL Immature Gran % (Auto) 0.3 (0.0-0.4) % Neut % (Auto) 49.7 (45-73) % Lymph % (Auto) 40.5 H (20-40) % [place] % (Auto) 6.1 (2-11) % Eos % (Auto) 2.9 (0-4) % Baso % (Auto) 0.5 (0-2) % Lymph # (Auto) 2.7 (1.2-4.9) X10*3/uL [place] # (Auto) 0.4 (0.1-1.2) X10*3/uL Eos # (Auto) 0.2 (0.0-0.4) X10*3/uL Baso # (Auto) 0.0 (0.0-0.2) X10*3/uL Abs Immat Gran (auto) 0.02 (0.00-0.03) X10*3/uL Absolute Neuts (auto) 3.3 (2.0-8.3) x10*3/uL Absolute Nucleated RBC 0.000 (0.0-0.012) X10*3/uL Nucleated RBC % (auto) 0.0 (0.0-0.2) /100WBC Influenza Type A (PCR) NEGATIVE (Negative) Influenza Type B (PCR) NEGATIVE (Negative) RSV RNA Qual (PCR) NEGATIVE (Negative) SARS-CoV-2 RNA (RT-PCR) NEGATIVE (Negative) S. pyogenes GrpA ALFONZO Positive A (Negative) External Record Review External record reviewed: Office record Prescription Management I considered prescription management with: Antibiotic Discharge Plan Discharge Clinical Impression: Dysgeusia, Strep throat Patient Disposition: Home, Self-Care Instructions: Strep Throat (ED) Additional Instructions: labs reassuring finish antibiotics positive for strep throat return for worsening symptoms or concerns take a probiotic while on amoxicillin Prescriptions: New amoxicillin 500 mg tablet 500 mg PO BID Qty: 19 0RF No Action nitrofurantoin monohyd/m-cryst [Macrobid] 100 mg capsule 100 mg PO BID 7 Days Qty: 14 0RF Rx Instructions: must administer with a meal/food phenazopyridine [Pyridium] 100 mg tablet 100 mg PO TID PRN (Reason: pain) Qty: 6 0RF docusate sodium [Colace] 100 mg capsule 100 mg PO BID PRN (Reason: Constipation) Qty: 14 0RF Chocolate Laxative 15 mg tablet,chewable 7.5 mg PO DAILY 5 Days Qty: 3 0RF cyclobenzaprine 10 mg tablet 10 mg PO TID PRN (Reason: muscle spasm) Qty: 14 0RF promethazine 25 mg suppository 25 mg ND Q6H PRN (Reason: nausea and vomiting) Qty: 12 0RF naproxen 500 mg tablet 500 mg PO BID PRN (Reason: pain) 10 Days Qty: 20 0RF prednisone 20 mg tablet 40 mg PO DAILY 5 Days Qty: 10 0RF ondansetron 4 mg tablet,disintegrating 4 mg PO ONCE PRN (Reason: nausea and vomiting) Qty: 10 0RF lidocaine 5 % adhesive patch,medicated 1 patch topical DAILY Qty: 15 0RF Rx Instructions: leave on most painful area for up to 12 hrs naproxen 500 mg tablet 500 mg PO BID PRN (Reason: pain) Qty: 20 0RF acetaminophen 500 mg tablet 1,000 mg PO TID PRN (Reason: pain) Qty: 30 0RF ibuprofen 600 mg tablet 600 mg PO Q6H PRN (Reason: pain) Qty: 20 0RF metronidazole 500 mg tablet 500 mg PO BID 7 Days Qty: 14 0RF amoxicillin 500 mg tablet 500 mg PO BID 10 Days Qty: 20 0RF acetaminophen [Tylenol Extra Strength] 500 mg tablet 500 mg PO Q6H PRN (Reason: fever or pain) Qty: 30 0RF ibuprofen 600 mg tablet 600 mg PO Q6H PRN (Reason: fever or pain) Qty: 30 0RF Oral Relief Sore Throat [place] 1.4 % aerosol,spray 1 spray mucous membrane Q4H PRN (Reason: sore throat) Qty: 177 0RF prednisone 20 mg tablet 20 mg PO DAILY 7 Days Qty: 7 0RF ondansetron 4 mg tablet,disintegrating 4 mg PO Q8H 3 Days Qty: 9 0RF Print Language: Iraqi
[2024-02-24 23:05] VITALS: BP 127/84; PULSE 84; RESP 16; TEMP 37.1; O2SAT 98
[2024-02-24 23:43] LABS: Basophils Percent Auto 0.5 % (0-2); Eosinophils Absolute Auto 0.2 X10*3/uL (0.0-0.4); Eosinophils Percent Auto 2.9 % (0-4); Hematocrit 39.2 % (37.0-47.0); Hemoglobin 13.6 g/dl (12.0-16.0); Imm Gran Abs Auto 0.02 X10*3/uL (0.00-0.03); Imm Gran Pct Auto 0.3 % (0.0-0.4); Lymphocytes Absolute Auto 2.7 X10*3/uL (1.2-4.9); Lymphocytes Percent Auto 40.5 % (20-40); MANUAL DIFF FLAG NO; Mean Corpuscular HGB Conc 34.7 g/dl (31.0-35.0); Mean Corpuscular Hemoglobin 29.9 pg (27.0-33.0); Mean Corpuscular Volume 86.2 fL (80.0-98.0); Mean Platelet Volume 9.5 fL (9.4-12.3); Monocytes Absolute Auto 0.4 X10*3/uL (0.1-1.2); Monocytes Percent Auto 6.1 % (2-11); Neutrophils Absolute Auto 3.3 x10*3/uL (2.0-8.3); Neutrophils Percent Auto 49.7 % (45-73); Platelet Count 275 X10*3/uL (160-400); Red Blood Count 4.55 X10*6/uL (4.20-5.50); Red Cell Distribution Width 12.6 % (11.0-16.0); White Blood Count 6.6 X10*3/uL (4.8-10.8)
[2024-02-24 23:52] LABS: IDNOW Serial# 08D9AD1C; Strep A Nucleic Acid Positive (Negative)
[2024-02-25 00:09] LABS: Alanine Aminotransferase 16 U/L (0-31); Albumin Level 3.8 g/dL (3.5-5.0); Alkaline Phosphatase 77 U/L (39-117); Anion Gap 10 (12-20); Aspartate Amino Transferase 15 U/L (5-31); Bilirubin Direct 0.1 mg/dL (0.0-0.5); Bilirubin Total 0.4 mg/dL (0.0-1.0); Blood Urea Nitrogen 11 mg/dL (9-16); C Reactive Protein 0.31 mg/dL (< or = 0.50); Carbon Dioxide 24 mmol/L (22-29); Chloride 108 mmol/L (96-108); Creatinine Clr Calc Pharmacy 124.6; Estimated Glomerular Filt Rate > 60; Glucose Random 101 mg/dL (60-115); HCG Quantitative < 2 mIU/mL; Magnesium 2.1 mg/dL (1.6-2.6); Potassium 3.7 mmol/L (3.3-5.1); Sodium 138 mmol/L (135-145); Total Protein 6.7 g/dL (6.5-8.0)
[2024-02-25 00:15] LABS: Erythrocyte Sedimentation Rate 2 MM/HR (0-20)
[2024-02-25 00:39] VITALS: BP 116/74; PULSE 92; RESP 16; TEMP 36.8; O2SAT 97
[2024-02-25] MEDS: Amoxicillin 500 MG CAPSULE PO (00:46)
[2024-02-25 00:50] VITALS: BP 116/74; PULSE 92; RESP 16; TEMP 36.8; O2SAT 97
== END 2024-02-25 00:50 | disposition home or self-care (01) ==
PROVIDERS: Emergency Provider Emergency Medicine
DX: R43.2 Parageusia (principal); J02.0 Streptococcal pharyngitis; Z79.899 Other long term (current) drug therapy; Z03.818 Encounter for observation for suspected exposure to other biological agents ruled out
CPT/HCPCS: 0241U; 36415; 80048; 80076; 83735; 84702; 85025; 85652; 86140; 87651; 99283; 99284

== ENCOUNTER 2024-07-06 16:30 | Emergency (ER) | payer OTHER, SELFPAY ==
--- NOTE | ~2024-07-06 | XR_ITS ---
EXAMINATION: XR CHEST CLINICAL INFORMATION: chest pain, dyspnea, syncope, D-dimer neg COMPARISON: X-ray 07/03/2023 TECHNIQUE: 2 views of the chest were obtained. FINDINGS: The cardiomediastinal silhouette is within normal limits. The lungs are well expanded. There is no focal consolidation, edema, or effusion. No pneumothorax. No acute osseous abnormality. XR/XR chest 2V IMPRESSION: No evidence of acute pulmonary process. Electronically signed by: Wilfred Mcclain MD 07/06/2024 10:35 PM EST
[2024-07-06 16:32] VITALS: BP 130/100; PULSE 114; RESP 20; TEMP 36.8; O2SAT 98; BMI 27.6
--- NOTE | 2024-07-06 16:37 | ECG_ITS ---
Test Reason : CHEST PAIN Blood Pressure : / mmHG Vent. Rate : 105 BPM Atrial Rate : 105 BPM P-R Int : 128 ms QRS Dur : 094 ms QT Int : 346 ms P-R-T Axes : 028 047 023 degrees QTc Int : 457 ms Sinus tachycardia Otherwise normal ECG When compared with ECG of 12-MAR-2022 11:27, No significant change was found Referred By: Generic ED Physician Electronically Signed By:WALTER MORRISON MD
[2024-07-06 16:50] LABS: MANUAL DIFF FLAG NO
[2024-07-06 16:51] LABS: Basophils Percent Auto 0.3 % (0-2); Hematocrit 40.5 % (37.0-47.0); Hemoglobin 13.8 g/dl (12.0-16.0); Imm Gran Abs Auto 0.03 X10*3/uL (0.00-0.03); Imm Gran Pct Auto 0.3 % (0.0-0.4); Lymphocytes Absolute Auto 1.8 X10*3/uL (1.2-4.9); Lymphocytes Percent Auto 18.2 % (20-40); Mean Corpuscular HGB Conc 34.1 g/dl (31.0-35.0); Mean Corpuscular Hemoglobin 28.9 pg (27.0-33.0); Mean Corpuscular Volume 84.7 fL (80.0-98.0); Mean Platelet Volume 9.9 fL (9.4-12.3); Monocytes Absolute Auto 0.6 X10*3/uL (0.1-1.2); Monocytes Percent Auto 6.4 % (2-11); Neutrophils Absolute Auto 7.5 x10*3/uL (2.0-8.3); Neutrophils Percent Auto 74.8 % (45-73); Platelet Count 381 X10*3/uL (160-400); Red Blood Count 4.78 X10*6/uL (4.20-5.50); Red Cell Distribution Width 12.4 % (11.0-16.0); White Blood Count 10.1 X10*3/uL (4.8-10.8)
[2024-07-06 17:03] LABS: INTERNATIONAL NORM RATIO 1.2 (0.9-1.1); Prothrombin Time 14.2 SEC (10.9-12.4)
[2024-07-06 17:06] LABS: Alanine Aminotransferase 10 U/L (0-31); Albumin Level 4.3 g/dL (3.5-5.0); Alkaline Phosphatase 81 U/L (39-117); Anion Gap 17 (12-20); Aspartate Amino Transferase 23 U/L (5-31); Bilirubin Direct 0.3 mg/dL (0.0-0.5); Bilirubin Total 0.6 mg/dL (0.0-1.0); Blood Urea Nitrogen 7 mg/dL (9-16); Calcium 9.8 mg/dL (8.4-10.2); Carbon Dioxide 18 mmol/L (22-29); Chloride 104 mmol/L (96-108); Creatinine Clr Calc Pharmacy 105.1; Estimated Glomerular Filt Rate > 60; Glucose Random 90 mg/dL (60-115); Lipase 9 U/L (8-78); Partial Thromboplastin Time 33.2 SEC (26.0-36.8); Potassium 3.3 mmol/L (3.3-5.1); Sodium 136 mmol/L (135-145); Total Protein 7.9 g/dL (6.5-8.0)
[2024-07-06 17:14] LABS: Troponin-I High Sensitivity < 2.7 ng/L (<3.5-17.0)
[2024-07-06 17:47] LABS: D Dimer High Sensitivity < 150 NG/ML
--- NOTE | 2024-07-06 19:57 | ED_ITS ---
HPI - Chest Pain General Chief Complaint: Chest Pain Stated Complaint: can't breathe Time Seen by Provider: 07/06/24 21:20 History of Present Illness ED Provider: Pete GRIGSBY narrative: The patient is a 28-year-old female with no significant past medical history. She was at work today. 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 She says that while she was at work she started to feel somewhat unwell. She went to the bathroom and put a lot of cold water on her face. She then told a co-worker she was not feeling well. The co-worker helped her get to a couch but before she could get to a couch she apparently passed out. The co-worker was with her and she did not injure herself. There was no description of any seizure activity. Her coworkers then called her mother who came and picked her up from work and took her home. After the patient got home she experienced a sense of palpitations and chest pain and her mother brought her to the emergency room. The patient is here with her mother and her . She is quite certain she is not because her has had a vasectomy. She has had no fever, sweats, chills. No cough or sputum. No pain or swelling in her legs. The patient says she has not had a similar episode in the past. Related Data Previous Rx's ?Medication ?Instructions ?Recorded docusate sodium 100 mg capsule 100 mg PO BID PRN Constipation #14 03/14/21 (Colace) caps nitrofurantoin 100 mg PO BID 7 days #14 caps 03/14/21 monohydrate/macrocrystals 100 mg capsule (Macrobid) phenazopyridine 100 mg tablet 100 mg PO TID PRN pain 6 doses #6 03/14/21 (Pyridium) tabs sennosides 15 mg chewable tablet 7.5 mg (1/2 x 15 mg) PO DAILY 03/14/21 (Chocolate Laxative) Constipation 5 days #3 tabs cyclobenzaprine 10 mg tablet 10 mg PO TID PRN muscle spasm #14 05/12/21 tabs promethazine 25 mg rectal 25 mg [place] Q6H PRN nausea and 05/12/21 suppository vomiting #12 ea naproxen 500 mg tablet 500 mg PO BID PRN pain 10 days #20 08/06/21 tabs prednisone 20 mg tablet 40 mg (2 x 20 mg) PO DAILY 5 days 08/06/21 #10 tabs ondansetron 4 mg disintegrating 4 mg PO ONCE PRN nausea and 03/03/22 tablet vomiting #10 tabs acetaminophen 500 mg tablet 1,000 mg (2 x 500 mg) PO TID PRN 07/16/22 pain #30 tabs ibuprofen 600 mg tablet 600 mg PO Q6H PRN pain #20 tabs 07/16/22 metronidazole 500 mg tablet 500 mg PO BID bacterial Vaginosis 07/19/22 7 days #14 tabs lidocaine 5 % topical patch 1 patch topical DAILY #15 ea 08/15/22 naproxen 500 mg tablet 500 mg PO BID PRN pain #20 tabs 08/15/22 acetaminophen 500 mg tablet 500 mg PO Q6H PRN fever or pain 06/16/23 (Tylenol Extra Strength) #30 tabs amoxicillin 500 mg tablet 500 mg PO BID 10 days #20 tabs 06/16/23 ibuprofen 600 mg tablet 600 mg PO Q6H PRN fever or pain 06/16/23 #30 tabs phenol 1.4 % mucosal aerosol spray 1 spray mucous membrane Q4H PRN 06/16/23 (Oral Relief Sore Throat [place]) sore throat #177 mL ondansetron 4 mg disintegrating 4 mg PO Q8H 3 days #9 tabs 10/07/23 tablet prednisone 20 mg tablet 20 mg PO DAILY 7 days #7 tabs 11/04/23 amoxicillin 500 mg tablet 500 mg PO BID #19 tabs 02/25/24 Allergies Allergy/AdvReac Type Severity Reaction Status Date / Time No Known Allergies Allergy Verified 07/06/24 16:34 [No Known Allergies*] Review of Systems 2 Review of Systems: Yes all other systems are reviewed and are negative PMFSH Past Medical History Medical History COVID-19 Pelvic pain Numbness and tingling in right hand Right wrist tendinitis COVID-19 ruled out by laboratory testing Costochondritis Surgical History [place] teeth extracted History of appendectomy Social History Social History Alcohol intake: never Patient Tobacco Use Status: Never used Tobacco Smoked in Last 30 Days: No Advance Directives: No Advance Directives Information Provided: No Do you have a plan to hurt others: No Plan Patient : No Current occupational status: employed 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 She seemed to be profoundly uncomfortable with any movements. She did not seem in any respiratory distress. HEENT: Other: The face is symmetrical. ?Mucous membranes moist. Eyes: General: appearance normal, both eyes and all related structures A lignment and Position: alignment normal Eyelids: Yes eyelids normal C onjunctivae: conjunctivae normal Sclerae: sclerae normal Pupils: Equal, round and reactive pupils present EOM: EOMs intact bilaterally Neck: Other: Moving her neck easily Chest: Other: There is left-sided chest wall tenderness that seems to reproduce her pain Resp: Other: No increased work of breathing Effort & Inspection: normal respiratory effort Auscultation: clear to auscultation bilaterally Cardio: Rate: regular rate Rhythm: regular rhythm Heart sounds: S1 normal heart sound present and S2 normal heart sound present GI: Other: Abdomen is soft and nontender Skin: Other: Skin is dry and unremarkable Neuro: Other: The patient is awake and alert. Cranial nerves seem grossly intact. She moves her extremities appropriately. Cranial nerves: Yes Equal, round and reactive pupils present Extrem: Other: No calf swelling or tenderness, no asymmetry, no edema Medications Administered Discontinued Medications Generic Name Dose Route Start Last Admin Trade Name Freq PRN Reason Stop Dose Admin Ketorolac Tromethamine 30 mg 07/06/24 22:14 07/06/24 22:28 Ketorolac Tromethamine 30 Mg/Ml Vial IM 07/06/24 22:15 30 mg ONCE ONE Administration Medical Decision Making Medical Decision Making MDM Narrative: the patient is a 28-year-old female who presents for evaluation of chest pain and syncope. On exam the patient seems very upset and complained of a great deal of body pains. Her EKG showed sinus tachycardia. She has a normal chest x-ray. She has a normal D-dimer. Other labs are unremarkable. Clinically I do not have any significant suspicion for any acutely dangerous process. She was given an IM injection of ketorolac for her complaint of body pains. I felt that she was appropriate for discharge to follow-up with her PCP. Lab Data 07/06/24 16:45 07/06/24 16:45 Labs: Lab Results 07/06/24 Range/Units 16:45 WBC 10.1 (4.8-10.8) X10*3/uL RBC 4.78 (4.20-5.50) X10*6/uL Hgb 13.8 (12.0-16.0) g/dl Hct 40.5 (37.0-47.0) % MCV 84.7 (80.0-98.0) fL MCH 28.9 (27.0-33.0) pg MCHC 34.1 (31.0-35.0) g/dl RDW 12.4 (11.0-16.0) % Plt Count 381 D (160-400) X10*3/uL MPV 9.9 (9.4-12.3) fL Immature Gran % (Auto) 0.3 (0.0-0.4) % Neut % (Auto) 74.8 H (45-73) % Lymph % (Auto) 18.2 L (20-40) % [place] % (Auto) 6.4 (2-11) % Eos % (Auto) 0.0 (0-4) % Baso % (Auto) 0.3 (0-2) % Lymph # (Auto) 1.8 (1.2-4.9) X10*3/uL [place] # (Auto) 0.6 (0.1-1.2) X10*3/uL Eos # (Auto) 0.0 (0.0-0.4) X10*3/uL Baso # (Auto) 0.0 (0.0-0.2) X10*3/uL Abs Immat Gran (auto) 0.03 (0.00-0.03) X10*3/uL Absolute Neuts (auto) 7.5 (2.0-8.3) x10*3/uL Absolute Nucleated RBC 0.000 (0.0-0.012) X10*3/uL Nucleated RBC % (auto) 0.0 (0.0-0.2) /100WBC PT 14.2 H (10.9-12.4) SEC INR 1.2 H (0.9-1.1) APTT 33.2 (26.0-36.8) SEC D-Dimer High Sensitivty < 150 NG/ML Sodium 136 (135-145) mmol/L Potassium 3.3 (3.3-5.1) mmol/L Chloride 104 (96-108) mmol/L Carbon Dioxide 18 L (22-29) mmol/L Anion Gap 17 (12-20) BUN 7 L (9-16) mg/dL Creatinine 0.70 (0.5-1.4) mg/dL Estim Creat Clear Calc 105.1 Estimated GFR > 60 Random Glucose 90 (60-115) mg/dL Calcium 9.8 D (8.4-10.2) mg/dL Total Bilirubin 0.6 (0.0-1.0) mg/dL Direct Bilirubin 0.3 (0.0-0.5) mg/dL AST 23 (5-31) U/L ALT 10 (0-31) U/L Alkaline Phosphatase 81 (39-117) U/L Troponin I High Sens < 2.7 (<3.5-17.0) ng/L Total Protein 7.9 (6.5-8.0) g/dL Albumin 4.3 (3.5-5.0) g/dL Lipase 9 (8-78) U/L Beta HCG, Quant < 2 mIU/mL Discharge Plan Discharge Clinical Impression: Chest pain, Palpitations, Syncope Patient Disposition: Home, Self-Care Additional Instructions: Your testing in the emergency room today is very reassuring. There is no sign of any dangerous process. I suspect that the pain in your chest is probably coming from muscles in your chest wall. This kind of pain is often referred to as ?costochondritis. ? You may use ibuprofen and acetaminophen as needed for pain. Please rest and take it easy the next couple of days. It would be good for you to get a primary care doctor. Please work on getting a primary care doctor. You have been given the contact information for the [facility] adult primary care office and also the number for the [facility]. Return to the emergency room if you feel significantly worse. Prescriptions: No Action nitrofurantoin monohyd/m-cryst [Macrobid] 100 mg capsule 100 mg PO BID 7 Days Qty: 14 0RF Rx Instructions: must administer with a meal/food phenazopyridine [Pyridium] 100 mg tablet 100 mg PO TID PRN (Reason: pain) Qty: 6 0RF docusate sodium [Colace] 100 mg capsule 100 mg PO BID PRN (Reason: Constipation) Qty: 14 0RF Chocolate Laxative 15 mg tablet,chewable 7.5 mg PO DAILY 5 Days Qty: 3 0RF cyclobenzaprine 10 mg tablet 10 mg PO TID PRN (Reason: muscle spasm) Qty: 14 0RF promethazine 25 mg suppository 25 mg [place] Q6H PRN (Reason: nausea and vomiting) Qty: 12 0RF naproxen 500 mg tablet 500 mg PO BID PRN (Reason: pain) 10 Days Qty: 20 0RF prednisone 20 mg tablet 40 mg PO DAILY 5 Days Qty: 10 0RF ondansetron 4 mg tablet,disintegrating 4 mg PO ONCE PRN (Reason: nausea and vomiting) Qty: 10 0RF lidocaine 5 % adhesive patch,medicated 1 patch topical DAILY Qty: 15 0RF Rx Instructions: leave on most painful area for up to 12 hrs naproxen 500 mg tablet 500 mg PO BID PRN (Reason: pain) Qty: 20 0RF acetaminophen 500 mg tablet 1,000 mg PO TID PRN (Reason: pain) Qty: 30 0RF ibuprofen 600 mg tablet 600 mg PO Q6H PRN (Reason: pain) Qty: 20 0RF metronidazole 500 mg tablet 500 mg PO BID 7 Days Qty: 14 0RF amoxicillin 500 mg tablet 500 mg PO BID 10 Days Qty: 20 0RF acetaminophen [Tylenol Extra Strength] 500 mg tablet 500 mg PO Q6H PRN (Reason: fever or pain) Qty: 30 0RF ibuprofen 600 mg tablet 600 mg PO Q6H PRN (Reason: fever or pain) Qty: 30 0RF Oral Relief Sore Throat [place] 1.4 % aerosol,spray 1 spray mucous membrane Q4H PRN (Reason: sore throat) Qty: 177 0RF prednisone 20 mg tablet 20 mg PO DAILY 7 Days Qty: 7 0RF ondansetron 4 mg tablet,disintegrating 4 mg PO Q8H 3 Days Qty: 9 0RF amoxicillin 500 mg tablet 500 mg PO BID Qty: 19 0RF Referrals: [facility] [Provider Group] [facility] [Provider Group] Interventions: ED Discharge Assessment Last Done: 07/06/24 22:51 Discharge Date/Time: 07/06/24 22:54 Print Language: Guyanese
[2024-07-06 21:53] VITALS: BP 116/73; PULSE 95; RESP 16; TEMP 36.6; O2SAT 97
[2024-07-06 22:05] LABS: HCG Quantitative < 2 mIU/mL
[2024-07-06] MEDS: Ketorolac Tromethamine 30 MG/ML VIAL IM (22:28)
[2024-07-06 22:51] VITALS: BP 116/73; PULSE 95; RESP 16; TEMP 36.6; O2SAT 97
== END 2024-07-06 22:54 | disposition home or self-care (01) ==
PROVIDERS: Physician Assistant; Emergency Provider Emergency Medicine
DX: R07.89 Other chest pain (principal); R00.2 Palpitations; R55 Syncope and collapse; Z79.899 Other long term (current) drug therapy
CPT/HCPCS: 36415; 71046; 80048; 80076; 83690; 84484; 84702; 85025; 85379; 85610; 85730; 93005; 96372; 99284; J1885

== ENCOUNTER → 2024-07-06 16:37 | Outpatient (BNV) | payer OTHER, SELFPAY | PROVIDERS: Emergency Provider Emergency Medicine; Visit Provider Internal Medicine Cardiovascular Disease | DX: R00.0 Tachycardia, unspecified (principal) | CPT/HCPCS: 93010 ==

== ENCOUNTER 2024-12-11 08:18 | Emergency (ER) | payer OTHER, SELFPAY ==
--- NOTE | ~2024-12-11 | US_ITS ---
EXAMINATION: US LESS THAN 14 WEEKS WITH TRANSVAGINAL HISTORY: RLQ pain, hx appendectomy - POSITIVE UPT COMPARISON: Correlation is made with a pelvic ultrasound dated 07/16/2022. FINDINGS: Transabdominal and endovaginal sonographic examination of the pelvis was performed. The uterus is unremarkable in appearance. No IUP is identified. The endometrial stripe measures 12 mm in thickness. The right ovary measures 3.4 x 2.7 x 2.0 cm and demonstrates a 1.9 x 1.5 x 1.4 cm heterogeneous hypoechoic area which may represent a corpus luteum. The left ovary measures 2.0 x 1.2 x 1.8 cm and is unremarkable. No free fluid is seen in the cul-de-sac. US/US OB pelvic and transvaginal IMPRESSION: No IUP is identified. Correlation with beta hCG levels and follow-up ultrasound are recommended. Electronically signed by: Prashanth Mclaughlin MD 12/11/2024 10:14 AM EDT
[2024-12-11 08:20] VITALS: BP 126/80; PULSE 90; RESP 18; TEMP 36.9; O2SAT 100; BMI 28.2
[2024-12-11 08:37] LABS: Hematocrit 40.1 % (37.0-47.0); Hemoglobin 13.6 g/dl (12.0-16.0); Mean Corpuscular HGB Conc 33.9 g/dl (31.0-35.0); Mean Corpuscular Hemoglobin 29.2 pg (27.0-33.0); Mean Corpuscular Volume 86.1 fL (80.0-98.0); Mean Platelet Volume 9.4 fL (9.4-12.3); Platelet Count 297 X10*3/uL (160-400); Red Blood Count 4.66 X10*6/uL (4.20-5.50); Red Cell Distribution Width 12.6 % (11.0-16.0); White Blood Count 5.6 X10*3/uL (4.8-10.8)
--- NOTE | 2024-12-11 08:37 | ED.GENADULT ---
HPI - General Adult General Chief complaint: Abdominal Pain Stated complaint: Low Abdominal Cramping Time Seen by Provider: 12/11/24 08:31 Source: patient, RN notes reviewed and old records reviewed Mode of arrival: ambulatory Limitations: no limitations History of Present Illness ED Provider: Germán HPI narrative: Patient is a 29-year-old female with history of appendectomy presenting with complaint of right lower quadrant pain for the past 2 days. States pain has been fairly constant. Denies nausea, vomiting, diarrhea, constipation. Denies urinary symptoms. Denies vaginal bleeding or other abnormal vaginal discharge or concern for STIs. Denies fevers. LMP 10/26/24, states menses are irregular. MD complaint: abdominal pain Onset (ago): day(s) Location: abdomen Radiation: non-radiation Quality: aching Pain Consistency: constant Related Data Previous Rx's ?Medication ?Instructions ?Recorded docusate sodium 100 mg capsule 100 mg PO BID PRN Constipation #14 03/14/21 (Colace) caps nitrofurantoin 100 mg PO BID 7 days #14 caps 03/14/21 monohydrate/macrocrystals 100 mg capsule (Macrobid) phenazopyridine 100 mg tablet 100 mg PO TID PRN pain 6 doses #6 03/14/21 (Pyridium) tabs sennosides 15 mg chewable tablet 7.5 mg (1/2 x 15 mg) PO DAILY 03/14/21 (Chocolate Laxative) Constipation 5 days #3 tabs cyclobenzaprine 10 mg tablet 10 mg PO TID PRN muscle spasm #14 05/12/21 tabs promethazine 25 mg rectal 25 mg [place] Q6H PRN nausea and 05/12/21 suppository vomiting #12 ea naproxen 500 mg tablet 500 mg PO BID PRN pain 10 days #20 08/06/21 tabs prednisone 20 mg tablet 40 mg (2 x 20 mg) PO DAILY 5 days 08/06/21 #10 tabs ondansetron 4 mg disintegrating 4 mg PO ONCE PRN nausea and 03/03/22 tablet vomiting #10 tabs acetaminophen 500 mg tablet 1,000 mg (2 x 500 mg) PO TID PRN 07/16/22 pain #30 tabs ibuprofen 600 mg tablet 600 mg PO Q6H PRN pain #20 tabs 07/16/22 metronidazole 500 mg tablet 500 mg PO BID bacterial Vaginosis 07/19/22 7 days #14 tabs lidocaine 5 % topical patch 1 patch topical DAILY #15 ea 08/15/22 naproxen 500 mg tablet 500 mg PO BID PRN pain #20 tabs 08/15/22 acetaminophen 500 mg tablet 500 mg PO Q6H PRN fever or pain 06/16/23 (Tylenol Extra Strength) #30 tabs amoxicillin 500 mg tablet 500 mg PO BID 10 days #20 tabs 06/16/23 ibuprofen 600 mg tablet 600 mg PO Q6H PRN fever or pain 06/16/23 #30 tabs phenol 1.4 % mucosal aerosol spray 1 spray mucous membrane Q4H PRN 06/16/23 (Oral Relief Sore Throat [place]) sore throat #177 mL ondansetron 4 mg disintegrating 4 mg PO Q8H 3 days #9 tabs 10/07/23 tablet prednisone 20 mg tablet 20 mg PO DAILY 7 days #7 tabs 11/04/23 amoxicillin 500 mg tablet 500 mg PO BID #19 tabs 02/25/24 Allergies Allergy/AdvReac Type Severity Reaction Status Date / Time No Known Allergies Allergy Verified 12/11/24 08:21 [No Known Allergies*] Review of Systems Review of Systems: As per HPI Yes all other systems are reviewed and are negative Constitutional: Constitutional: Reports as per HPI [facility] Past Medical History Medical History COVID-19 Pelvic pain Numbness and tingling in right hand Right wrist tendinitis COVID-19 ruled out by laboratory testing Costochondritis Surgical History [place] teeth extracted History of appendectomy Social History Social History Alcohol intake: never Patient Tobacco Use Status: Never used Tobacco Advance Directives: No Advance Directives Information Provided: No Do you have a plan to hurt others: No Plan Current occupational status: employed 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 Blood pressure normal. Heart rate normal. Respiratory rate normal. Temperature normal. Oxygen saturation normal. Const General: cooperative, healthy appearing and no acute distress Orientation/consciousness: oriented to person, oriented to place, oriented to time and patient oriented x3 Limitations: no limitations HENMT Head: Yes normocephalic and Yes atraumatic Ears: external ears normal General nose exam: Normal external nose present Face and sinus: Yes face symmetric Mouth: oropharynx normal and moist mucous membranes Throat: Yes uvula midline Eyes Pupils: Equal, round and reactive pupils present Neck Neck: Yes normal visual inspection and Yes supple Resp Effort & Inspection: normal respiratory effort and able to speak in complete sentences Auscultation: clear to auscultation bilaterally Cardio Rate: regular rate Rhythm: regular rhythm Heart sounds: S1 normal heart sound present and S2 normal heart sound present GI Palpation (GI): Soft to palpation and Tenderness to palpation present (GI) in the RLQ; not at McBurney's point and with no rebound tenderness Auscultation: normoactive bowel sounds General: Yes no CVA tenderness Back/Spine/Pelvis Back: no CVA tenderness Skin General skin exam: elasticity normal and turgor normal Neuro General: oriented to person, oriented to place, oriented to time, patient oriented x3, moves all extremities, no focal motor deficits and CN's II-XI intact bilaterally Cranial nerves: Yes Equal, round and reactive pupils present Cognition (Neuro): normal cognition Extrem General: Yes full ROM, Yes no pedal edema and Yes no calf tenderness Psych Mental Status: mental status grossly normal Affect: normal affect Thought process: Normal thought process present Medical Decision Making Medical Decision Making MDM Narrative: Patient is a 29-year-old female with history of appendectomy presenting with complaint of right lower quadrant pain for the past 2 days. On exam patient is awake, A+Ox3, VS WNL, afebrile, normal neurological exam without focal deficits, physical exam findings as above. Given reported symptoms and physical exam findings, initial differential includes but is not limited to ovarian cyst, ectopic, TOA, UTI. Labs notable for as, no anemia, no significant electrolyte abnormalities, no evidence of GURINDER, hCG of 181. No evidence of infection on UA, urine positive. Ultrasound notable for no visible IUP. My interpretation is in agreement with the radiologist's interpretation. Spoke with Mary Lorenzana CNM at [place] who recommends transfer there for repeat bloodwork and additional imaging to rule out ectopic. Patient updated on results and is agreeable with plan. Patient feels comfortable driving herself to [facility] and I am in agreement with this. Patient understands that she has to drive directly to [facility]. Patient verbalized understanding of and agreement with plan. Differential Diagnosis Differential Diagnoses: The differential diagnosis associated with the presentation includes as per [facility] Admission/Observation Consideration of admission/observation: Escalation of care including admission/observation considered Patient would have been admitted to the hospital had their work up had any findings where hospital admission was appropriate and their clinical presentation warranted hospital admission. Consult Healthcare Provider Management of the patient was discussed with: [employer] (Mary Lorenzana CNM) Lab Data [facility] Lab Attestation statement: I reviewed the patient's lab results. as per [facility] 12/11/24 08:29 12/11/24 08:29 Labs: Lab Results 12/11/24 12/11/24 Range/Units 08:29 09:03 WBC 5.6 (4.8-10.8) X10*3/uL RBC 4.66 (4.20-5.50) X10*6/uL Hgb 13.6 (12.0-16.0) g/dl Hct 40.1 (37.0-47.0) % MCV 86.1 (80.0-98.0) fL MCH 29.2 (27.0-33.0) pg MCHC 33.9 (31.0-35.0) g/dl RDW 12.6 (11.0-16.0) % Plt Count 297 (160-400) X10*3/uL MPV 9.4 (9.4-12.3) fL Absolute Nucleated RBC 0.000 (0.0-0.012) X10*3/uL Nucleated RBC % (auto) 0.0 (0.0-0.2) /100WBC Sodium 138 (135-145) mmol/L Potassium 4.0 D (3.3-5.1) mmol/L Chloride 108 (96-108) mmol/L Carbon Dioxide 23 (22-29) mmol/L Anion Gap 11 L (12-20) BUN 9 (9-16) mg/dL Creatinine 0.59 (0.5-1.4) mg/dL Estim Creat Clear Calc 124.8 Estimated GFR > 60 Random Glucose 89 (60-115) mg/dL Calcium 8.6 D (8.4-10.2) mg/dL Beta HCG, Quant 181 mIU/mL Urine Color Yellow Urine Appearance Clear Urine pH 7.5 (5.0-9.0) Ur Specific [place] 1.015 (1.005-1.025) Urine Protein Negative (Neg-Trace) mg/dL Urine Glucose (UA) Negative (Negative) mg/dL Urine Ketones Negative (Negative) mg/dL Urine Blood Negative (Negative) Urine Nitrite Negative (Negative) Ur Leukocyte Esterase Negative (Negative) Urine Test POSITIVE H (NEGATIVE) Independent Interpretation I performed an independent interpretation of an: Ultrasound Interpretation: No visible IUP on U/S Radiology Impression Discussion of test interpretation with radiology: I have reviewed the radiologist's reading. Radiologist Impression: EXAMINATION: US LESS THAN 14 WEEKS WITH TRANSVAGINAL HISTORY: RLQ pain, hx appendectomy - POSITIVE UPT COMPARISON: Correlation is made with a pelvic ultrasound dated 07/16/2022. FINDINGS: Transabdominal and endovaginal sonographic examination of the pelvis was performed. The uterus is unremarkable in appearance. No IUP is identified. The endometrial stripe measures 12 mm in thickness. The right ovary measures 3.4 x 2.7 x 2.0 cm and demonstrates a 1.9 x 1.5 x 1.4 cm heterogeneous hypoechoic area which may represent a corpus luteum. The left ovary measures 2.0 x 1.2 x 1.8 cm and is unremarkable. No free fluid is seen in the cul-de-sac. US/US OB pelvic and transvaginal IMPRESSION: No IUP is identified. Correlation with beta hCG levels and follow-up ultrasound are recommended. Electronically signed by: Prashanth Mclaughlin MD 12/11/2024 10:14 AM EDT External Record Review External record reviewed: Inpatient record, Office record and Outpatient record Discharge Plan Discharge Clinical Impression: Elevated serum hCG, Abdominal pain, RLQ Patient Disposition: [facility] Transfer Details: To [place] emergency clinic for further evaluation Additional Instructions: You were evaluated in the emergency department today for right lower quadrant abdominal pain and your hCG was noted to be 181. Your ultrasound did not show an intrauterine . You are being transferred to the [facility] at [facility] for further evaluation and management. Please drive directly there without making any additional stops. If anything changes on your way to the hospital in your condition worsens, extract puller and call 911. Prescriptions: No Action nitrofurantoin monohyd/m-cryst [Macrobid] 100 mg capsule 100 mg PO BID 7 Days Qty: 14 0RF Rx Instructions: must administer with a meal/food phenazopyridine [Pyridium] 100 mg tablet 100 mg PO TID PRN (Reason: pain) Qty: 6 0RF docusate sodium [Colace] 100 mg capsule 100 mg PO BID PRN (Reason: Constipation) Qty: 14 0RF Chocolate Laxative 15 mg tablet,chewable 7.5 mg PO DAILY 5 Days Qty: 3 0RF cyclobenzaprine 10 mg tablet 10 mg PO TID PRN (Reason: muscle spasm) Qty: 14 0RF promethazine 25 mg suppository 25 mg [place] Q6H PRN (Reason: nausea and vomiting) Qty: 12 0RF naproxen 500 mg tablet 500 mg PO BID PRN (Reason: pain) 10 Days Qty: 20 0RF prednisone 20 mg tablet 40 mg PO DAILY 5 Days Qty: 10 0RF ondansetron 4 mg tablet,disintegrating 4 mg PO ONCE PRN (Reason: nausea and vomiting) Qty: 10 0RF lidocaine 5 % adhesive patch,medicated 1 patch topical DAILY Qty: 15 0RF Rx Instructions: leave on most painful area for up to 12 hrs naproxen 500 mg tablet 500 mg PO BID PRN (Reason: pain) Qty: 20 0RF acetaminophen 500 mg tablet 1,000 mg PO TID PRN (Reason: pain) Qty: 30 0RF ibuprofen 600 mg tablet 600 mg PO Q6H PRN (Reason: pain) Qty: 20 0RF metronidazole 500 mg tablet 500 mg PO BID 7 Days Qty: 14 0RF amoxicillin 500 mg tablet 500 mg PO BID 10 Days Qty: 20 0RF acetaminophen [Tylenol Extra Strength] 500 mg tablet 500 mg PO Q6H PRN (Reason: fever or pain) Qty: 30 0RF ibuprofen 600 mg tablet 600 mg PO Q6H PRN (Reason: fever or pain) Qty: 30 0RF Oral Relief Sore Throat [place] 1.4 % aerosol,spray 1 spray mucous membrane Q4H PRN (Reason: sore throat) Qty: 177 0RF prednisone 20 mg tablet 20 mg PO DAILY 7 Days Qty: 7 0RF ondansetron 4 mg tablet,disintegrating 4 mg PO Q8H 3 Days Qty: 9 0RF amoxicillin 500 mg tablet 500 mg PO BID Qty: 19 0RF Referrals: [facility] [Provider Group] Print Language: Portuguese
[2024-12-11 08:48] LABS: Anion Gap 11 (12-20); Blood Urea Nitrogen 9 mg/dL (9-16); Calcium 8.6 mg/dL (8.4-10.2); Carbon Dioxide 23 mmol/L (22-29); Chloride 108 mmol/L (96-108); Creatinine Clr Calc Pharmacy 124.8; Estimated Glomerular Filt Rate > 60; Glucose Random 89 mg/dL (60-115); Sodium 138 mmol/L (135-145)
--- OUTSIDE RECORDS SUMMARY | 2024-12-11 08:59 | XMS_ITS | Clinical Summary ---
Author Organization [facility] ity Address [address] [place] [address] Care Team Providers Care Clinical Investigator Name Role Phone Unavailable Primary Care Provider Unavailabl e Social History Tobacco Use Types Packs/Day Years Used Date Smoking Tobacco: Never Assessed Comments Unknown Sex and Gender Information Value Date Recorded Sex Assigned at Not on file Legal Sex Female 10:46 PM EST Gender Identity Not on file Sexual Orientation Not on file Plan of Treatment Health Maintenance Due Date Last Done Comments DTaP,Tdap,and Td Vaccines (1 - Tdap) 11/21/2015 Hepatitis B Vaccines (1 of 3 - 19+ 3-dose series) 11/21/2015 Cervical Cancer Screening: P ap Smear 2017 COVID-19 Vaccine ( - 2023-2 5 season) 2024 Influenza Vaccine (Season Ended) 2025 HIB Vaccines Aged Out No longer eligi ble based on patient's age to complete this topic HPV Vaccines Aged Out No longer eligi ble based on patient's age to complete this topic Hepatitis A Vaccines Aged Out No long er eligible based on patient's age to complete this topic IPV Vaccines Aged Out No longer eligi ble based on patient's age to complete this topic MMR Vaccines Aged Out No longer eligi ble based on patient's age to complete this topic Meningococcal ACWY Vaccine Aged Out N o longer eligible based on patient's age to complete this topic Meningococcal B Vaccine Aged Out No l onger eligible based on patient's age to complete this topic Pneumococcal Vaccine: Pediat rics (0 to 5 Years) and At-Risk Patients (6 to 64 Years) Aged Out No longer eligible b ased on patient's age to complete this topic RSV Immunization Patients Un kate 20 months Aged Out No longer eligible b ased on patient's age to complete this topic Varicella Vaccines Aged Out No longer eligible based on patient's age to complete this topic
[2024-12-11 09:11] LABS: Appearance Urine Clear; Color Urine Yellow; Glucose Urine UA Negative (Negative); Leukocyte Esterase Urine Negative (Negative); Nitrite Urine Negative (Negative); PH 7.5 (5.0-9.0); Specific Gravity - Urine 1.015 (1.005-1.025); UPreg QC Valid YES; Urine Blood Negative (Negative); Urine Ketones Negative (Negative); Urine Protein Negative (Neg-Trace)
[2024-12-11 09:13] LABS: Urine Pregnancy POSITIVE (NEGATIVE)
[2024-12-11 10:04] LABS: HCG Quantitative 181 mIU/mL
[2024-12-11 11:28] VITALS: BP 124/76; PULSE 86; RESP 16; TEMP 36.8; O2SAT 100
[2024-12-11 11:54] VITALS: BP 124/76; PULSE 86; RESP 16; TEMP 36.8; O2SAT 100
== END 2024-12-11 11:58 | disposition short-term general hospital (02) ==
PROVIDERS: Registered Nurse Emergency; Emergency Provider Emergency Medicine Emergency Medical Services
DX: R25.2 Cramp and spasm (principal); R10.31 Right lower quadrant pain; R79.89 Other specified abnormal findings of blood chemistry; Z79.899 Other long term (current) drug therapy
CPT/HCPCS: 36415; 76801; 76817; 80048; 81003; 81025; 84702; 85027; 99284

== ENCOUNTER → 2024-12-11 08:38 | Outpatient (BNV) | payer OTHER, SELFPAY | PROVIDERS: Emergency Provider Emergency Medicine Emergency Medical Services; Visit Provider Radiology Diagnostic Radiology | DX: O99.891 Other specified diseases and conditions complicating pregnancy (principal); R10.31 Right lower quadrant pain; Z3A.01 Less than 8 weeks gestation of pregnancy | CPT/HCPCS: 76801; 76817 ==